=== PATIENT | female | born 1965 | race Caucasian/White ===

== ENCOUNTER → 2019-12-13 07:56 | Outpatient (CLI) | payer OTHER, SELFPAY ==
--- NOTE | ~2019-12-13 | XR_ITS ---
XR chest 2V DATE: 12/13/2019 08:15 INDICATION: Cough TECHNIQUE: PA and lateral views COMPARISON: 01/16/2015 2 view chest FINDINGS: Normal heart size. No hilar or mediastinal enlargement. No pulmonary infiltrate or consolid ation, pleural effusion or pulmonary vascular congestion or pneumothorax is detected. Dextroscoliosis of the thoracic spine. IMPRESSION: No active cardiopulmonary disease or significant change since 01/20/2015 Reviewed, dictated and finalized at location B. IMPRESSION: No active cardiopulmonary disease or significant change since 2014
== END ==
PROVIDERS: PCP Family Medicine; Visit Provider Family Medicine
DX: R05 Cough (principal)
CPT/HCPCS: 71046

== ENCOUNTER 2021-10-01 00:11 | Day surgery (SDC) | payer OTHER, SELFPAY ==
[2021-09-12 14:14] VITALS: BMI 34.7
[2021-10-01 07:39] VITALS: BP 125/83; PULSE 76; RESP 18; TEMP 36.3; O2SAT 99; BMI 34.3
[2021-10-01] MEDS: LACTATED RINGERS 1,000 ML 150 ML IV CONT (07:48)
--- NOTE | 2021-10-01 08:10 | WPDANESEPPF ---
Anes - Initial Pre Proc Eval Procedure: Operation Date: 10/01/21 08:30 Proposed Procedures p Screening Colonoscopy - Ben Mariscal MD Date/Time: 10/01/21 08:10 Surgeon: Ben Mariscal MD Pre Op Diagnosis: neoplasm screening Patient Data Age: 55 Gender: F Height: 1.73 m Weight: 102.4 kg Last Vital Signs Temp 36.3 C L 10/01/21 07:39 Pulse 76 10/01/21 07:39 Resp 18 10/01/21 07:39 BP 125/83 10/01/21 07:39 Pulse Ox 99 10/01/21 07:39 Allergies Allergy/AdvReac Type Severity Reaction Status Date / Time diclofenac [From Arthrotec] Allergy Severe Rash Verified 10/01/21 07:38 misoprostol [From Arthrotec] Allergy Severe Rash Verified 10/01/21 07:38 nitrofurantoin Allergy Severe Rash Verified 10/01/21 07:38 [From Macrobid] codeine Allergy Unknown vaginal Verified 10/01/21 07:38 itching Penicillins Allergy Unknown Itching Verified 10/01/21 07:38 ciprofloxacin AdvReac Unknown joint pain Verified 10/01/21 07:38 Home Medications Medication Instructions Recorded Confirmed Type clonazepam 2 mg tablet 2 mg PO DAILY 01/18/21 09/12/21 History lamotrigine 200 mg tablet 200 mg PO BID tablet 01/18/21 09/12/21 History linaclotide 145 mcg capsule 145 mcg PO DAILY 01/18/21 09/12/21 History cholecalciferol (vitamin D3) 50 50 mcg PO DAILY #90 tablet 08/01/21 09/12/21 Rx mcg (2,000 unit) tablet estradiol 10 mcg vaginal tablet 10 mcg VAGINAL 2XW 08/01/21 09/12/21 History calcium carbonate 400 mg calcium 800 mg PO DAILY tablet 09/12/21 09/12/21 History (1,000 mg) chewable tablet sulfamethoxazole 800 1 tablet PO Q12H #6 tablet 09/12/21 09/12/21 Rx mg-trimethoprim 160 mg tablet Patient hx anesthesia problems: none Family hx anesthesia problems: none Results Review: All pre-operative results and documents have been reviewed as part of the pre-operative evaluation. [facility] Past Medical History Medical History Anxiety H/O irritable bowel syndrome History of vaginal delivery x1 Hx of cyst of breast 1989 Surgical History Surgical History History of bladder suspension procedure History of bunionectomy of left great toe 2016, 2018 History of hysterectomy 2001 History of left knee replacement 2004 History of right knee joint replacement 1979 Hx of cholecystectomy mid 1993 Hx of hysterectomy 2000 Hx of ovarian cystectomy 1987 & 1992 Hx of tonsillectomy early 1090s Hx of tubal ligation 1994 Family History Family History Father Cancer of kidney Mother Cancer of kidney Hypertension Heart problem Daughter Anxiety Grandparent Diabetes mellitus Grandparent Alcoholism Social History Social History Smoking status: Never smoker Second hand tobacco smoke exposure: Yes Alcohol intake: never Substance use: never Substance use type: does not use Living arrangements: with family Spiritual care concerns: No Anes - Eval Final PreProcedure Day of Procedure 10/01/21 08:10 Patient weight: obese Heart: regular rate and rhythm Lungs: clear to auscultation Airway: Mallampati scale class II Neurological: alert and oriented Last oral intake: >/= 8 hours ASA classification: II Emergent: no Anesthetic plan: proceed Anesthesia type and monitoring: general GIVS and standard monitoring Results Review: All pre-operative results and documents have been reviewed as part of the pre-operative evaluation. Informed Consent: The patient's anesthetic plan and its attendant risks and benefits were discussed with the patient/family/POA. Questions were solicited and answers provided to the satisfaction of the patient/family/POA.
--- NOTE | 2021-10-01 08:18 | WPDGICN ---
Assessment and Plan Assessment and plan (1) Screening for colon cancer: Code(s): Z12.11 - Encounter for screening for malignant neoplasm of colon Status: Acute Assessment and Plan: Patient presents for neoplasia screening colonoscopy. She appears to be at average risk for colon polyps. Further recommendations will be given after endoscopy. GI Consult Note Consult date/time: 10/01/21 08:18 HPI: Kayla Castañeda is a 55 year old female Presents for screening colonoscopy. Patient's current weight appetite bowel movements are normal. She denies abdominal pain. She has had no bleeding. Family history is noncontributory. Patient presents for neoplasia screening. Review of Systems Review of Systems: All systems reviewed & are unremarkable except as noted in HPI and below PMFSH Past Medical History Medical History Anxiety H/O irritable bowel syndrome History of vaginal delivery x1 Hx of cyst of breast 1989 Surgical History Surgical History History of bladder suspension procedure History of bunionectomy of left great toe 2016, 2018 History of hysterectomy 2000 History of left knee replacement 2003 History of right knee joint replacement 1979 Hx of cholecystectomy mid 1993 Hx of hysterectomy 2000 Hx of ovarian cystectomy 1987 & 1992 Hx of tonsillectomy early 1090s Hx of tubal ligation 1994 Family History Family History Father Cancer of kidney Mother Cancer of kidney Hypertension Heart problem Daughter Anxiety Grandparent Diabetes mellitus Grandparent Alcoholism Social History Social History Smoking status: Never smoker Second hand tobacco smoke exposure: Yes Alcohol intake: never Substance use: never Substance use type: does not use Living arrangements: with family Spiritual care concerns: No Meds Home Medications and Allergies Home Medications Medication Instructions Recorded Confirmed Type clonazepam 2 mg tablet 2 mg PO DAILY 01/18/21 09/12/21 History lamotrigine 200 mg tablet 200 mg PO BID tablet 01/18/21 09/12/21 History linaclotide 145 mcg capsule 145 mcg PO DAILY 01/18/21 09/12/21 History cholecalciferol (vitamin D3) 50 50 mcg PO DAILY #90 tablet 08/01/21 09/12/21 Rx mcg (2,000 unit) tablet estradiol 10 mcg vaginal tablet 10 mcg VAGINAL 2XW 08/01/21 09/12/21 History calcium carbonate 400 mg calcium 800 mg PO DAILY tablet 09/12/21 09/12/21 History (1,000 mg) chewable tablet sulfamethoxazole 800 1 tablet PO Q12H #6 tablet 09/12/21 09/12/21 Rx mg-trimethoprim 160 mg tablet Allergies Allergy/AdvReac Type Severity Reaction Status Date / Time diclofenac [From Arthrotec] Allergy Severe Rash Verified 10/01/21 07:38 misoprostol [From Arthrotec] Allergy Severe Rash Verified 10/01/21 07:38 nitrofurantoin Allergy Severe Rash Verified 10/01/21 07:38 [From Macrobid] codeine Allergy Unknown vaginal Verified 10/01/21 07:38 itching Penicillins Allergy Unknown Itching Verified 10/01/21 07:38 ciprofloxacin AdvReac Unknown joint pain Verified 10/01/21 07:38 Vital Signs Vital Signs - 24 hr 10/01/21 07:39 Temperature 97.3 F L Pulse Rate 76 Respiratory Rate 18 Blood Pressure 125/83 Pulse Oximetry 99 Exam Narrative: Physical exam reveals patient be alert. Vital signs stable. HEENT exam is unremarkable. Patient is anicteric. Lungs are clear to auscultation and percussion. Heart is without murmur or extra sounds. Abdominal exam bowel sounds are present soft nontender with no hepatosplenomegaly. Digital external rectal exam is normal.
[2021-10-01 08:46] VITALS: BP 128/71; PULSE 75; RESP 26; O2SAT 100
[2021-10-01 08:56] VITALS: BP 96/59; PULSE 70; RESP 16; O2SAT 100
[2021-10-01 09:06] VITALS: BP 109/71; PULSE 70; RESP 20; O2SAT 100
== END 2021-10-01 09:30 | disposition home or self-care (01) ==
PROVIDERS: PCP Internal Medicine; Visit Provider Internal Medicine Gastroenterology
PROC: 0DJD8ZZ Inspection of Lower Intestinal Tract, Via Natural or Artificial Opening Endoscopic (ICD-10-PCS; CPT 45378; principal; 2021-10-01 08:30)
DX: Z12.11 Encounter for screening for malignant neoplasm of colon (principal); K64.8 Other hemorrhoids; F41.9 Anxiety disorder, unspecified; E66.9 Obesity, unspecified; Z68.34 Body mass index [BMI] 34.0-34.9, adult
CPT/HCPCS: 45378; J2704; J7120

== ENCOUNTER 2022-04-12 09:29 | Outpatient (CLI) | payer OTHER, SELFPAY ==
--- NOTE | ~2022-04-12 | DEXA_ITS ---
Bone Density Report Name: ANGELES MASON Age: 56 Sex: Female Ethnicity: White Date of : 1965 Indication: postmenopausal; screening for osteoporosis; height loss; hysterectomy; Referring Provider: SAUL ZAMORA Study: Bone densitometry was performed. Exam Date: April 12, 2022 Accession number: [id number] Bone Density: Region BMD T-score Z-score Classification AP Spine(L3, L4) 0.968 -1.2 0.2 Osteopenia Femoral Neck (Left) 0.809 -0.4 0.9 Normal Total Hip (Left) 0.834 -0.9 0.0 Normal Femoral Neck (Right) 0.819 -0.3 0.9 Normal Total Hip (Right) 0.928 -0.1 0.7 Normal Total Hip Mean 0.881 -0.5 0.4 Normal World Health Organization criteria for BMD impression classify patients as: Normal (T-score at or above -1.0), Osteopenia (T-score between -1.0 and -2.5), or Osteoporosis (T-score at or below -2.5). 10-year Fracture Risk(1): Major Osteoporotic Fracture 5.7% Hip Fracture 0.1% Reported Risk Factors: [place] (), Neck BMD=0.809, BMI=36.1 (1) FRAX(R) Version 3.08. Fracture probability calculated for an untreated patient. Fracture probability may be lower if the patient has received treatment. Clinical Information Provided by Patient: Has used the following medications: Vitamin D, Calcium Has the following medical conditions: Hysterectomy Patient maximum height was 67 Menopause Age: 36 No regular weight bearing exercise Drinks caffeinated beverages Onset of menses at age 12 Number of children 1 Impression: The patient has low bone mass, based on the Total Spine T-score. The patient has an estimated ten-year risk of hip fracture of 0.1% and an estimated ten-year risk of major fracture of 5.7%, based on the WHO FRAX algorithm. Discussion: BONE DENSITY IS LOW AT ONE OR MORE SKELETAL SITES. This patient's lowest T-score is low at one or more skeletal sites. It meets the World Health Organization's (WHO) criteria for ?low bone mass? (T-score between -1.0 and -2.5). The patient's 10-year risk of fracture as calculated by FRAX is less than the threshold where pharmacological therapy is recommended by the National Osteoporosis Foundation (NOF). However, all treatment decisions require clinical judgment and consideration of individual patient factors, including patient preferences, comorbidities, previous drug use, risk factors not captured in the FRAX model (e.g., frailty, falls, vitamin D deficiency, increased bone turnover, interval significant decline in bone density) and possible under or overestimation of fracture risk by FRAX. The patient should follow a healthful lifestyle (good nutrition with adequate calcium and vitamin D, and appropriate weight-bearing exercise). Follow-Up: Consider repeating this study in 2 to 3 years to reassess this patient's status, or sooner if
== END 2022-04-12 09:30 | disposition home or self-care (01) ==
LOC: ANHIMG 09:30
PROVIDERS: PCP Internal Medicine; Visit Provider Internal Medicine
DX: Z78.0 Asymptomatic menopausal state (principal); M85.88 Other specified disorders of bone density and structure, other site
CPT/HCPCS: 77080

== ENCOUNTER 2022-09-17 01:11 | Day surgery (SDC) | payer OTHER, SELFPAY ==
[2022-09-05 13:44] VITALS: BMI 36.2
[2022-09-17 08:10] VITALS: BP 123/83; PULSE 85; RESP 16; TEMP 36.3; O2SAT 96; BMI 37.0
[2022-09-17] MEDS: LACTATED RINGERS 1,000 ML 150 ML IV CONT (08:18)
--- NOTE | 2022-09-17 08:36 | WPDANESEPPF ---
Anes - Initial Pre Proc Eval Procedure: Operation Date: 09/17/22 09:30 Proposed Procedures p Esophagogastroduodenoscopy EGD - Ben Mariscal MD Date/Time: 09/17/22 08:36 Surgeon: Ben Mariscal MD Pre Op Diagnosis: GERD Patient Data Age: 56 Gender: F Height: 1.7 m Weight: 107.2 kg Last Vital Signs Temp 36.3 C L 09/17/22 08:10 Pulse 85 09/17/22 08:10 Resp 16 09/17/22 08:10 BP 123/83 09/17/22 08:10 Pulse Ox 96 09/17/22 08:10 O2 Del Method Room Air 09/17/22 08:10 Allergies Allergy/AdvReac Type Severity Reaction Status Date / Time diclofenac [From Arthrotec] Allergy Severe Rash Verified 09/17/22 08:09 misoprostol [From Arthrotec] Allergy Severe Rash Verified 09/17/22 08:09 nitrofurantoin Allergy Severe Rash Verified 09/17/22 08:09 [From Macrobid] cinnamon Allergy Mild Blister Verified 09/17/22 08:09 codeine Allergy Unknown vaginal Verified 09/17/22 08:09 itching Penicillins Allergy Unknown Itching Verified 09/17/22 08:09 ciprofloxacin AdvReac Unknown joint pain Verified 09/17/22 08:09 Home Medications Medication Instructions Recorded Confirmed Type linaclotide 145 mcg capsule 145 mcg PO DAILY 01/18/21 09/17/22 History (Linzess) estradiol 10 mcg vaginal tablet 10 mcg vaginal 2XW 08/01/21 09/17/22 History (Vagifem) calcium carbonate 400 mg calcium 800 mg PO DAILY 09/12/21 09/17/22 History (1,000 mg) chewable tablet (Antacid Ultra Strength) clonazepam 2 mg tablet 1 mg PO DAILY 05/07/22 09/17/22 History triamcinolone acetonide 0.1 % 1 applic dental TID PRN mouth 05/07/22 09/17/22 Rx dental paste irritation #5 grams vibegron 75 mg tablet (Gemtesa) 75 mg PO DAILY 05/07/22 09/17/22 History omeprazole 20 mg capsule,delayed 20 mg PO BID #180 caps 08/15/22 09/17/22 Rx release Caltrate 600 plus D 1 tab-cap PO DAILY 09/05/22 09/17/22 History Osteo Bi-Flex 1 tab-cap PO DAILY 09/05/22 09/17/22 History multivitamin-ferrous 1 tablet PO DAILY 09/05/22 09/17/22 History fumarate-folic acid 18 mg-400 mcg tablet (Centrum Women) lamotrigine 200 mg tablet 200 mg PO .COMPLEX 09/06/22 09/17/22 History Patient hx anesthesia problems: none Family hx anesthesia problems: none Results Review: All pre-operative results and documents have been reviewed as part of the pre-operative evaluation. [facility] Past Medical History Medical History Anxiety Broken toe H/O irritable bowel syndrome History of vaginal delivery x1 Hx of cyst of breast 1989 Surgical History Surgical History History of bladder suspension procedure History of bunionectomy of left great toe 2016, 2018 History of hysterectomy 2000 History of left knee replacement 2003 History of right knee joint replacement 1979 Hx of cholecystectomy mid 1993 Hx of hysterectomy 2000 Hx of ovarian cystectomy 1987 & 1992 Hx of tonsillectomy early 1090s Hx of tubal ligation 1994 Family History Family History Father Cancer of kidney Mother Cancer of kidney Hypertension Heart problem Daughter Anxiety Grandparent Diabetes mellitus Grandparent Alcoholism Social History Social History Smoking status: Never smoker Second hand tobacco smoke exposure: Yes Alcohol intake: never Substance use: never Substance use type: does not use Lack of Transportation: No Lack of Food: Never True Current Housing: I Have Housing Concerned About Future Housing: Decline to Answer Difficulty Paying Gas/Electric Bills: No Difficulty Paying for Meds: No Currently Unemployed: No Education: Master's Degree or Higher Difficulty w/ Childcare or Family Care: No Living arrangements: with family Gender identity (if verbalized by the patient): Female Spiritual care conc
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
[2022-09-17 10:06] VITALS: BP 101/64; PULSE 72; RESP 23; O2SAT 97
[2022-09-17 10:16] VITALS: BP 101/64; PULSE 72; RESP 23; O2SAT 97
[2022-09-17 10:26] VITALS: BP 110/71; PULSE 70; RESP 20; O2SAT 97
== END 2022-09-17 10:35 | disposition home or self-care (01) ==
PROVIDERS: PCP Family Medicine; Visit Provider Internal Medicine Gastroenterology
PROC: 0DJ08ZZ Inspection of Upper Intestinal Tract, Via Natural or Artificial Opening Endoscopic (ICD-10-PCS; CPT 43235; principal; 2022-09-17 09:30)
DX: K22.2 Esophageal obstruction (principal); K21.9 Gastro-esophageal reflux disease without esophagitis; F41.9 Anxiety disorder, unspecified
CPT/HCPCS: 43450; 43235; 87081; J2704; J7120

== ENCOUNTER 2022-11-07 19:23 | Emergency (ER) | payer OTHER, SELFPAY ==
--- NOTE | 2022-11-07 19:25 | ED.GENADULT ---
HPI - General Adult General Chief complaint: Skin/Abscess/Foreign Body Stated complaint: face injury; busted lip Time Seen by Provider: 11/07/22 19:35 Source: patient Mode of arrival: ambulatory Limitations: no limitations History of Present Illness HPI narrative: 57-year-old female presents with concern for a nonhealing wound on her lip. She reports on Friday she tripped and fell landing on her face. She reports she sustained a laceration to her upper lip. She reports her boyfriend told her it would heal on its own. She reports it is not healing well. She reports the wound was gaping. She reports scabs started to form but when she eats the scab seems to open up. She has been using Vaseline and trying eat soft foods. She reports other facial injuries her healing without issue, she had an abrasion on her forehead that is healing and a bruise to her nose that is resolving. MD complaint: Wound Related Data Home Medications Medication Instructions Recorded Confirmed linaclotide 145 mcg capsule 145 mcg PO DAILY 01/18/21 11/07/22 (Linzess) estradiol 10 mcg vaginal tablet 10 mcg vaginal 2XW 08/01/21 11/07/22 (Vagifem) calcium carbonate 400 mg calcium 800 mg PO DAILY 09/12/21 11/07/22 (1,000 mg) chewable tablet (Antacid Ultra Strength) clonazepam 2 mg tablet 1 mg PO DAILY 05/07/22 11/07/22 vibegron 75 mg tablet (Gemtesa) 75 mg PO DAILY 05/07/22 11/07/22 Caltrate 600 plus D 1 tab-cap PO DAILY 09/05/22 11/07/22 Osteo Bi-Flex 1 tab-cap PO DAILY 09/05/22 11/07/22 multivitamin-ferrous 1 tablet PO DAILY 09/05/22 11/07/22 fumarate-folic acid 18 mg-400 mcg tablet (Centrum Women) lamotrigine 200 mg tablet 200 mg PO .COMPLEX 09/06/22 11/07/22 Allergies Allergy/AdvReac Type Severity Reaction Status Date / Time diclofenac [From Arthrotec] Allergy Severe Rash Verified 11/07/22 19:29 misoprostol [From Arthrotec] Allergy Severe Rash Verified 11/07/22 19:29 nitrofurantoin Allergy Severe Rash Verified 11/07/22 19:29 [From Macrobid] cinnamon Allergy Mild Blister Verified 11/07/22 19:29 codeine Allergy Unknown vaginal Verified 11/07/22 19:29 itching Penicillins Allergy Unknown Itching Verified 11/07/22 19:29 ciprofloxacin AdvReac Unknown joint pain Verified 11/07/22 19:29 Review of Systems Review of Systems: CONSTITUTIONAL: Denies malaise, chills, sweats, or fever. EYES: Denies visual changes ENT: Denies rhinorrhea, congestion CARDIOVASCULAR: Denies chest pain, palpitations RESPIRATORY: Denies cough or dyspnea. SKIN: Reports wound to her upper lip MUSCULOSKELETAL: Denies myalgia. NEUROLOGIC: Denies headache. All systems reviewed & are unremarkable except as noted in HPI and below PMFSH Past Medical History Medical History Anxiety Broken toe H/O irritable bowel syndrome History of vaginal delivery x1 Hx of cyst of breast 1989 Surgical History Surgical History History of bladder suspension procedure History of bunionectomy of left great toe 2016, 2018 History of hysterectomy 2000 History of left knee replacement 2004 History of right knee joint replacement 1979 Hx of cholecystectomy mid 1993 Hx of hysterectomy 2000 Hx of ovarian cystectomy 1987 & 1992 Hx of tonsillectomy early 1090s Hx of tubal ligation 1994 Family History Family History Father Cancer of kidney Mother Cancer of kidney Hypertension Heart problem Daughter Anxiety Grandparent Diabetes mellitus Grandparent Alcoholism Social History Social History Smoking status: Never smoker Second hand tobacco smoke exposure: Yes Alcohol intake: never Substance use: never Substance use type: does not use Lack of Transportation: No Lack of Food: Never True Current Housing: I Have Housing
[2022-11-07 19:32] VITALS: BP 129/89; PULSE 79; RESP 16; TEMP 36.7; O2SAT 100
== END 2022-11-07 19:50 | disposition home or self-care (01) ==
PROVIDERS: Emergency Provider Nurse Practitioner; PCP Family Medicine
DX: S01.511A Laceration without foreign body of lip, initial encounter (principal); W01.0XXA Fall on same level from slipping, tripping and stumbling without subsequent striking against object, initial encounter; Z96.653 Presence of artificial knee joint, bilateral; F41.9 Anxiety disorder, unspecified
CPT/HCPCS: 99213; G0463

== ENCOUNTER 2023-06-16 15:35 | Outpatient (CLI) | payer OTHER, SELFPAY ==
[2023-06-16 19:56] LABS: Appearance Urine Clear (Clear); Bilirubin Urine Negative (Negative); Blood Urine Negative (Negative); Color Urine Yellow (Yellow); Glucose Urine UA Negative (Negative); Ketones Urine Negative (Negative); Leukocyte Esterase Ur Negative LEU/UL (Negative); Nitrate Urine Negative (Negative); Protein Urine Negative (Negative); Specific Grav Ur 1.014 (1.001-1.035); Urobilinogen Urine 0.2 mg/dL (<2.0); pH Urine 5.5 (5.0-9.0)
[2023-06-16 19:59] LABS: Add Urine Microscopic? NO
[2023-06-16 20:02] LABS: Rheumatoid Factor < 12.0 IU/ML (<12)
== END 2023-06-16 15:36 | disposition home or self-care (01) ==
LOC: ANHGOSHLAB 15:37
PROVIDERS: PCP Family Medicine; Visit Provider Nurse Practitioner
DX: R82.90 Unspecified abnormal findings in urine (principal); M25.50 Pain in unspecified joint
CPT/HCPCS: 36415; 81003; 86430

== ENCOUNTER → 2023-08-05 09:55 | Outpatient (CLI) | payer OTHER, SELFPAY ==
--- NOTE | ~2023-08-05 | XR_ITS ---
AP view of the pelvis and AP and lateral views of the bilateral hips Clinical history: Pain Findings: No acute fracture or dislocation is seen. Osseous alignment is anatomic. Bilateral hip and SI joint spaces are preserved. Soft tissues are unremarkable. Impression: No significant abnormality is seen. Reviewed, dictated and finalized at location . ESPONDENCE COORDINATOR Impression: No significant abnormality is seen.
== END ==
PROVIDERS: PCP Family Medicine; Visit Provider Anesthesiology Pain Medicine
DX: M25.552 Pain in left hip (principal); M25.551 Pain in right hip
CPT/HCPCS: 73521

== ENCOUNTER → 2023-08-08 15:09 | Outpatient (CLI) | payer OTHER, SELFPAY ==
--- NOTE | ~2023-08-08 | MM_ITS ---
EXAMINATION: MM screening daphne BI w sonia HISTORY: Screening TECHNIQUE: Craniocaudal and mediolateral oblique 3-D tomosynthesis images were obtained and synthetic 2-D images were generated. CAD analysis was submitted and interpreted. COMPARISON: No prior mammogram is available for comparison at this institution. BREAST PARENCHYMAL COMPOSITION: There are scattered areas of fibroglandular density. FINDINGS: There is no evidence of suspicious mass, calcification, or architectural distortion to sugg est malignancy in either breast. There has been no suspicious interval change. IMPRESSION: 1. No mammographic evidence of malignancy. 2. Recommend routine screening mammography in one year. BI-RADS Category 1: Negative Reviewed, dictated and finalized at location A. NKLER TRUCK DRIVER
== END ==
PROVIDERS: PCP Registered Nurse; Visit Provider Registered Nurse
DX: Z12.31 Encounter for screening mammogram for malignant neoplasm of breast (principal)
CPT/HCPCS: 77063; 77067

== ENCOUNTER → 2023-09-01 15:14 | Outpatient (CLI) | payer OTHER, SELFPAY ==
--- NOTE | ~2023-09-01 | XR_ITS ---
EXAMINATION: XR knee RT 3V DATE: 09/01/2023 15:31 INDICATION: Bilateral primary osteoarthritis of knee. TECHNIQUE: 3 views of right knee including standing views were obtained. COMPARISON: None. FINDINGS: Bone alignment is normal. No fracture. There is mild tricompartmental osteoarthritis. There is chondrocalcinosis of the menisci. No knee joint effusion. IMPRESSION: 1. Mild right knee osteoarthritis. Reviewed, dictated and finalized at location E. ATRIC ASSISTANT
--- NOTE | ~2023-09-01 | XR_ITS ---
EXAMINATION: XR knee LT 3V DATE: 09/01/2023 15:31 INDICATION: Left knee pain. TECHNIQUE: 3 views of left knee including standing views were obtained. COMPARISON: Left knee radiographs 01/26/2014 FINDINGS: Bone alignment is normal. No fracture. There is moderate osteoarthritis of lateral compartm ent and mild osteoarthritis of medial and patellofemoral compartments. No knee joint effusion. IMPRESSION: 1. Moderate left knee osteoarthritis. Reviewed, dictated and finalized at location E. INSERTER
== END ==
PROVIDERS: PCP Anesthesiology Pain Medicine; Visit Provider Anesthesiology Pain Medicine
DX: M17.0 Bilateral primary osteoarthritis of knee (principal)
CPT/HCPCS: 73562

== ENCOUNTER 2023-09-05 13:30 | Outpatient (RCR) | payer OTHER, SELFPAY ==
--- NOTE | 2023-08-07 16:57 | OPREHPOC ---
Outpatient Therapy Plan of Care This is a Multidisciplinary Plan of Care that may contain components documented by all disciplines (PT, OT, and ST.) PT Problem 1 PT Problem #1 Knowledge Deficit PT Goal 1 Goal Pt to be IND with issued HEP. Target Visit 8 PT Problem 2 PT Problem #2 Pain PT Goal 1 Goal Pt to report hip pain no greater than 3/10 in the last week. Target Visit 8 PT Goal 2 Goal Pt to report 75% improvement in overall symptoms. Target Visit 8 PT Problem 3 PT Problem #3 Impaired Strength PT Goal 1 Goal Pt to improve antwon hip strength to grossly 4/5. Target Visit 8 PT Goal 2 Goal Pt to improve 5xSTS time from 25s to 15s without UE support Target Visit 8 PT Problem 4 PT Problem #4 Impaired Gait PT Goal 1 Goal Pt to improve 2 min walk distance from 288ft to 350ft. Target Visit 8 PT Goal 2 Goal Pt to ambulate with equal stride length Target Visit 8
--- NOTE | 2023-08-07 16:57 | PTOPEVAL1 ---
Assessment and note entered by Rodrigue Radford, PT, DPT Evaluation Information Assessment Status Evaluation Diagnosis R hip pain Onset 3 months Subjective Information Pt states she has pain in both hips but mostly the R hip. She states she has had more than 50 falls in her adult life. She states her hip hurts all the time, especially when trying to get up from a chair, getting out of bed, and on stairs. She states she avoids stairs d/t pain. Pt states her feet are messed up and has had 4 surgeries. Pt does not work, she likes to walk her dog. Reported Pain Level Pain Score 6: Self Report Assessment PT Clinical Summary Kayla presents to therapy today for her initial evaluation with a diagnosis of hip pain. Today she demonstrate passive hip ROM that is WNL but demonstrates significant amounts of hip weakness antwon. She ambulates with deviations including a L side trunk lean with no passive hip extension on the R. Skilled therapy services are indicated to manage pain, improve strength, improve gait, and to promote a return to PLOF without limitations. LEFS: Plan of Care Interventions Electrical Stimulation,Gait Training,Hot Pack/Cold Pack,Manual Therapy,Neuro Re-education,Patient/ Caregiver Educati,Therapeutic Activities, Therapeutic Exercise PT Services Indicated Yes Treatment Frequency and 2x/wk for 8 visits Duration These treatments will address the objective and functional deficits as defined above. The patient will be advanced safely and appropriately in order for the patient to progress towards his/her prior level of function. Additional exercises will be introduced and as well as a comprehensive home exercise program upon discharge, if needed, ?to ensure carryover of functional gains achieved in the clinic. This treatment plan has been reviewed and agreement upon by the patient.
--- NOTE | 2023-08-25 09:06 | PCPTNOTE ---
Patient cancelled this morning secondary to illness.
--- NOTE | 2023-09-05 14:47 | PTOPDC ---
Assessment and note entered by Rodrigue Radford, PT, DPT Evaluation Information Assessment Status Discharge Diagnosis R hip pain Onset 3 months Subjective Information Pt states overall she feels like she is making a lot of progress since starting therapy. She states her hips are feeling really good, except for when she sits or stands for a prolonged period of time . She states she is starting to feel more confident with stairs but is still nervous on these. Reported Pain Level Pain Score 4: Self Report Assessment PT Clinical Summary Kayla presents to therapy today for her progress report following 7 visits of skilled therapy to treat her diagnosis of hip pain. Today she demonstrate improved passive hip strength, equal to the uninvolved side, improved hip strength antwon, and improved gait speed. Her functional mobility is not primarily limited by her knee pain. She elected to continue with her HEP IND and get order for her knee if her upcoming knee injections d/t help with her pain. LEFS: Plan of Care PT Services Indicated No
== END 2023-09-05 15:52 | disposition home or self-care (01) ==
LOC: ANHGOSHPT 13:30
PROVIDERS: Visit Provider Anesthesiology Pain Medicine
DX: M54.9 Dorsalgia, unspecified (principal); M15.9 Polyosteoarthritis, unspecified; M25.559 Pain in unspecified hip; G89.29 Other chronic pain
CPT/HCPCS: 97110; 97161; 97530

== ENCOUNTER 2024-03-16 09:28 | Outpatient (CLI) | payer OTHER, SELFPAY ==
--- NOTE | ~2024-03-16 | MR_ITS ---
MRI left knee without contrast Ordering provider: Jone Schaefer MD History: . M17.0 - Bilateral primary osteoarthritis of knee . Comparison: None. FINDINGS: QUADRICEPS, PATELLAR TENDONS AND CRUCIATE LIGAMENTS: The quadriceps and patellar tendons are unremar kable. The posterior cruciate ligament is normal. The anterior cruciate ligament insertion to the fem ur is not clear which is suggestive of partial versus complete tear with high signal in the area. MENISCI: Tear is seen in the posterior horn of the lateral meniscus which is extending to the unders urface. Tear in the anterior horn also seen. The medial meniscus is normal. COLLATERAL LIGAMENTS: Bright signal areas are seen in the lateral retinacula suggestive of a complete tear. PATELLA: Normal position without tilt or subluxation. The medial and lateral patellar retinacula and medial patellofemoral ligament are intact. Narrowing of the joint space with some articular cystic ch anges seen suggestive of osteoarthritic changes of the patellofemoral joint. Overlying cartilage in t he patella is not demonstrated. JOINT SPACE/ARTICULAR CARTILAGE: Irregularity of the articular surface is seen in the lateral compart ment with narrowing of the joint space. This is suggestive of osteoarthritis. Joint effusion is noted with fluid in the suprapatellar bursa. BONES: Bone contusion is seen in the lateral femoral condyle and in the lateral tibial plateau in the subarticular areas. Bone contusion also seen in the area of the femur posterior to the patella of th e lateral femoral condyle. No other definite areas of bone contusion is seen. SUPERFICIAL AND DEEP SOFT TISSUE: No popliteal cyst. No bursitis. No muscle strain. Otherwise, bettie l. Fluid is seen posterior to the medial aspect of the joint suggestive of Woods's cyst. IMPRESSION: Partial versus complete tear of the anterior cruciate ligament. Tear in the anterior and posterior horn of the lateral meniscus. Bone contusion in the lateral femoral condyle and lateral tibial plateau. Joint effusion. Osteoarthritic changes in the knee and patellofemoral joints. Reviewed, dictated and finalized at location A.
== END 2024-03-16 09:29 ==
LOC: GOSHIMG 09:28
PROVIDERS: PCP Family Medicine; Visit Provider Anesthesiology Pain Medicine
DX: M71.20 Synovial cyst of popliteal space [Baker], unspecified knee (principal); M25.562 Pain in left knee; M25.561 Pain in right knee; M17.0 Bilateral primary osteoarthritis of knee; S83.282A Other tear of lateral meniscus, current injury, left knee, initial encounter; S80.12XA Contusion of left lower leg, initial encounter; M25.462 Effusion, left knee
CPT/HCPCS: 73721

== ENCOUNTER 2024-05-21 08:10 | Outpatient (CLI) | payer OTHER, SELFPAY ==
--- NOTE | 2024-05-21 08:21 | ECG_ITS ---
Test Date: 2024-05-21 08:30:39 Measurements Intervals [place] Rate: 69 P: 35 CT: 139 QRS: -38 QRSD: 91 T: -18 QT: 414 QTc: 445 Interpretive Statements SINUS RHYTHM POSSIBLE LEFT ATRIAL ENLARGEMENT [-0.1mV P WAVE IN V1/V2] MARKED LEFT AXIS DEVIATION [QRS AXIS < -30] LOW QRS VOLTAGE IN PRECORDIAL LEADS [QRS DEFLECTION < 1.0 mV IN CHEST LEADS] POSSIBLE INFERIOR MYOCARDIAL INFARCTION , OF INDETERMINATE AGE [30 ms Q WAVE IN II/aVF] MODERATE T-WAVE ABNORMALITY, CONSIDER ANTEROLATERAL ISCHEMIA [-0.1+ mV T WAVE IN V3-V6] ABNORMAL ECG No previous ECG available for comparison Electronically Signed On 05-21-2024 12:53:56 CDT by Damian Delatorre M.D.
[2024-05-21 08:44] LABS: Add Urine Microscopic? NO; Appearance Urine Clear (Clear); Bilirubin Urine Negative (Negative); Blood Urine Negative (Negative); Color Urine Yellow (Yellow); Glucose Urine UA Negative (Negative); Ketones Urine Negative (Negative); Leukocyte Esterase Ur Negative LEU/UL (Negative); Nitrate Urine Negative (Negative); Protein Urine Negative (Negative); Specific Grav Ur 1.008 (1.001-1.035); Urobilinogen Urine 0.2 mg/dL (<2.0)
[2024-05-21 08:49] LABS: Alanine Aminotransferase 22 U/L (6-35); Albumin Level 4.2 g/dL (3.5-5.1); Alkaline Phosphatase 87 U/L (38-126); Anion Gap 11 mmol/L (4-12); Aspartate Amino Transferase 29 U/L (14-36); Bilirubin,Total 0.5 mg/dL (0.2-1.3); Blood Urea Nitrogen 9 mg/dL (7-17); Calcium 9.4 mg/dL (8.4-10.2); Carbon Dioxide 27 mmol/L (22-30); Chloride 103 mmol/L (98-107); Cholesterol 146 mg/dL (0-200); Estimated Glomerular Filt Rate > 60; Glucose 90 mg/dL (65-110); HDL Direct 79 mg/dL; Sodium 141 mmol/L (137-145); Triglycerides 52 mg/dL (<150)
[2024-05-21 08:59] LABS: LDL Cholesterol Direct 41 mg/dL
[2024-05-21 09:20] LABS: Hematocrit 42.6 % (37.0-47.0); Hemoglobin 13.5 g/dL (12.0-15.0); Mean Corpuscular HGB Conc 31.7 g/dl (32-36); Mean Corpuscular Hemoglobin 30.1 pg (26-34); Mean Corpuscular Volume 94.9 fl (80-100); Mean Platelet Volume 10.5 fl (7.4-10.4); Platelet Count Result 340 k/mm3 (150-375); Red Blood Count 4.49 M/mm3 (4.2-5.4); Red Cell Distribution Width 15.2 % (11.5-14.5); White Blood Count 8.2 K/mm3 (4.5-10.0)
[2024-05-21 09:29] LABS: Vitamin D 25 Hydroxy 47.1 ng/mL
== END 2024-05-21 08:11 | disposition home or self-care (01) ==
PROVIDERS: PCP Family Medicine; Visit Provider Orthopaedic Surgery
DX: Z00.00 Encounter for general adult medical examination without abnormal findings (principal); M17.0 Bilateral primary osteoarthritis of knee; I10 Essential (primary) hypertension; N39.0 Urinary tract infection, site not specified; R94.31 Abnormal electrocardiogram [ECG] [EKG]
CPT/HCPCS: 36415; 80053; 80061; 81003; 82306; 84443; 85027; 93005

== ENCOUNTER 2024-07-05 15:46 | Outpatient (NON) | payer OTHER, SELFPAY | END 2024-07-05 15:47 | disposition home or self-care (01) | LOC: ANHGOSHLAB 15:48 | PROVIDERS: PCP Family Medicine; Visit Provider Family Medicine | DX: R30.0 Dysuria (principal) | CPT/HCPCS: 87077; 87086; 87186 ==

== ENCOUNTER 2024-07-12 08:38 | Outpatient (CLI) | payer OTHER, SELFPAY ==
--- NOTE | ~2024-07-12 | NM_ITS ---
EXAMINATION: NM juan stress w perfusion DATE: 07/12/2024 11:53 INDICATION: Other forms of dyspnea TECHNIQUE: Rest images were obtained following intravenous administration of 9.6 mCi Tc99m tetrofosmi n (Myoview). The patient was infused intravenously with Lexiscan (Regadenoson). Then, 30.6 mCi Tc99m tetrofosmin (Myoview) was administered intravenously, and stress images were obtained initially in th e supine position with repeat post stress imaging obtained in the prone position. Data was reconstruc dejah into short axis and horizontal and vertical long axis SPECT images. Gated SPECT images were also obtained. COMPARISON: None. FINDINGS: There is no perfusion abnormality on the post stress imaging obtained in both the supine an d prone position to suggest ischemia or infarction. There is normal left ventricular chamber size, w all motion and ejection fraction. Left ventricular ejection fraction measures >70%. IMPRESSION: 1. Normal myocardial perfusion at rest and during stress. 2. Left ventricular ejection fraction measuring >70%. Reviewed, dictated and finalized at location A.
--- NOTE | 2024-07-12 09:20 | EST_ITS ---
Patient Info Name: Kayla Castañeda Age: 58 years : 1965 Gender: Female Ht: 66 in Wt: 168 lbs BSA: 1.90 m2 HR: 74 bpm BP: 120 / 85 mmHg Heart Rhythm: Sinus Rhythm Exam Date: 07/12/2024 9:35 AM Exam Location: Echo Lab Patient Status: Outpatient Admit Date: 07/12/2024 Staff Ordering Physician: Donn Liriano DO Attending Provider: Donn Liriano DO Exercise Technologist: Shwetha Camacho CT Exercise Physician: Donn Liriano DO Exam Type: CA stress juan w NM Study Info Indications R06.09 - Other forms of dyspnea A regadenoson stress test was performed. Summary 1. 1. Negative lexiscan stress test for ischemic ST changes by ECG criteria. 2. 2. Stable hemodynamics throughout the test. 3. 3. Nuclear scan to follow and will be reported separately. Please correlate with it. 4. 4. Patient informed of the above results. Protocol: Lexiscan Stress ECG Details Stage: REST Duration (min): 1 min : 27 sec HR (bpm): 77 SBP (mmHg): 120 DBP (mmHg): 85 Stage: REST Duration (min): 6 min : 31 sec HR (bpm): 71 SBP (mmHg): 120 DBP (mmHg): 85 Stage: STAGE 1 Duration (min): 1 min : 0 sec HR (bpm): 108 SBP (mmHg): 112 DBP (mmHg): 80 Stage: RECOVERY Duration (min): 1 min : 0 sec HR (bpm): 104 SBP (mmHg): 112 DBP (mmHg): 80 Stage: RECOVERY Duration (min): 2 min : 0 sec HR (bpm): 101 SBP (mmHg): 112 DBP (mmHg): 80 Stage: RECOVERY Duration (min): 3 min : 0 sec HR (bpm): 93 SBP (mmHg): 108 DBP (mmHg): 76 Stage: RECOVERY Duration (min): 3 min : 47 sec HR (bpm): 98 SBP (mmHg): 108 DBP (mmHg): 76 Rest HR: 71 bpm Peak HR: 108 bpm Rest Sys BP: 120 mmHg Peak Sys BP: 112 mmHg Max Pred HR: 160 bpm % Max Pred HR: 68 % Target HR: 136 bpm Max RPP: 12,096 bpm*mmHg Termination Reason: Completed protocol Cardiac Symptoms: Shortness of breath Total Time: 1 min : 0 sec Rest Royal BP: 85 mmHg Peak Royal BP: 80 mmHg Total Dose: 0.4 mg Resting ECG Sinus rhythm, anterior infarct, age indeterminate, inferior infarct, age indeterminate. Stress ECG No ST changes. Arrhythmias None. Report Signatures
== END 2024-07-12 08:39 | disposition home or self-care (01) ==
LOC: ANHCARD 08:41
PROVIDERS: PCP Family Medicine; Visit Provider Internal Medicine Cardiovascular Disease
DX: I50.1 Left ventricular failure, unspecified (principal)
CPT/HCPCS: 78452; 93017; A9502; J2785

== ENCOUNTER 2024-07-20 13:49 | Outpatient (CLI) | payer OTHER, SELFPAY ==
[2024-07-20 15:30] LABS: Basophils Absolute Auto 0.1 K/mm3 (0.0-0.1); Basophils Percent Auto 0.6 % (0.2-1.2); Eosinophils Absolute Auto 0.2 K/mm3 (0-0.3); Eosinophils Percent Auto 1.7 % (0-4.4); Hematocrit 41.1 % (37.0-47.0); Hemoglobin 13.2 g/dL (12.0-15.0); Immature Granulocyte Absolute 0.03 K/mm3 (0.00-0.031); Immature Granulocyte Percent A 0.3 % (0-0.5); Lymphocytes Absolute Auto 2.53 K/mm3 (0.9-3.2); Lymphocytes Percent Auto 28.2 % (18.3-44.2); Mean Corpuscular HGB Conc 32.1 g/dl (32-36); Mean Corpuscular Hemoglobin 30.6 pg (26-34); Mean Corpuscular Volume 95.4 fl (80-100); Mean Platelet Volume 9.7 fl (7.4-10.4); Monocytes Absolute Auto 0.4 K/mm3 (0.1-0.6); Monocytes Percent Auto 4.8 % (2.6-8.5); Neutrophils Absolute Auto 5.8 K/mm3 (1.3-6.7); Neutrophils Percent Auto 64.4 % (45.5-73.1); Platelet Count Result 330 k/mm3 (150-375); Red Blood Count 4.31 M/mm3 (4.2-5.4); Red Cell Distribution Width 13.2 % (11.5-14.5)
[2024-07-20 15:34] LABS: Add Urine Microscopic? NO; Appearance Urine Clear (Clear); Bilirubin Urine Negative (Negative); Blood Urine Negative (Negative); Color Urine Yellow (Yellow); Glucose Urine UA Negative (Negative); Ketones Urine Trace mg/dL (Negative); Leukocyte Esterase Ur Negative LEU/UL (Negative); Nitrate Urine Negative (Negative); Protein Urine Negative (Negative); Specific Grav Ur 1.022 (1.001-1.035); Urobilinogen Urine 0.2 mg/dL (<2.0)
[2024-07-20 15:41] LABS: INR 0.9; Partial Thromboplastin Time 28.2 Seconds (22.3-36.8); Prothrombin Time 12.7 Seconds (11.1-14.7)
[2024-07-20 15:45] LABS: Albumin Level 4.4 g/dL (3.5-5.1); Anion Gap 6 mmol/L (4-12); Blood Urea Nitrogen 13 mg/dL (7-17); Calcium 9.4 mg/dL (8.4-10.2); Carbon Dioxide 31 mmol/L (22-30); Chloride 102 mmol/L (98-107); Estimated Glomerular Filt Rate > 60; Glucose 83 mg/dL (65-110); Potassium 3.8 mmol/L (3.4-5.0); Sodium 139 mmol/L (137-145)
[2024-07-20 15:48] LABS: Urine Cotinine NEGATIVE
[2024-07-20 16:49] LABS: MRSA (PCR) NOT DETECTED (NOT DETECTE)
== END 2024-07-20 13:50 | disposition home or self-care (01) ==
LOC: ANHSURGERY 13:55
PROVIDERS: PCP Family Medicine; Visit Provider Orthopaedic Surgery
DX: Z01.812 Encounter for preprocedural laboratory examination (principal); M17.12 Unilateral primary osteoarthritis, left knee
CPT/HCPCS: 80048; 80307; 81003; 82040; 83036; 85025; 85610; 85730; 87641

== ENCOUNTER 2024-08-04 00:36 | Day surgery (SDC) | payer OTHER, SELFPAY ==
--- NOTE | 2024-07-20 14:10 | PC.NURSE ---
Report to the Outpatient Waiting Room, entrance under the green pavilion located off [facility], at time __06:00am on date ___07/30____. Planned Procedure Time: .? Time changes happen often and if your time is changed the preop area will call you the afternoon before. - You and your visitor will be asked to self-screen and do not enter if you have any COVID symptoms. Please call surgeon if you need to reschedule. - A mask is optional within the hospital at this time. Patients may have clear liquids (water, carbonated beverages, clear teas, apple juice) until 3 hours prior to surgery with a maximum of 20 ounces. - No food from midnight until time of surgery and no smoking - Infants may have breast milk until 4 hours before surgery, formula 6 hours prior to surgery. - Children will be allowed to drink immediately following surgery.? If applicable, please bring a bottle or sippy cup to assist with drinking. Juice, water, soda, and popsicles are readily available.? For infants on formula, please bring formula the day of surgery.? Pacifiers are allowed. Take only the following medications with a SIP of water on the morning of surgery: None DO NOT STOP ANY OF YOUR OTHER PRESCRIPTION MEDICATIONS PRIOR TO SURGERY EXCEPT THE FOLLOWING Medications to discontinue per physician __Semaglutide for 10 days, per Dr Enamorado Date to take last dose____07/25/24 Hold Diclofenac 7 days prior to surgery per Dr Enamorado, date to take last dose is 07/27/24 . Hold all Vitamins and supplements for 3 days prior per Anesthesia, date to take last dose is 07/31/24 Please no make-up, nail algerian, hairspray, perfume, deodorant, or body powder the day of surgery.? No jewelry (including any body piercings) or valuables the day of surgery, leave them at home.? Please take a shower or bath the night before, or the morning of, surgery with an antibacterial soap.? Wear comfortable, loose fitting clothing.? Children are encouraged to wear pajamas. - Jewelry must be removed prior to entering the operating room.? Rings and piercings that are not removed may be cut off. - The hospital will not accept responsibility for valuables.? - Please leave all valuables, including medications, at home the day of surgery. If you are going home after surgery, a licensed otr tanker truck driver must drive you home.? - NO public transportation without another adult if you receive anesthesia. - We recommend that an adult stay with you for 24 hours following discharge. - We also recommend that you do not drive, make important decision, drink alcoholic beverages, or take any drugs that were not prescribed by your health care provider for at least 24 hours after your discharge time. For Pediatric surgeries, we recommend two adults accompany the child home. Follow any additional instructions given to you from your surgeon. Telephone instructions given to and asked if any additional questions and then verbalized understanding. Patient advised to call surgeon office or pre surgery nurse liaison [phone] if any additional questions.
[2024-07-20 14:23] VITALS: BP 103/74; PULSE 79; TEMP 36.4; O2SAT 95; BMI 28.5
--- NOTE | 2024-07-20 14:42 | PC.NURSE ---
Addendum entered by Ivy Philip RN 07/20/24 14:51: Ok for pt to take her am Lamotrigine that am, pt aware per her request. Original Note: Report to the Outpatient Waiting Room, entrance under the green pavilion located off [facility], at time __06:00am__ on date __08/04/24 . Planned Procedure Time: __07:30am .? Time changes happen often and if your time is changed the preop area will call you the afternoon before. - You and your visitor will be asked to self-screen and do not enter if you have any COVID symptoms. Please call surgeon if you need to reschedule. - A mask is optional within the hospital at this time. Patients may have clear liquids (water, carbonated beverages, clear teas, apple juice) until 3 hours prior to surgery with a maximum of 20 ounces. - No food from midnight until time of surgery and no smoking (0530) Take only the following medications with a SIP of water on the morning of surgery: __None DO NOT STOP ANY OF YOUR OTHER PRESCRIPTION MEDICATIONS PRIOR TO SURGERY EXCEPT THE FOLLOWING Medications to discontinue per physician ____Hold Diclofenac for [address] Enamorado, date of last dose 07/27/24 Hold Semiglutide for 10 days prior to surgery per Dr. Enamorado. Date to take last dose___07/25/24 Pt to check on the Estradol instructions per Dr Enamorado. Hold all vitamins and supplements for 3 days prior to surgery per Anesthesia. date to take last dose is 07/31/24. Please no make-up, nail vincentian, hairspray, perfume, deodorant, or body powder the day of surgery.? No jewelry (including any body piercings) or valuables the day of surgery, leave them at home.? Please take a shower or bath the night before, or the morning of, surgery with an antibacterial soap.? Wear comfortable, loose fitting clothing.? Children are encouraged to wear pajamas. - Jewelry must be removed prior to entering the operating room.? Rings and piercings that are not removed may be cut off. - The hospital will not accept responsibility for valuables.? - Please leave all valuables, including medications, at home the day of surgery. If you are going home after surgery, a licensed local intermodal truck driver must drive you home.? - NO public transportation without another adult if you receive anesthesia. - We recommend that an adult stay with you for 24 hours following discharge. - We also recommend that you do not drive, make important decision, drink alcoholic beverages, or take any drugs that were not prescribed by your health care provider for at least 24 hours after your discharge time. Follow any additional instructions given to you from your surgeon. Telephone instructions given to ___patient and asked if any additional questions and then verbalized understanding. Patient advised to call surgeon office or pre surgery nurse liaison [phone] if any additional questions.
[2024-08-04] VITALS (12 sets, daily range): BP systolic 94–120; BP diastolic 59–79; PULSE 72–93; RESP 10–18; TEMP 35.5–36.6; O2SAT 93–100
--- NOTE | ~2024-08-04 | XR_ITS ---
[id number] Ordering provider: Ron Enamorado MD History: . POST-OP, LEFT TKA . Comparison: None. FINDINGS: BONES: No acute fracture or dislocation. JOINT SPACES: Total knee arthroplasty. SOFT TISSUES: Postoperative changes in the subcutaneous tissues. IMPRESSION: No acute osseous abnormality left knee. Total knee arthroplasty. Reviewed, dictated and finalized at location A. RNET SALESPERSON
[2024-08-04] MEDS: ACETAMINOPHEN 500 MG TABLET 1000 MG PO (06:23)
[2024-08-04] MEDS: LACTATED RINGERS 1,000 ML 30 ML IV CONT (06:37)
[2024-08-04] MEDS: TRANEXAMIC ACID 1,000MG/ISO100 1,000 MG/100 ML BAG 200 MG IVPB (07:10)
--- NOTE | 2024-08-04 07:22 | P.PNAN_ITS ---
Anes - Initial Pre Proc Eval Procedure: Operation Date: 08/04/24 07:30 Proposed Procedures p Left Total Knee Arthroplasty - Ron Enamorado MD Date/Time: 08/04/24 07:22 Surgeon: Ron Enamorado MD Pre Op Diagnosis: left knee DJD Patient Data Age: 58 Gender: F Height: 1.68 m Weight: 78.1 kg Last Vital Signs Temp 97.3 F L 08/04/24 07:03 Pulse 77 08/04/24 07:03 Resp 16 08/04/24 07:03 BP 113/79 08/04/24 07:03 Pulse Ox 99 08/04/24 07:03 O2 Del Method Room Air 08/04/24 07:03 Allergies Allergy/AdvReac Type Severity Reaction Status Date / Time nitrofurantoin Allergy Severe Rash Verified 07/19/24 10:04 [From Macrobid] cinnamon Allergy Mild Blister Verified 07/19/24 10:04 codeine Allergy Unknown vaginal Verified 07/19/24 10:04 itching Penicillins Allergy Unknown Itching Verified 07/19/24 10:04 ciprofloxacin AdvReac Unknown joint pain Verified 07/19/24 10:04 Home Medications Medication Instructions Recorded Confirmed Type vibegron 75 mg tablet (Gemtesa) 75 mg PO DAILY 05/07/22 08/04/24 History lamotrigine 200 mg tablet 200 mg PO .COMPLEX 09/06/22 08/04/24 History estradiol 0.01% (0.1 mg/gram) 1 appful vaginal DAILY 02/18/23 08/04/24 History vaginal cream cholecalciferol (vitamin D3) 25 25 mcg PO DAILY 12/02/23 08/04/24 History mcg (1,000 unit) capsule olluhmwz-lgketuq-yoqf-lutein tablet 1 tablet PO DAILY 12/02/23 08/04/24 History omeprazole 20 mg capsule,delayed See Rx Instructions .Route 12/29/23 08/04/24 Rx release .COMPLEX #60 caps diclofenac sodium 1 % topical gel 2 g topical QID #300 grams 12/30/23 07/20/24 Rx clonazepam 1 mg tablet 1 mg PO DAILY 03/04/24 08/04/24 History famotidine 20 mg tablet (Pepcid) 20 mg PO QHS 1 month #30 tabs 03/12/24 08/04/24 Rx chlorhexidine gluconate 4 % 1 applic topical ONCE #237 mL 07/23/24 08/04/24 Rx topical liquid (Hibiclens) linaclotide 290 mcg capsule 290 mcg PO DAILY 3 months #90 caps 07/30/24 08/04/24 Rx (Linzess) Patient hx anesthesia problems: none Family hx anesthesia problems: none Results Review: All pre-operative results and documents have been reviewed as part of the pre- operative evaluation. [facility] Past Medical History Medical History (Updated 08/04/24 @ 07:24 by Kin Chilel Jr., CRNA) Anxiety Broken toe Chronic pain MILIAN (dyspnea on exertion) Dysphagia Gastroesophageal reflux disease H/O irritable bowel syndrome History of vaginal delivery x1 Hx of cyst of breast 1989 Surgical History Surgical History History of bladder suspension procedure History of bunionectomy of left great toe 2016, 2018 History of hysterectomy 2000 History of left knee replacement 2003 History of right knee joint replacement 1979 Hx of cholecystectomy mid 1993 Hx of hysterectomy 2000 Hx of ovarian cystectomy 1987 & 1992 Hx of tonsillectomy early 1090s Hx of tubal ligation 1994 Family History Family History Father Cancer of kidney Mother Cancer of kidney Hypertension Heart problem Daughter Anxiety Grandparent Diabetes mellitus Grandparent Alcoholism Unknown Depression High cholesterol Social History Social History Smoking status: Never smoker Second hand tobacco smoke exposure: Yes Additional smoking assessment comments: Denies any nicotine in system Alcohol intake: never Substance use: never Substance use type: marijuana Last use: 11/2019 Do You Feel Safe in your Home?: Yes Lack of Transportation: No Lack of Food: Never True Current Housing: I Have Housing Concerned About Future Housing: No Difficulty Paying Gas/Electric Bills: No Difficulty Paying for Meds: YES Currently Unemployed: YES Education: Master's Degree or Higher Difficulty w/ Childcare or Family Care: No Living arrangements: with family Additional living arrangements comments: Occupation/Education: retired Gender identity (if verbalized by the patient): Female Spiritual care concerns: No Comments SINUS RHYTHM POSSIBLE LEFT ATRIAL ENLARGEMENT [-0.1mV P WAVE IN V1/V2] MARKED LEFT AXIS DEVIATION [QRS AXIS < -30] LOW QRS VOLTAGE IN PRECORDIAL LEADS [QRS DEFLECTION < 1.0 mV IN CHEST LEADS] POSSIBLE INFERIOR MYOCARDIAL INFARCTION , OF INDETERMINATE AGE [30 ms Q WAVE IN II/aVF] MODERATE T-WAVE ABNORMALITY, CONSIDER ANTEROLATERAL ISCHEMIA [-0.1+ mV T WAVE IN V3-V6] ABNORMAL ECG Anes - Eval Final PreProcedure Day of Procedure 08/04/24 07:22 Patient weight: normal Heart: regular rate and rhythm Lungs: clear to auscultation Airway: Mallampati scale class II Neurological: alert and oriented Last oral intake: >/= 8 hours ASA classification: II Emergent: no Anesthetic plan: proceed Anesthesia type and monitoring: general LMA and standard monitoring Results Review: All pre-operative results and documents have been reviewed as part of the pre- operative evaluation. Informed Consent: The patient's anesthetic plan and its attendant risks and benefits were discussed with the patient/family/POA. Questions were solicited and answers provided to the satisfaction of the patient/family/POA.
--- NOTE | 2024-08-04 07:37 | WPDHPUPDATE1 ---
History and Physical Update Update Date/Time: 08/04/24 07:37 History and Physical has been reviewed, including an updated exam of the patient. There are NO changes in the patient's condition. Risks, benefits, and alternatives have been discussed and questions answered. Patient agrees to proceed with procedure.
[2024-08-04] MEDS: ceFAZolin 2 GM/D5W 50 ML 2 GM/50 ML BAG IVPB ×3 (07:41→23:30)
[2024-08-04] MEDS: SODIUM CHLORIDE 0.9% IV 37.7 ML, MORPHINE SULFATE INJ (*CRX) 2 MG, ROPivacaine HCL 1% 2... INFILTRATE (08:36)
[2024-08-04] MEDS: TRANEXAMIC ACID 1,000 MG/10 ML AMPUL 1000 MG IV PUSH (09:13)
--- NOTE | 2024-08-04 09:52 | PM.DS ---
DS: Summary Time Spent with Patient Time attestation: Total time spent providing and/or coordinating discharge services: DS: Data Data Completed and Pending Labs on day of discharge: Labs from last 24 hours 08/04/24 06:26 Blood Type O Negative Antibody Screen Negative Discharge Plan Discharge Patient Disposition: Home, Self-Care Stand Alone Forms: General Discharge Instructions Discharge Medications: No Action lamotrigine 200 mg tablet 200 mg PO .COMPLEX Rx Instructions: 200 mg orally 1 QAM and 2 QHS; one in the morning and two at night. equals to 600 mg daily estradiol 0.01 % (0.1 mg/gram) cream 1 appful vaginal DAILY clonazepam 1 mg tablet 1 mg PO DAILY Gemtesa 75 mg tablet 75 mg PO DAILY valrstmz-yrwhxcm-tecu-lutein Tablet 1 tablet PO DAILY cholecalciferol (vitamin D3) 25 mcg (1,000 unit) capsule 25 mcg PO DAILY omeprazole 20 mg capsule,delayed release(DR/EC) See Rx Instructions .ROUTE .COMPLEX Qty: 60 11RF Dose Instruction: TAKE 1 CAPSULE BY MOUTH TWICE DAILY Rx Instructions: TAKE 1 CAPSULE BY MOUTH TWICE DAILY diclofenac sodium 1 % gel 2 g topical QID Qty: 300 6RF Rx Instructions: apply to single elbow, wrist or hand; for hand includes palm/fingers/back of hand famotidine [Pepcid] 20 mg tablet 20 mg PO QHS 30 Days Qty: 30 5RF chlorhexidine gluconate [Hibiclens] 4 % liquid 1 applic topical ONCE Qty: 237 0RF Rx Instructions: as a single dose Linzess 290 mcg capsule 290 mcg PO DAILY 90 Days Qty: 90 3RF
--- NOTE | 2024-08-04 09:53 | W.PM.PROC2 ---
Procedure Note - Detailed Date of Procedure 08/04/24 Pre-op Diagnosis left knee DJD Post-op Diagnosis Same Procedure Performed L TKA Surgeon Ron Enamorado MD Anesthesia General Description of Procedure THE LEFT KNEE WAS PREPPED AND DRAPED IN THE STERILE FASHION. A MIDLINE SKIN INCISION WAS MADE. A MEDIAL PARAPATELLAR ARTHROTOMY WAS MADE. THE PATELLA WAS EVERTED. THERE WAS TRICOMPARTMENT DJD. THERE WAS MINIMAL PATELLA DJD. AN INTRAMEDULLARY JUSTIN WAS PLACED IN THE FEMUR. A DISTAL FEMORAL CUT WAS MADE IN 5 DEGREES OF VALGUS REMOVING APPROXIMATELY 9 MM OF BONE FROM THE DISTAL FEMUR. THE FEMUR WAS SIZED TO 65. A 65 FEMORAL CUTTING BLOCK WAS PLACED IN 3 DEGREES OF EXTERNAL ROTATION AND IN ALIGNMENT WITH ASHLEY'S LINE AND THE TRANSEPICONDYLAR AXIS. ANTERIOR POSTERIOR AND CHAMFER CUTS WERE MADE. THE CUTS WERE EXCELLENT. NEXT AN INTRAMEDULLARY CUTTING GUIDE WAS PLACED IN THE TIBIA. A TRANS TIBIAL CUT WAS MADE ALONG THE LONG AXIS OF THE TIBIA. APPROXIMATELY 10 MM OF BONE WAS REMOVED FROM THE HIGH SIDE OF THE TIBIA. THE TIBIA WAS THEN PLANED TO A SMOOTH SURFACE. POSTERIOR FEMORAL OSTEOPHYTES WERE REMOVED FROM THE FEMORAL CONDYLES. A 75 TIBIAL TRIAL WAS PLACED IN ALIGNMENT WITH THE 1/3 MEDIAL ASPECT OF THE TIBIAL TUBERCLE. THEN A 65 FEMORAL TRIAL COMPONENT WAS PLACED. BOTH HAD EXCELLENT FITS. EVENTUALLY A 10 MM POLYETHYLENE TRIAL COMPONENT WAS PLACED. THE KNEE WAS TAKEN THROUGH A RANGE OF MOTION. THE KNEE CAME OUT TO FULL EXTENSION. THERE WAS NO ABNORMAL TILT TO THE PATELLA. THERE WAS GOOD A/P AND VARUS/VALGUS STABILITY. THERE WAS NO EXCESSIVE ROLL BACK WITH FLEXION. THE TRIAL COMPONENTS WERE REMOVED. THEN A 65 FEMORAL COMPONENT AND 75 TIBIAL COMPONENT WITH A 10 POLYETHYLENE COMPONENT WERE CEMENTED INTO PLACE. ONCE THE CEMENT WAS HARD THE KNEE WAS TAKEN THROUGH A ROM AGAIN AND FOUND TO BE STABLE WITH NO PATELLA TILT NO EXCESSIVE ROLL BACK WITH FLEXION AND GOOD STABILITY WITH COMPLETE AND FULL EXTENSION. THE KNEE WAS IRRIGATED WITH STERILE BETADINE AND WATER FOR ABOUT 3 MINUTES. THE BLEEDERS WERE CAUTERIZED. THE ARTHROTOMY WAS REPAIRED WITH NUMBER 1 VICRYL. THE SUB CUTANEOUS LAYER WITH 2-0 VICRYL AND THE SKIN WITH STRATAFIX THEN DERMABOND. THE WOUND WAS WASHED AND A STERILE DRESSING WAS APPLIED. PATIENT WAS EXTUBATED. Estimated Blood Loss 100 Pathology None sent Complications No immediate complications Condition Stable Disposition PACU
--- NOTE | 2024-08-04 11:09 | ADMGEN ---
This patient, Kayla Castañeda, was admitted to 3 [facility] Surg Room 309-01. Patient/family oriented to hospital policies and general routines including ID bracelet, bed and alarms, visiting hours, pain management, procedures, bathroom and other care routines, personal items, smoking policy, room service/diet, and visiting hours. Information on how to activate the Rapid Response Team has been discussed. Patient/Family are encouraged to report perceived risks to care and to ask questions if they do not understand what they are told or what they should do.
[2024-08-04] MEDS: CHOLECALCIFEROL 1,000 UNITS TABLET 1000 UNITS PO (12:07)
[2024-08-04] MEDS: SENNA/DOCUSATE SODIUM TABLET 2 TAB PO ×2 (12:07→17:21)
[2024-08-04] MEDS: SODIUM CHLORIDE 0.9% IV 1,000 ML 125 ML IV CONT (12:07)
[2024-08-04] MEDS: clonazePAM (*CRX) 0.5 MG TABLET 1 MG PO (12:07)
[2024-08-04] MEDS: lamoTRIgine 100 MG TABLET 200 MG PO (12:08)
[2024-08-04] MEDS: KETOROLAC 15 MG/ML VIAL (*BKC) IV PUSH ×3 (12:08→23:30)
[2024-08-04] MEDS: polyethylene glycoL 3350 17 GM POWD.PACK PO (12:09)
--- NOTE | 2024-08-04 13:12 | PHAR ---
HOME MED* GEMTESA 75 MG TAB; TAKE 1 BY MOUTH AT BEDTIME. VERIFIED BY PHARMACY.
[2024-08-04] MEDS: FAMOTIDINE 10 MG TABLET PO ×2 (14:28→20:34)
[2024-08-04] MEDS: VIBEGRON 75 MG 75 EACH PO (20:34)
[2024-08-05 00:42] VITALS: BP 93/60; PULSE 65; RESP 20; TEMP 36.7; O2SAT 98
[2024-08-05 04:35] VITALS: BP 103/60; PULSE 79; RESP 18; TEMP 36.8; O2SAT 97
[2024-08-05] MEDS: KETOROLAC 15 MG/ML VIAL (*BKC) IV PUSH ×2 (05:11→11:07)
[2024-08-05] MEDS: LINACLOTIDE 145 MCG CAPSULE 290 MCG PO (05:30)
[2024-08-05 06:44] LABS: Basophils Percent Auto 0.4 % (0.2-1.2); Eosinophils Percent Auto 0.4 % (0-4.4); Hematocrit 33.7 % (37.0-47.0); Hemoglobin 10.5 g/dL (12.0-15.0); Immature Granulocyte Absolute 0.04 K/mm3 (0.00-0.031); Immature Granulocyte Percent A 0.4 % (0-0.5); Lymphocytes Absolute Auto 2.47 K/mm3 (0.9-3.2); Lymphocytes Percent Auto 23.3 % (18.3-44.2); Mean Corpuscular HGB Conc 31.2 g/dl (32-36); Mean Corpuscular Hemoglobin 30.3 pg (26-34); Mean Corpuscular Volume 97.1 fl (80-100); Mean Platelet Volume 10.4 fl (7.4-10.4); Monocytes Absolute Auto 0.7 K/mm3 (0.1-0.6); Monocytes Percent Auto 6.3 % (2.6-8.5); Neutrophils Absolute Auto 7.4 K/mm3 (1.3-6.7); Neutrophils Percent Auto 69.2 % (45.5-73.1); Platelet Count Result 250 k/mm3 (150-375); Red Blood Count 3.47 M/mm3 (4.2-5.4); Red Cell Distribution Width 13.2 % (11.5-14.5); White Blood Count 10.6 K/mm3 (4.5-10.0)
[2024-08-05 07:08] LABS: Anion Gap 5 mmol/L (4-12); Blood Urea Nitrogen 13 mg/dL (7-17); Calcium 8.7 mg/dL (8.4-10.2); Carbon Dioxide 31 mmol/L (22-30); Chloride 103 mmol/L (98-107); Estimated CRCL calculation 69 ml/min; Estimated Glomerular Filt Rate > 60; Glucose 91 mg/dL (65-110); Potassium 3.4 mmol/L (3.4-5.0); Sodium 139 mmol/L (137-145)
[2024-08-05 08:00] VITALS: PULSE 74; O2SAT 96
[2024-08-05] MEDS: ceFAZolin 2 GM/D5W 50 ML 2 GM/50 ML BAG IVPB (08:12)
[2024-08-05 08:35] VITALS: BP 99/66; PULSE 74; RESP 20; TEMP 36.1; O2SAT 96
[2024-08-05] MEDS: ASPIRIN 325 MG ENTERIC TABLET PO (08:45)
[2024-08-05] MEDS: CHOLECALCIFEROL 1,000 UNITS TABLET 1000 UNITS PO (08:46)
[2024-08-05] MEDS: FAMOTIDINE 10 MG TABLET PO (08:46)
[2024-08-05] MEDS: clonazePAM (*CRX) 0.5 MG TABLET 1 MG PO (08:46)
[2024-08-05] MEDS: lamoTRIgine 100 MG TABLET 200 MG PO (08:46)
[2024-08-05] MEDS: oxyCODONE/ACETAMINOPHEN (*CRX) 5-325 MG TABLET 1 TABLET PO (08:51)
--- NOTE | 2024-08-05 10:21 | WPDANESPN ---
Anes - Prog Note Post-Op Date/Time: 08/05/24 10:21 Cardiovascular status: normal Respiratory status: normal Airway patency: baseline Mental status: baseline Post-Op hydration status: normal Vital Signs: Last Vital Signs Temp 36.1 C L 08/05/24 08:35 Pulse 74 08/05/24 08:35 Resp 20 08/05/24 08:35 BP 99/66 L 08/05/24 08:35 Pulse Ox 96 08/05/24 08:35 O2 Del Method Room Air 08/04/24 21:40 O2 Flow Rate 8 08/04/24 10:10 Pain Score (VAS): 02/05, patient up with physical therapist I/O: Intake & Output 08/04/24 08/05/24 08/05/24 23:59 07:59 15:59 Intake Total 1290 50 Balance 1290 50 Laboratory Tests 08/05/24 06:03 08/05/24 06:03 08/05/24 06:03 WBC 10.6 H RBC 3.47 L Hgb 10.5 L Hct 33.7 L MCV 97.1 MCH 30.3 MCHC 31.2 L RDW 13.2 Plt Count 250 MPV 10.4 Immature Gran % (Auto) 0.4 Neut % (Auto) 69.2 Lymph % (Auto) 23.3 [place] % (Auto) 6.3 Eos % (Auto) 0.4 Baso % (Auto) 0.4 Lymph # (Auto) 2.47 [place] # (Auto) 0.7 H Eos # (Auto) 0.0 Baso # (Auto) 0.0 Abs Immat Gran (auto) 0.04 H Absolute Neuts (auto) 7.4 H Absolute Nucleated RBC 0.000 Nucleated RBC % 0.0 Sodium 139 Potassium 3.4 Chloride 103 Carbon Dioxide 31 H Anion Gap 5 BUN 13 Creatinine 0.80 Estim Creat Clear Calc 69 Estimated GFR > 60 Glucose 91 Calcium 8.7 Post-procedural complaints: none Patient Feedback: Patient satisfied with anesthetic care.
[2024-08-05] MEDS: IBUPROFEN IV 800 MG/200 ML 800 MG/200 ML BAG 400 MG IVPB (10:38)
[2024-08-05 12:35] VITALS: BP 95/62; PULSE 70; RESP 18; TEMP 35.6; O2SAT 98
--- NOTE | 2024-08-05 14:04 | P.PNOP_ITS ---
Progress Note: A&P Assessment and Plan (1) S/P total knee arthroplasty: Qualifiers: Laterality: left Qualified Code(s): Z96.652 - Presence of left artificial knee joint Code(s): Z96.659 - Presence of unspecified artificial knee joint Status: Acute Assessment and Plan: POD #1: Left TKA Continue PT/OT. WBAT. Walker. HIGH FALL RISK. Continue pain control. Ice Knee. Protect skin. DVT prophylaxis with Aspirin. SCDs. Incentive Spirometry Use reviewed. Monitor Dressing. Change prior to discharge. Bowel Regimen. Dispo: Home with Home Health pending progress with PT/OT Plan Reviewed history, exam, radiographs and current labs with attending MD and covering surgeon, Dr. Enamorado, who agrees with current plan as indicated above. No further recommendations from Dr. Enamorado at this time. Subjective Subjective Date/Time Seen: 08/05/24 14:04 Post Op day: 1 Principal diagnosis: Left Knee DJD Interval history: POD #1: Left TKA Patient doing well. Pain well controlled. No new concerns. Ready for d/c today. Review of Systems Review of Systems: All systems reviewed & are unremarkable except as noted in HPI and below Constitutional: Constitutional: Denies fever(s) and Denies headache(s) ENT: Denies headache(s) Cardiovascular: Cardiovascular: Denies chest pain, Denies diaphoresis, Reports lightheadedness, Denies palpitations and Denies dyspnea Respiratory: Respiratory: Denies dyspnea Gastrointestinal: Gastrointestinal: Denies abdominal pain, Denies constipation, Denies nausea and Denies vomiting Genitourinary: Genitourinary: Reports nocturia and Denies dysuria Musculoskeletal: Musculoskeletal: Reports arthralgias (Left Knee ), Reports joint swelling (Left Knee ) and Reports limited range of motion (ROM limited due to recent surgical intervention LEFT Knee ) Neurologic: Denies headache(s) Endocrine: Endocrine: Denies palpitations Exam Const: General: comfortable and no acute distress Resp: Effort & Inspection: normal respiratory effort Cardio: Rate: regular rate Rhythm: regular rhythm GI: GI Palp: Yes Soft to palpation, No Tenderness to palpation present (GI) and No Guarding due to palpation present (GI) Skin: General skin exam: wounds noted (see extremity assessment ) Wounds: wounds noted (see extremity assessment ) Neuro: Cognition (Neuro): normal cognition Other: NV intact aside from block. Moves toes. Sensation intact to light touch. +ankle dorsiflexion/plantarflexion. Extrem: Left lower extremity: normal to inspection, normal capillary refill, knee Details: tenderness (diffuse ) Location: of the patella, swelling (moderate consistent to recent surgery ), abnormal ROM (limited due to recent surgery ) Details: pain with active ROM and pain with passive ROM and ecchymosis (as expected with recent surgery. NO hematoma. ), lower leg (Negative Otilia's Sign ), ankle (+ankle dorsiflexion/plantarflexion ) Details: normal to inspection, no edema and normal ROM; no tenderness and no swelling and foot Details: normal capillary refill, toes with normal ROM, vascular exam Details: dorsalis pedis pulse present and motor-sensory exam light-touch normal; no tenderness Other: Incision left TKA dressing c/d/i. No hematoma. No signs of infection. No wound dehiscence. Psych: Mental Status: mental status grossly normal Objective Data Vital Signs Vital Signs: Vital Signs - 24 hr 08/04/24 14:31 08/04/24 16:34 08/04/24 21:10 Temperature 36.2 C L 36.6 C Pulse Rate 72 76 Respiratory Rate 17 16 Blood Pressure 95/61 L 94/63 L Pulse Oximetry 97 98 Oxygen Delivery Room Air 08/05/24 00:42 08/04/24 21:40 08/05/24 04:35 Temperature 36.7 C 36.8 C Pulse Rate 65 79 Respiratory Rate 20 18 Blood Pressure 93/60 L 103/60 Pulse Oximetry 98 98 97 Oxygen Delivery Room Air 08/05/24 08:35 08/05/24 08:00 08/05/24 12:35 Temperature 36.1 C L 35.6 C L Pulse Rate 74 74 70 Respiratory Rate 20 18 Blood Pressure 99/66 L 95/62 L Pulse Oximetry 96 96 98 Oxygen Delivery Room Air Intake/Output Intake/Output: Intake & Output 08/02/24 08/03/24 08/04/24 08/05/24 23:59 23:59 23:59 23:59 Intake Total 2230 970 Balance 2230 970 Meds/Results Medications: Active Medications Generic Name Dose Route Start Last Admin Trade Name Freq PRN Reason Stop Dose Admin Acetaminophen 500 mg 08/04/24 10:50 Acetaminophen 500 Mg Tablet PO Q6H PRN Pain Rated 1-3 Aspirin 325 mg 08/05/24 09:00 08/05/24 08:45 Aspirin 325 Mg Enteric Tablet PO 325 mg Q12HR MAYNOR Administration Clonazepam 1 mg 08/04/24 10:50 08/05/24 08:46 Clonazepam (*Crx) 0.5 Mg Tablet PO 1 mg DAILY MAYNOR Administration Diazepam 5 mg 08/04/24 10:50 Diazepam (*Crx) 5 Mg Tablet PO Q8H PRN Spasms Diphenhydramine HCl 25 mg 08/04/24 10:50 Diphenhydramine Hcl Inj 50 Mg/Ml Vial IV PUSH Q6H PRN Itching Famotidine 10 mg 08/04/24 09:00 08/05/24 08:46 Famotidine 10 Mg Tablet PO 10 mg Q12HR MAYNOR Administration Hydromorphone HCl 1 mg 08/04/24 10:50 Hydromorphone Hcl Inj (*Crx) 1 Mg/Ml Syr IV PUSH Q2H PRN Breakthrough Pain Rated 7-10 or NPO Hydromorphone HCl 0.5 mg 08/04/24 10:50 Hydromorphone Hcl Inj (*Crx) 1 Mg/Ml Syr IV PUSH Q2H PRN Breakthrough Pain Rated 4-6 or NPO Ibuprofen 800 mg in 200 mls @ 400 mls/hr 08/04/24 10:50 08/05/24 12:17 Caldolor 800 Mg/200 Ml IVPB Infused Q6H PRN Infusion Breakthrough Pain Rated 1-3 or NPO Lamotrigine 200 mg 08/04/24 12:00 08/05/24 08:46 Lamotrigine 100 Mg Tablet PO 200 mg DAILY MAYNOR Administration Linaclotide 290 mcg 08/05/24 06:30 08/05/24 05:30 Linaclotide 145 Mcg Capsule PO 145 mcg DAILY@0630 MAYNOR Administration Naloxone HCl 0.1 mg 08/04/24 10:50 Naloxone Hcl 0.4 Mg/Ml Vial IV PUSH Q2M PRN Opiate Reversal *Home Med* Vibegron 75 mg 08/04/24 21:00 08/04/24 20:34 [Gemtesa] 75 Mg PO 09/03/24 20:59 75 mg Tablet HS MAYNOR Administration Ondansetron HCl 4 mg 08/04/24 10:50 Ondansetron Inj 4 Mg/2 Ml Vial IV PUSH Q4H PRN Nausea And Vomiting Oxycodone/Acetaminophen 1 tablet 08/04/24 10:50 08/05/24 08:51 Oxycodone/Acetaminophen (*Crx) 5-325 Mg Tablet PO 1 tablet Q4H PRN Administration Pain Rated 4-6 Oxycodone/Acetaminophen 1 tab 08/04/24 10:50 Oxycodone/Acetaminophen (*Crx) 10-325 Mg Tablet PO Q6H PRN Pain Rated 7-10 Polyethylene Glycol 17 gm 08/04/24 10:50 08/05/24 08:46 Polyethylene Glycol 3350 17 Gm Powd.Pack PO Not Given QAM [facility] Senna/Docusate Sodium 2 tab 08/04/24 10:50 08/05/24 08:46 Senna/Docusate Sodium Tablet PO Not Given BID [facility] Vitamin D 1,000 units 08/04/24 12:00 08/05/24 08:46 Cholecalciferol 1,000 Units Tablet PO 1,000 units DAILY MAYNOR Administration Radiology Results: ITS Impressions Knee X-Ray 08/04/24 10:27 IMPRESSION: No acute osseous abnormality left knee. Total knee arthroplasty. Labs Labs: Laboratory Results - last 24 hr 08/05/24 06:03 WBC 10.6 H RBC 3.47 L Hgb 10.5 L Hct 33.7 L MCV 97.1 MCH 30.3 MCHC 31.2 L RDW 13.2 Plt Count 250 MPV 10.4 Immature Gran % (Auto) 0.4 Neut % (Auto) 69.2 Lymph % (Auto) 23.3 [place] % (Auto) 6.3 Eos % (Auto) 0.4 Baso % (Auto) 0.4 Lymph # (Auto) 2.47 [place] # (Auto) 0.7 H Eos # (Auto) 0.0 Baso # (Auto) 0.0 Abs Immat Gran (auto) 0.04 H Absolute Neuts (auto) 7.4 H Absolute Nucleated RBC 0.000 Nucleated RBC % 0.0 Sodium 139 Potassium 3.4 Chloride 103 Carbon Dioxide 31 H Anion Gap 5 BUN 13 Creatinine 0.80 Estim Creat Clear Calc 69 Estimated GFR > 60 Glucose 91 Calcium 8.7 Quality VTE Prophylaxis VTE prophylaxis: pharmacologic ordered
--- NOTE | 2024-08-05 14:08 | P.DS_ITS ---
DS: Admitting Diagnosis Discharge Date 08/05/2024 Admitting Diagnosis Left Knee DJD DS: Discharge Diagnosis Discharge Diagnosis (1) S/P total knee arthroplasty: Qualifiers: Laterality: left Qualified Code(s): Z96.652 - Presence of left artificial knee joint Code(s): Z96.659 - Presence of unspecified artificial knee joint Status: Acute Assessment and Plan: POD #1: Left TKA Continue PT/OT. WBAT. Walker. HIGH FALL RISK. Continue pain control. Ice Knee. Protect skin. DVT prophylaxis with Aspirin. SCDs. Incentive Spirometry Use reviewed. Monitor Dressing. Change prior to discharge. Bowel Regimen. Dispo: Home with Home Health pending progress with PT/OT Plan Reviewed history, exam, radiographs and current labs with attending MD and covering surgeon, Dr. Enamorado, who agrees with current plan as indicated above. No further recommendations from Dr. Enamorado at this time. DS: Summary Hospital Course Reason for hospitalization: Left TKA Hospital Course: 58 year old female admitted s/p Left TKA for postoperative medical management, pain control and mobilization with PT/OT. Patient progressed well with PT/OT. Pain and vitals remained stable throughout. The patient has been cleared to be discharged home with home health at this time. All discharge care instructions reviewed at depth. New medications reviewed. Follow up planned for 3 weeks in the outpatient orthopedic clinic with Dr. Enamorado. Dr. Enamorado in agreement with safe discharge at this time. Status at Discharge Functional status at discharge: uses cane/walker Overall status at discharge: patient is progressing back to baseline Time Spent with Patient Time attestation: Total time spent providing and/or coordinating discharge services: Exam Const: General: comfortable and no acute distress Resp: Effort & Inspection: normal respiratory effort Cardio: Rate: regular rate Rhythm: regular rhythm Skin: General skin exam: wounds noted (see extremity assessment ) Wounds: wounds noted (see extremity assessment ) Neuro: Cognition (Neuro): normal cognition Other: NV intact aside from block. Moves toes. Sensation intact to light touch. +ankle dorsiflexion/plantarflexion. Extrem: Left lower extremity: normal to inspection, normal capillary refill, knee Details: tenderness (diffuse ) Location: of the patella, swelling (moderate consistent to recent surgery ), abnormal ROM (limited due to recent surgery ) Details: pain with active ROM and pain with passive ROM and ecchymosis (as expected with recent surgery. NO hematoma. ), lower leg (Negative Otilia's Sign ), ankle (+ankle dorsiflexion/plantarflexion ) Details: normal to inspection, no edema and normal ROM; no tenderness and no swelling and foot Details: normal capillary refill, toes with normal ROM, vascular exam Details: dorsalis pedis pulse present and motor-sensory exam light-touch normal; no tenderness Other: Incision left TKA dressing c/d/i. No hematoma. No signs of infection. No wound dehiscence. Psych: Mental Status: mental status grossly normal DS: Data Data Completed and Pending Labs on day of discharge: Labs from last 24 hours 08/05/24 06:03 WBC 10.6 H RBC 3.47 L Hgb 10.5 L Hct 33.7 L MCV 97.1 MCH 30.3 MCHC 31.2 L RDW 13.2 Plt Count 250 MPV 10.4 Immature Gran % (Auto) 0.4 Neut % (Auto) 69.2 Lymph % (Auto) 23.3 [place] % (Auto) 6.3 Eos % (Auto) 0.4 Baso % (Auto) 0.4 Lymph # (Auto) 2.47 [place] # (Auto) 0.7 H Eos # (Auto) 0.0 Baso # (Auto) 0.0 Abs Immat Gran (auto) 0.04 H Absolute Neuts (auto) 7.4 H Absolute Nucleated RBC 0.000 Nucleated RBC % 0.0 Sodium 139 Potassium 3.4 Chloride 103 Carbon Dioxide 31 H Anion Gap 5 BUN 13 Creatinine 0.80 Estim Creat Clear Calc 69 Estimated GFR > 60 Glucose 91 Calcium 8.7 Discharge Plan Discharge Patient Disposition: Home Health Service Discharge Instructions: Post Op Total Knee Replacement Instructions Dr. Ron Enamorado [phone] * Your dressing will be changed prior to your discharge. You will be sent home with one additional dressing to be changed on post op day 7 by the home health RN. Your galileo will be removed on the 14th day after surgery and steri- strips will be placed. Please practice good hand hygiene and do not touch your incision in order to prevent infection. * You may shower with your dressing but do not submerge in a bath tub. * Do not drive or operate machinery until you are released by Dr. Enamorado. * Do not walk without a walker for any reason until you are released by Dr. Enamorado. * Continue to use your ice machine. Please use a towel or pillow case to protect your skin before applying your ice machine. * Do NOT place a pillow under your knee. You may use a pillow from the calf down if needed. This will prevent a flexion contracture postoperatively. * CPM: You may begin use of your CPM machine at home if you have been given one pre-operatively. DO NOT USE WHILE YOU ARE SLEEPING. * ROMTech: If you were given a ROMTech Portable Connect System preoperatively, you are to begin use on the day you arrive home postoperatively. Our goal is for you to use the machine 5 times per day. The sessions are very short in the beginning and will progress as you progress. We are able to monitor your progress from afar as well as your pain and other reported symptoms. If you have difficulties with the machine, please call . NOTE: Please attempt to use the machine even when in pain as this will pest control worker helper your therapy with very gentle motion. * Your first post op appointment was sent to you via mail preoperatively. If you have any questions or are unable to make your appointment, please contact our office for scheduling questions. * Your medications have been sent to your pharmacy. You have been sent home with pain medication. Please picker operator an over the counter stool softener to prevent constipation due to narcotic use. Please keep this in mind during your postoperative recovery. If you are not experiencing regular bowel movements, please contact our office for further instruction. * Please contact our office with any questions/concerns regarding your knee at [phone]. Per Care Coordination: [facility] will contact you prior to their first visit. [facility] will follow for RN and PT/OT eval and treat. [facility] can be contacted at [phone]. Patient Instructions: Antibiotic Form Stand Alone Forms: General Discharge Information, General Discharge Instructions Follow-up/Referrals: Ron Enamorado MD [Physician] - Keep Reg. Scheduled Appt. Discharge Medications: New oxycodone-acetaminophen 5-325 mg Tablet 1 - 2 tablet PO Q4-6H PRN (Reason: pain) Qty: 56 0RF aspirin 325 mg Tablet,Delayed Release (Dr/Ec) 325 mg PO Q12HR 28 Days Qty: 56 0RF Continued lamotrigine 200 mg tablet 200 mg PO .COMPLEX Rx Instructions: 200 mg orally 1 QAM and 2 QHS; one in the morning and two at night. equals to 600 mg daily estradiol 0.01 % (0.1 mg/gram) cream 1 appful vaginal DAILY clonazepam 1 mg tablet 1 mg PO DAILY Gemtesa 75 mg tablet 75 mg PO DAILY ppcbclbf-vevpzle-hsxv-lutein Tablet 1 tablet PO DAILY cholecalciferol (vitamin D3) 25 mcg (1,000 unit) capsule 25 mcg PO DAILY omeprazole 20 mg capsule,delayed release(DR/EC) See Rx Instructions .ROUTE .COMPLEX Qty: 60 11RF Dose Instruction: TAKE 1 CAPSULE BY MOUTH TWICE DAILY Rx Instructions: TAKE 1 CAPSULE BY MOUTH TWICE DAILY diclofenac sodium 1 % gel 2 g topical QID Qty: 300 6RF Rx Instructions: apply to single elbow, wrist or hand; for hand includes palm/fingers/back of hand famotidine [Pepcid] 20 mg tablet 20 mg PO QHS 30 Days Qty: 30 5RF Linzess 290 mcg capsule 290 mcg PO DAILY 90 Days Qty: 90 3RF Discontinued chlorhexidine gluconate [Hibiclens] 4 % liquid 1 applic topical ONCE Qty: 237 0RF Rx Instructions: as a single dose Quality VTE Prophylaxis VTE prophylaxis: pharmacologic ordered
== END 2024-08-05 15:11 | disposition home health service (06) ==
LOC: ANHSURGERY 09:53 → ANH3MEDSUR 08-05 08:33
PROVIDERS: PCP Family Medicine; Visit Provider Orthopaedic Surgery
PROC: (CPT 27447; principal; 2024-08-04 07:30)
DX: M17.12 Unilateral primary osteoarthritis, left knee (principal); M25.762 Osteophyte, left knee; G89.29 Other chronic pain; F41.9 Anxiety disorder, unspecified; K58.9 Irritable bowel syndrome, unspecified; K21.9 Gastro-esophageal reflux disease without esophagitis; F12.90 Cannabis use, unspecified, uncomplicated; Z79.85 Long-term (current) use of injectable non-insulin antidiabetic drugs; Z98.890 Other specified postprocedural states; Z90.49 Acquired absence of other specified parts of digestive tract; Z98.51 Tubal ligation status; Z80.51 Family history of malignant neoplasm of kidney; Z82.49 Family history of ischemic heart disease and other diseases of the circulatory system
CPT/HCPCS: 27447; 36415; 73560; 80048; 85025; 86850; 86900; 86901; 97110; 97116; 97161; 97165; 97530; 97535; A9270; C1713; C1776; J0171; J0690; J1100; J1171; J1741; J1885; J2003; J2250; J2270; J2405; J2704; J2795; J3010; J3370; J7030; J7120

== ENCOUNTER 2024-09-02 12:11 | Outpatient (CLI) | payer OTHER, SELFPAY ==
--- NOTE | ~2024-09-02 | MM_ITS ---
EXAMINATION: MM screening daphne BI w sonia HISTORY: Screening TECHNIQUE: Craniocaudal and mediolateral oblique 3-D tomosynthesis images were obtained and synthetic 2-D images were generated. CAD analysis was submitted and interpreted. COMPARISON: 08/08/2023 BREAST PARENCHYMAL COMPOSITION: Not dense: There are scattered areas of fibroglandular density. FINDINGS: There is no evidence of suspicious mass, calcification, or architectural distortion to sugg est malignancy in either breast. There has been no suspicious interval change. IMPRESSION: 1. No mammographic evidence of malignancy. 2. Recommend routine screening mammography in one year. BI-RADS Category 1: Negative Reviewed, dictated and finalized at location B. 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
== END 2024-09-02 12:12 | disposition home or self-care (01) ==
PROVIDERS: PCP Obstetrics & Gynecology; Visit Provider Nurse Practitioner
DX: Z12.31 Encounter for screening mammogram for malignant neoplasm of breast (principal)
CPT/HCPCS: 77063; 77067

== ENCOUNTER 2024-09-14 10:45 | Outpatient (CLI) | payer OTHER, SELFPAY ==
[2024-09-14 13:50] LABS: Hematocrit 42.1 % (37.0-47.0); Hemoglobin 13.2 g/dL (12.0-15.0); Mean Corpuscular HGB Conc 31.4 g/dl (32-36); Mean Corpuscular Hemoglobin 30.7 pg (26-34); Mean Corpuscular Volume 97.9 fl (80-100); Mean Platelet Volume 10.5 fl (7.4-10.4); Platelet Count Result 353 k/mm3 (150-375); Red Cell Distribution Width 14.2 % (11.5-14.5)
[2024-09-14 13:51] LABS: Alanine Aminotransferase 23 U/L (6-35); Albumin Level 4.6 g/dL (3.5-5.1); Alkaline Phosphatase 114 U/L (38-126); Anion Gap 4 mmol/L (4-12); Aspartate Amino Transferase 52 U/L (14-36); Bilirubin,Total 0.5 mg/dL (0.2-1.3); Blood Urea Nitrogen 18 mg/dL (7-17); Calcium 9.6 mg/dL (8.4-10.2); Carbon Dioxide 29 mmol/L (22-30); Chloride 107 mmol/L (98-107); Estimated Glomerular Filt Rate 57; Glucose 83 mg/dL (65-110); Potassium 4.7 mmol/L (3.4-5.0); Sodium 140 mmol/L (137-145)
== END 2024-09-14 10:46 | disposition home or self-care (01) ==
PROVIDERS: PCP Family Medicine; Visit Provider Nurse Practitioner
DX: Z00.00 Encounter for general adult medical examination without abnormal findings (principal); R63.4 Abnormal weight loss
CPT/HCPCS: 36415; 80053; 84443; 85027

== ENCOUNTER 2024-09-14 11:00 | Outpatient (CLI) | payer OTHER, SELFPAY ==
--- NOTE | ~2024-09-14 | XR_ITS ---
EXAMINATION: XR chest 2V 09/14/2024 11:14 INDICATION: Abnormal weight loss PROCEDURE: 2 view chest COMPARISON: Comparison to multiple prior studies sequentially, with oldest reviewed study dated 07/31. FINDINGS: The lungs are clear. The cardiomediastinal silhouette is within normal limits. There are no pleural effusions. There is no pneumothorax suspected. There is scoliosis. There are mild endpla te compression deformities of multiple vertebra, likely chronic. IMPRESSION: 1: NO ACUTE CARDIOPULMONARY DISEASE. Reviewed, dictated and finalized at location B. 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
== END 2024-09-14 11:01 | disposition home or self-care (01) ==
PROVIDERS: PCP Internal Medicine Cardiovascular Disease; Visit Provider Nurse Practitioner
DX: R63.4 Abnormal weight loss (principal); R06.09 Other forms of dyspnea
CPT/HCPCS: 71046

== ENCOUNTER 2024-09-14 12:01 | Outpatient (CLI) | payer OTHER, SELFPAY ==
--- NOTE | 2024-09-14 12:17 | ECHO_ITS ---
Patient Info Name: Kayla Castañeda Age: 58 years : 1965 Gender: Female Ht: 66 in Wt: 166 lbs BSA: 1.89 m2 HR: 87 bpm BP: 97 / 69 mmHg Technical Quality: Fair Exam Date: 09/14/2024 12:23 PM Exam Location: Echo Lab Patient Status: Outpatient Admit Date: 09/14/2024 Staff Ordering Physician: Donn Liriano DO Scale Balancer: Dillon Dick RDCS Attending Provider: Donn Liriano DO Referring Physician: Heri RODRIGUEZ; Exam Type: CA echo doppler color flow Study Info Indications - OTHER FORMS OF DYSPNEA Complete two-dimensional, color flow and Doppler transthoracic echocardiogram is performed. Summary 1. Complete two-dimensional, color flow and Doppler transthoracic echocardiogram is performed. 2. Left ventricular chamber dimension is normal. 3. Left ventricular systolic function is normal, estimated at 55-60%. 4. The left ventricular diastolic function is grade I diastolic dysfunction. 5. E/e' 4 is not elevated. 6. Left atrial chamber dimension is mildly enlarged. 7. There is mild mitral valve regurgitation. Left Ventricle E/e' 4 is not elevated. Left ventricular chamber dimension is normal. Left ventricular systolic function is normal, estimated at 55-60%. The left ventricular diastolic function is grade I diastolic dysfunction. Right Ventricle Right ventricular systolic function is normal and with normal TAPSE 1.9 cm. Right ventricular chamber dimension is normal. Left Atria Left atrial chamber dimension is mildly enlarged. Right Atria Right atrial chamber dimension is normal. Aortic Valve The aortic valve is trileaflet. There is no aortic valve stenosis. There is no aortic valve regurgitation. Pulmonic Valve There is no pulmonic regurgitation. Mitral Valve There is no mitral valve stenosis. There is mild mitral valve regurgitation. Tricuspid Valve There is no tricuspid valve regurgitation. Pericardium/Pleural There is no pericardial effusion. Inferior Vena Cava Normal inferior vena cava with >50% collapse upon inspiration consistent with normal right atrial pressure, 5 mmHg. Aorta The aortic root size at the sinus of Valsalva is normal. Left Ventricular Outflow Tract Name Value Normal LVOT 2D LVOT Diameter 2.1 cm LVOT Doppler LVOT Peak Gradient 3 mmHg LVOT Mean Gradient 2 mmHg LVOT VTI 18 cm LVOT VTI/AV VTI Ratio 0.9 LVOT Stroke Volume 67 ml LVOT CO 5.3 l/min LVOT CI 2.8 l/min/m2 Pulmonic Valve Name Value Normal RVOT Doppler RVOT Peak Gradient 3 mmHg PV Doppler PV Peak Gradient 4 mmHg Mitral Valve Name Value Normal MV Doppler MV Decel Holt 256 cm/s2 MV PHT 55 ms MV Area (PHT) 4.0 cm2 4.0-5.0 MV Diastolic Function MV E Peak Velocity 48 cm/s MV A Peak Velocity 68 cm/s MV E/A 0.7 MV Decel Time 189 ms MV Annular TDI MV E/e' (Septal) 5.3 <=8.0 MV E/e' (Lateral) 3.7 <=8.0 MV E/e' (Average) 4.5 Tricuspid Valve Name Value Normal Estimated PAP/RSVP RA Pressure 5 mmHg <=5 Aorta Name Value Normal Ascending Aorta Ao Root Diameter (MM) 2.9 cm Ao Root Diam Index (MM) 1.5 cm/m2 Aortic Valve Name Value Normal AV Doppler AV Peak Velocity 114 cm/s AV Peak Gradient 5 mmHg AV Mean Gradient 3 mmHg AV VTI 21 cm AV Area (Cont Eq VTI) 3.2 cm2 >=3.0 AV Area (Cont Eq Rambo) 2.9 cm2 AV Regurgitation 2D LVOT Area 3.6 cm2 Ventricles Name Value Normal LV Dimensions 2D/MM IVS Diastolic Thickness (2D) 1.0 cm 0.6-1.0 LVID Diastole (2D) 4.4 cm 3.8-5.2 LVIW Diastolic Thickness (2D) 0.9 cm 0.6-0.9 LVID Systole (2D) 2.8 cm 2.2-3.5 LVOT Diameter 2.1 cm LV Mass (2D Cubed) 134.41 g 67.00-162.00 LV Mass Index (2D Cubed) 71 g/m2 43-95 Relative Wall Thickness (2D) 0.39 LV Fractional Shortening/Ejection Fraction 2D/MM LV Fractional Shortening (2D) 38 % 27-45 LV EF (2D Teicholz) 68 % 54-74 LV Diastolic Volume (4C MOD) 79 ml LV EF (4C MOD) 59 % LV Diastolic Volume (2C MOD) 61 ml LV EF (2C MOD) 51 % LV Diastolic Volume (BP MOD) 71 ml 46-106 LV Diastolic Volume Index (BP MOD) 38 ml/m2 29-61 LV Systolic Volume (BP MOD) 32 ml 14-42 LV Systolic Volume Index (BP MOD) 17 ml/m2 8-24 LV EF (BP MOD) 55 % 54-74 LV Diastolic Length (4C) 7.4 cm LV Systolic Length (4C) 6.3 cm LV Stroke Volume (4C MOD) 47 ml Atria Name Value Normal LA Dimensions LA Dimension (MM) 3.4 cm 2.7-3.8 LA Volume (4C A-L) 50 ml LA Volume (BP A-L) 49 ml RA Dimensions RA Area (4C) 13.4 cm2 <=18.0 Report Signatures
== END 2024-09-14 12:02 | disposition home or self-care (01) ==
PROVIDERS: PCP Internal Medicine Cardiovascular Disease; Visit Provider Internal Medicine Cardiovascular Disease
DX: R06.09 Other forms of dyspnea (principal)
CPT/HCPCS: 36415; 80053; 84443; 85027; 93306

== ENCOUNTER 2024-10-21 10:45 | Outpatient (RCR) | payer OTHER, SELFPAY ==
--- NOTE | 2024-08-31 15:01 | OPREHPOC ---
Outpatient Therapy Plan of Care This is a Multidisciplinary Plan of Care that may contain components documented by all disciplines (PT, OT, and ST.) PT Problem 1 PT Problem #1 Knowledge Deficit PT Goal 1 Goal / Goal Update 1. Patient will perform independent HEP Target Visit 4 PT Problem 2 PT Problem #2 Pain PT Goal 1 Goal / Goal Update 1. Pain no higher than 3/10 with all typical activities Target Visit 10 PT Problem 3 PT Problem #3 Impaired Gait PT Goal 1 Goal / Goal Update 1. Patient will ambulate 300+ feet on the 2 minute walk test without device Target Visit 10 PT Problem 4 PT Problem #4 Impaired Range of Motion PT Goal 1 Goal / Goal Update 1. Left flexion to 125 degrees for stair navigation 2. Left extension to 0 for normalized gait pattern . PT Problem 5 PT Problem #5 Impaired Balance PT Goal 1 Goal / Goal Update 1. 5 time sit to stand less than 12 seconds to decrease fall risk Target Visit 10
--- NOTE | 2024-08-31 15:02 | PTOPEVAL1 ---
Assessment and note entered by Jennifer Panda DPT Evaluation Information Assessment Status Evaluation ICD-10 Condition Codes (PT) Pain in left knee M25.562,Difficulty Walking R26.2 ,Weakness R53.1,Z47.1 Subjective Information Pt had L TKA on 08/04/24, had home health and was discharged. Highest pain 7/10 and lowest 1/10 over the last week. Currently using a walker, has a cane which she has not used yet. No device used prior to the surgery. Continued difficulty cooking due to difficulty standing but can do some things . Has a walk in shower and using a chair, using a raised seat on her toilet. Pt started driving today. Pt is retired. Pt reports she would like to get back to walking her dog and navigate stairs, use her toilet without the raised seat. Reports a small step to get in to her house and home made stairs that are uneven and she does not have to do . Pt states she may be getting a left foot surgery in the next few years. Returns to [place] in 3 months. Reported Pain Level Pain Score 3: Self Report Assessment PT Clinical Summary The patient is s/p L TKA on 08/04/24. She presents with decreased range of motion, decreased strength , gait and balance impairments which are contributing to her pain and difficulty performing all tasks independently including showering and cooking. She will highly benefit from therapy to address these impairments in order to eliminate pain and safely return to full function. LEFS= 73. 75% disability. Plan of Care Interventions Electrical Stimulation,Gait Training,Hot Pack/Cold Pack,Manual Therapy,Neuro Re-education,Patient/ Caregiver Education,Therapeutic Activities, Therapeutic Exercise PT Services Indicated Yes Treatment Frequency and 2 times a week for 10 visits Duration These treatments will address the objective and functional deficits as defined above. The patient will be advanced safely and appropriately in order for the patient to progress towards his/her prior level of function. Additional exercises will be introduced and as well as a comprehensive home exercise program upon discharge, if needed, ?to ensure carryover of functional gains achieved in the clinic. This treatment plan has been reviewed and agreement upon by the patient.
--- NOTE | 2024-10-21 11:51 | OPREHPOC ---
Outpatient Therapy Plan of Care This is a Multidisciplinary Plan of Care that may contain components documented by all disciplines (PT, OT, and ST.) PT Problem 1 PT Problem #1 Knowledge Deficit PT Goal 1 Goal / Goal Update 1. Patient will perform independent HEP Target Visit 4 Progress Met PT Problem 2 PT Problem #2 Pain PT Goal 1 Goal / Goal Update 1. Pain no higher than 3/10 with all typical activities Target Visit 10 Progress Met PT Problem 3 PT Problem #3 Impaired Gait PT Goal 1 Goal / Goal Update 1. Patient will ambulate 300+ feet on the 2 minute walk test without device Target Visit 10 Progress Met PT Problem 4 PT Problem #4 Impaired Range of Motion PT Goal 1 Goal / Goal Update 1. Left flexion to 125 degrees for stair navigation 2. Left extension to 0 for normalized gait pattern . Progress Met PT Problem 5 PT Problem #5 Impaired Balance PT Goal 1 Goal / Goal Update 1. 5 time sit to stand less than 12 seconds to decrease fall risk Target Visit 10 Progress Met
--- NOTE | 2024-10-21 11:51 | PTOPDC ---
Assessment and note entered by Jluis Almonte, PT Evaluation Information Assessment Status Discharge ICD-10 Condition Codes (PT) Pain in left knee M25.562,Difficulty Walking R26.2 ,Weakness R53.1,Aftercare following joint replacement surgery Z47.1 Subjective Information Reports that overalls he is a bit better but still dependent on Tylenol for pain control. She would like to do aquatic therapy and feel she is able to do more in the water. Reports that she has not been as active as she should be at this point due to the weather. Reports that she has been trying to take short walks. Reported Pain Level Pain Score 4: Self Report Assessment PT Clinical Summary Patient has met all goals for therapy and is suitable for discharge to [facility] at this time. Patient has achieved full ROM. Some weakness sin hips still noted but will be addressed through HEP . Plan of Care PT Services Indicated Yes
== END 2024-10-21 12:22 | disposition home or self-care (01) ==
LOC: ANHPT 10:45
PROVIDERS: PCP Family Medicine; Visit Provider Orthopaedic Surgery
DX: Z47.1 Aftercare following joint replacement surgery (principal); Z96.652 Presence of left artificial knee joint
CPT/HCPCS: 97110; 97116; 97140; 97161; 97530

== ENCOUNTER 2024-11-05 08:38 | Outpatient (CLI) | payer OTHER, SELFPAY ==
--- OUTSIDE RECORDS SUMMARY | 2024-11-05 08:48 | XMS_ITS | Referral Summary ---
Author Organization [facility] Address [address] [place] [address] Care Team Providers Care Mortgage Loan Processing Clerk Name Role Phone Ivy Feldman RN Unavailable Unavailable Torin Hercules DO Primary Care Provider [phone] Source Comments [facility],non-owned Affiliates and Associated Physician Practices is amultiple site organization consisting of ambulatory clinics and hospital sitesin [place], [place], [place] and [place]. This disclosure is being madepursuant to the Care Everywhere program and may not contain all information available regarding this patient. Last updated 18.[facility] [employer] Allergies Active Allergy Reactions Criticality Noted Date Comments Celecoxib Itching Diclofenac-Misoprostol Rash Medium 05/11/2008 Diclofenac-Misoprostol Other unsure Nitrofurantoin Rash Medium 05/11/2008 Penicillins Itching Low 12/05/2017 Sertraline Swelling Low 12/05/2017 pelvic swelling Medications * Be aware that medications may not be up to date on this document. Alwaysverify current medications with the patient. Medication Sig Dispensed Refills Start Date End Date Status clonazePAM (KLONOPIN) 2 MG tablet Take by mouth at bedtime Active Multiple Vitamins-Minerals (ONE-A-DAY 50 PLUS PO) Active lamoTRIgine (LAMICTAL) 200 MG tablet TK 1 T PO QAM AND 2 TS QHS 5 03/01/2018 Active albuterol HFA (PROVENTIL;VENTOLIN ;PROAIR) 108 (90 Base) MCG/ACT inhaler ProAir HFA 90 mcg/actuation aerosol inhaler INHALE 2 PUFFS PO QID PRF BREATHING Active FLUoxetine (PROZAC) 10 MG tablet fluoxetine 10 mg tablet Active meloxicam (MOBIC) 15 MG tablet meloxicam 15 mg tablet TK 1 T PO QD Active estradiol (VAGIFEM) 10 MCG vaginal tablet Insert 1 (one) tablet into the vagina every Friday & 8 tablet 11 04/26/2021 Active Meth-Hyo-M Bl-Na Phos-Ph Aly (URIBEL) 118 MG Take 1 (one) capsule by mouth 2 times daily as needed 40 capsule 04/30/2021 Active Cholecalciferol (VITAMIN D) 50 MCG (1999 UT) capsule Take 2,000 Units by mouth once daily 04/17/2021 Active Linzess 145 MCG capsule TAKE 1 CAPSULE BY MOUTH DAILY 30 MINUTES BEFORE FIRST MEAL OF THE DAY ON AN EMPTY STOMACH 30 capsule 11 10/15/2022 Active Active Problems Problem Noted Date Diagnosed Date Hip pain 08/17/2020 Knee pain 08/17/2020 Osteoarthritis of knee 08/17/2020 Recurrent UTI 02/24/2018 H/O hysterectomy for benign disease 01/06/2013 Overview (04/02/2018): Overview: 1998 for prolapse History of abnormal Pap smear 01/06/2013 Overview (04/02/2018): Overview: 1989 h/o abn pap & cryo 10/2008 vag pap negative 05/2010 vag pap negative 10/2011 vag pap negative 11/2012 vag pap negative, HPV negative NO further paps needed Bipolar affective disorder 11/26/2011 Fibrocystic breast disease in female 11/26/2011 Overview (04/02/2018): Overview: Mamms @ [facility] 12/2013 negative 09/2014 [facility] Dx Mamm negative 2014 [place] w/ Dr. Lauren Nunez normal 01/2016 [facility] scrng mamm negative Social History Tobacco Use Types Packs/Day Years Used Date Smoking Tobacco: Never Smokeless Tobacco: Never Alcohol Use Standard Drinks/Week Comments No 0 (1 standard drink = 0.6 oz pur e alcohol) Sex and Gender Information Value Date Recorded Sex Assigned at Not on file Gender Identity Not on file Sexual Orientation Not on file Last Filed Vital Signs Vital Sign Reading Time Taken Comments Blood Pressure 120/82 07/05/2021 10:42 AM CDT Pulse 74 03/06/2015 12:16 PM CDT Temperature 36.7 C (98.1 F) 03/06/2015 12:16 PM CDT Respiratory Rate - - Oxygen Saturation - - Inhaled Oxygen Concentration - - Weight 98 kg (216 lb) 07/05/2021 10:42 AM CDT Height 170.2 cm (5' 7 ) 07/05/2021 10:42 AM CDT Body Mass Index 33.83 07/05/2021 10:42 AM CDT Plan of Treatment Not on file Procedures Procedure Name Priority Date/Time Associated Diagnosis Comments MAMMO BILAT SCREENING W HERIBERTO Routine 07/23/2022 12:02 PM CDT Visit for screening mammogram from Last 3 Months or Most Recently Relevant to Health Maintenance Results * MAMMO BILAT SCREENING W HERIBERTO (07/23/2022 12:02 PM CDT) Anatomical Region Laterality Modality Breast Bilateral Mammography 07/29/2022 2:27 PM CDT Impressions 07/29/2022 2:30 PM CDT : Annual screening mammography is recommended. OVERALL FINAL ASSESSMENT: BI-RADS Category 1: Negative. > Interpreting Provider: Grady Keys MD on 07/29/2022 2:30 PM Narrative 07/29/2022 2:30 PM CDT EXAMINATION: BILATERAL DIGITAL SCREENING MAMMOGRAM AND BILATERAL BREAST TOMOSYNTHESIS HISTORY: Screening. COMPARISON: Serial examinations dating back to February 15, 2016. TECHNIQUE: BILATERAL digital breast tomosynthesis (DBT) and synthetic 2D digital mammogram images were obtained (bilateral craniocaudal and mediolateral oblique projections) including computer aided detection (CAD.) BREAST PARENCHYMAL COMPOSITION:Category B: There are scattered areas of fibroglandular density. MAMMOGRAM FINDINGS: There is no suspicious finding in either breast. Monse Bass MD MAMMO ORDERABLES from Last 3 Months or Most Recently Relevant to Health Maintenance Care Teams Mortgage Loan Processing Clerk Relationship Specialty Start Date End Date Ivy Feldman RN PCP - OBGYN Nurse Practitioner 01/06/13 Torin Hercules DO [address] [place], [place] [id number] PCP - General 04/23/21
--- OUTSIDE RECORDS SUMMARY | 2024-11-05 08:48 | XMS_ITS ---
Author Organization [facility] [employer] Address [address] [facility] [address] [place] [address] Care Team Providers Care Sign Hanger Name Role Phone Augusto Cai Unavailable [phone] Allergies Allergen (clinical drug ingredient) Drug/Non Drug Allergy documented on EMR Reaction Allergy Type Onset Date Status penicillin V PENICILLIN V (uncoded) Unknown Allergy 11/11/2023 Active ciprofloxacin Cipro Unknown Drug Allergy 11/11/2023 Ac tive nitrofurantoin, macrocrystals / nitrofurantoin, monohydrate Macrobid Unknown Drug Allergy 11/11/2023 Active codeine Codeine Unknown Drug Allergy 11/11/2023 Active Medications Medication SIG (Take, Route, Frequency, Duration) Notes Start Date End Date Status Estradiol 0.01 % (0.1 mg/gram) Vaginal *Pick strength-form from [employer] for eRX* 11/11/2023 Active clonazePAM 1 MG 1 tablet Oral Once a day for 30 days 03/11/2024 Active Diclofenac Sodium 1% Transdermal 11/11/2023 Active GEMTESA 75 MG TABLET *[facility] and Interaction Alerts* 11/11/2023 Active Celecoxib 200 MG Oral 11/11/2023 Ac tive lamoTRIgine 200 MG 1 tablet every morning 2 tablet every evening Oral as directed for 30 days 11/11/2023 Active Vagifem 10 mcg Vaginal 11/11/2023 Acti ve Linzess 145 MCG Oral 11/11/2023 Act rosario Cefdinir 300 MG Oral 11/11/2023 Act rosario Linzess 72 mcg Oral 11/11/2023 Acti ve clonazePAM 2 MG Oral 11/11/2023 Act rosario FOSFOMYCIN TROMETHAMINE 3 GRAM ORAL PACKET *Reorder from [employer] for eRx and Interaction Alerts* 11/11/2023 Active Famotidine 20 MG Oral 11/11/2023 Ac tive Omeprazole 20 MG Oral 11/11/2023 Ac tive Sulfamethoxazole-Tri methoprim 800-160 MG Oral 11/11/2023 Active Trimethoprim 100 MG Oral 11/11/2023 Active Social History Sex Assigned At : Social History Observation Description Sex Assigned At Female Encounters Encounter Location Date Provider Diagnosis [facility] [employer] [address] [facility] [address] [place] [address] 03/11/2024 Augustotyrone Wagneroza Generalized anxiety disorder F41.1 and Bipolar disorder, currently in remission, most recent episode unspecified F31.70 Assessments Encounter Date Diagnosis (ICD Code) Assessment Notes Treatment Notes Treatment Clinical Notes Section Notes 03/11/2024 Generalized anxiety disorder (ICD-10 - F41.1) 03/11/2024 Bipolar disorder, currently in remission, most recent episode unspecified (ICD-10 - F31.70) lamotrigine + estradiol (hormone replacement) consider incr. lamotrigine maint. dose 2-fold, initial dose escalation unchanged; no change if also on carbamazepine, phenytoin, phenobarbital, primidone or rifampin: combo january decr. lamotrigine levels by 50% (UGT induced) Plan Of Treatment Medication Medication Name Sig Start Date Stop Date Notes clonazePAM 1 MG 1 tablet Oral Once a day for 30 days 03/11 lamoTRIgine 200 MG 1 tablet every morni ng 2 tablet every evening Oral as directed for 30 days 11/11/2023 Treatment Notes Assessment Notes Bipolar disorder, currently in remission, most recent episode unspecified lamotrigine + estradiol (hormone replacement) consider incr. lamotrigine maint. dose 2-fold, initial dose escalation unchanged; no change if also on carbamazepine, phenytoin, phenobarbital, primidone or rifampin: combo may decr. lamotrigine levels by 50% (UGT induced) Next Appt Details Follow Up: 4 Months, Reason: Progress Notes * NITIN MASON: 4 (58 yo F)Acc No.[id number]:03/11/2024 Patient: ANGELES RODRIGUEZ Provider: LIGIA GONZALEZ :1965 A ge:58 Y S ex:Female Date:03/11/2024 Address:[address] [place], [place] [id number] Subjective: * Chief Complaints: * * HPI: D epression screening: PHQ-9 L ittle interest or pleasure in doing things S everal days, F eeling down, depressed, or hopeless N ot at all, T rouble falling or staying asleep, or sleeping too much S everal days, F eeling tired or having little energy S everal days, P oor appetite or overeating S everal days, F eeling bad about yourself or that you are a failure, or have let yourself or your family down S everal days, T rouble concentrating on things, such as reading the newspaper or watching television N ot at all, M oving or speaking so slowly that other people could have noticed; or the opposite, being so fidgety or restless that you have been moving around a lot more than usual N ot at all, T houghts that you would be better off or of hurting yourself in some way N ot at all, T otal Score?6, I nterpretation M ild Depression. D epression Screening: MILADY-7 (2018 Edition) F eeling nervous, anxious, or on edge?Several days, N ot being able to stop or control worrying S everal days, W orrying too much about different things S everal days, T rouble relaxing S everal days, B eing so restless that it is hard to sit still N ot at all, B ecoming easily annoyed or irritable S everal days, F eeling afraid as if something awful might happen N ot at all, T otal MILADY-7 Score 5 , I f you checked any problems, how difficult have they made it for you to do your work, take care of things at home, or get along with other people? S omewhat difficult, I nterpretation of Total ( 5 to 9) Mild. H istory of Presenting Problem: follow up for bipolar d/o, anxiety She states she got . She has been doing [employer] a lot, helping other people. She states she has to renew 2 certifications in mental health and substance use every 2 years, needs 70 CEU's. She reports she is a little concerned because her grandson is joining [employer]. She is not going to therapy, she states the copay was $60 a visit. She started ozempic, feels it makes lamotrigine feel like it hangs around longer, has had 2 mornings she felt tired or had double vision one morning. 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 * ROS: P sychiatric: Patient denies a nxiety, depressed mood, loss of appetite.? * Medical History: P sirenalems: Bipolar disorder in remission, Generalized anxiety disorder, ,. * Surgical History: T onsilectomy/adenoids 09/29/1991, Removal of gallbladder (11402) 09/29/1996, Hysterectomy (65258) 09/29/2000. * Social History: M igrated Social History: M igrated Social History: Alcohol Intake: None 12/12/2022,Tobacco Years: Never smoker 12/12/2022. * Medications: T aking Cefdinir 300 MG Capsule Oral , Taking Linzess 72 mcg Capsule Oral , Taking GEMTESA 75 MG TABLET , Notes to Pharmacist: *Reorder from [employer] for eRx and Interaction Alerts*, Taking Celecoxib 200 MG Capsule Oral , Taking Estradiol 0.01 % (0.1 mg/gram) Cream Vaginal , Notes to Pharmacist: *Pick strength-form from [employer] for eRX*, Taking lamoTRIgine 200 MG Tablet Oral , Taking Diclofenac Sodium 1% Gel Transdermal , Taking Trimethoprim 100 MG Tablet Oral , Taking FOSFOMYCIN TROMETHAMINE 3 GRAM ORAL PACKET , Notes to Pharmacist: *Reorder from [employer] for eRx and Interaction Alerts*, Taking clonazePAM 1 MG Tablet Oral , Taking clonazePAM 2 MG Tablet Oral , Taking Omeprazole 20 MG Capsule Delayed Release Oral , Taking Sulfamethoxazole-Trimethoprim 800-160 MG Tablet Oral , Taking Famotidine 20 MG Tablet Oral , Taking Linzess 145 MCG Capsule Oral , Taking Vagifem 10 mcg Tablet Vaginal * Allergies: P ENICILLIN V: Allergy - Onset Date 11/11/2023, Cipro: Allergy - Onset Date 11/11/2023, Macrobid: Allergy - Onset Date 11/11/2023, Codeine: Allergy - Onset Date 11/11/2023. Objective: * Vitals: * Examination: P sychiatry: Appearance: w ell-groomed, well-nourished, .... Affect / mood: a ppropriate, full range. Attention: g ood. Attitude: c ooperative. Suicidal ideation: n one. Memory status: n o impairment noted. Degree of awareness of surroundings: w ithin normal limits.? Delusions: n o. Hallucinations: n o. Insight: g ood. Intellectual functioning: n o impairment noted. Judgement: g ood. Orientation: a wake, alert and oriented x 3. Perceptual disorders: n o perceptual disorder noted. Psychomotor activity: w ithin normal range. Speech / language: a ppropriate pitch/modulation, clear and coherent, normal rate, volume, and articulation (RVR), proper grammar used. Thought content: a ppropriate. Thought process: i ntact. Assessment: * Assessment: 1. G eneralized anxiety disorder - F41.1 (Primary) 2 . B ipolar disorder, currently in remission, most recent episode unspecified - F31.70 Plan: * Treatment: 2. B ipolar disorder, currently in remission, most recent episode unspecified Refill lamoTRIgine Tablet, 200 MG, 1 tablet every morning 2 tablet every evening, Oral, as directed, 30 days, 90 Tablet, Refills 3. Notes: lamotrigine + estradiol (hormone replacement) consider incr. lamotrigine maint. dose 2-fold, initial dose escalation unchanged; no change if also on carbamazepine, phenytoin, phenobarbital, primidone or rifampin: combo may decr. lamotrigine levels by 50% (UGT induced) * Follow Up: 4 Months * Billing Information: * Visit Code: 33889 OFFICE OUTPATIENT VISIT 25 MINUTES DETAILED HISTORY AND EXAM/MODERATE MEDICAL DECISION MAKING. * Procedure Codes: * Sign off status: Completed true * Provider: Edgardo CAI HNP Date: 0 03/11/2024 Generated for Keith obrien/Alba/Donalditting on: 0 11/05/2024 08:47 AM [employer] History and Physical Notes * HPI (History of Present Illness) Category Sub-Category Detail Notes Category Not es History of Presenting Problem follow up for bipolar d/o, anxiety She states she got . She has been doing [employer] a lot, helping other people. She states she has to renew 2 certifications in mental health and substance use every 2 years, needs 70 CEU's. She reports she is a little concerned because her grandson is joining the [employer]. She is not going to therapy, she states the copay was $60 a visit. She started ozempic, feels it makes lamotrigine feel like it hangs around longer, has had 2 mornings she felt tired or had double vision one morning. 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, reports she needs paperwork completed every 3 years for it Depression screening PHQ-9 Little inte rest or pleasure in doing things: Several days Feeling down, depressed, or hopeless: No t at all Trouble falling or staying asleep, or sl eeping too much: Several days Feeling tired or having little energy: S everal days Poor appetite or overeating: Several day s Feeling bad about yourself o r that you are a failure, or have let yourself or your family down: Several days Trouble concentrating on thi ngs, such as reading the newspaper or watching television: Not at all Moving or speaking so slowly that other people could have noticed; or the opposite, being so fidgety or restless that you have been moving around a lot more than usual: Not at all Thoughts that you would be b adan off or of hurting yourself in some way: Not at all Total Score: 6 Interpretation: Mild Depression Depression Screening MILADY-7 (2018 Edition) Feelin g nervous, anxious, or on edge: Several days Not being able to stop or control worryi ng: Several days Worrying too much about different things : Several days Trouble relaxing: Several days Being so restless that it is hard to sit still: Not at all Becoming easily annoyed or irritable: Se veral days Feeling afraid as if something awful kristopher ht happen: Not at all Total MILADY-7 Score: 5 If you checked any problems, how difficult have they made it for you to do your work, take care of things at home, or get along with other people?: Somewhat difficult Interpretation of Total: (5 to 9) Mild Examination Category Sub-Category Detail Notes Category Not es Psychiatry Appearance: well-groomed, well-nourished , ... Attitude: cooperative Psychomotor activity: within normal rang e Attention: good Degree of awareness of surroundings: wit hin normal limits Orientation: awake, alert and trin[place] ented x 3 Affect / mood: appropriate, full ra nge Speech / language: appropriate pitch/mo dulation, clear and coherent, normal rate, volume, and articulation (RVR), proper grammar used Insight: good Judgement: good Thought process: intact Thought content: appropriate Perceptual disorders: no perceptual diso rder noted Suicidal ideation: none Intellectual functioning: no impairment noted Memory status: no impairment noted Delusions: no Hallucinations: no
--- OUTSIDE RECORDS SUMMARY | 2024-11-05 08:48 | XMS_ITS | Clinical Summary ---
Author Organization [facility] Address [address] [place] [address] Care Team Providers Care Cable Cutter And Swager Name Role Phone Ivy Feldman RN Unavailable Unavailable Torin Hercules DO Primary Care Provider [phone] Source Comments [facility],non-owned Affiliates and Associated Physician Practices is amultiple site organization consisting of ambulatory clinics and hospital sitesin [place], [place], [place] and [place]. This disclosure is being madepursuant to the Care Everywhere program and may not contain all information available regarding this patient. Last updated 18.[facility] [employer] Allergies Active Allergy Reactions Criticality Noted Date [...] female 11/26/2011 Overview (04/02/2018): Overview: Mamms @ [facility] 12/2013 negative 09/2014 [facility] Dx Mamm negative 2014 Charlene w/ Dr. Lauren Nunez normal 01/2016 [facility] scrng mamm negative Family History Medical History Relation Name Comments Cancer - Other Father kidney Hypertension Mother Relation Name Status Comments Father Mother Social History Tobacco Use Types Packs/Day Years [...] 07/05/2021 10:42 AM CDT Plan of Treatment Health Maintenance Due Date Last Done Comments COLOGUARD (AGES 45-75) - COLON CA SCREENING 1965 COLON MONITORING 1965 COLONOSCOPY - COLON CA SCREENING 1965 CT COLONOGRAPHY - COLON CA SCREENING 1965 Colorectal Cancer Screening 1965 FIT - COLON CA SCREENING 1965 FLEX SIG - COLON CA SCREENING 1963 LIPID TESTING 1965 HIV SCREENING 1978 HEPATITIS C SCREENING 10/22/1981 DTAP/TDAP/TD VACCINES (1 - Tdap) 1982 PNEUMOCOCCAL VACCINE 50+ (1 of 1 - PCV) 2013 ZOSTER VACCINE (1 of 2) 2013 SCREENING FOR DIABETES 08/17/2020 COVID-19 VACCINE (1 - 2023- season) 2024 INFLUENZA VACCINE (#1) 2024 MAMMOGRAM 07/23/2024 07/23/2022, 1003/2021, 04/15/2019, Additional history exists Respiratory Syncytial Virus (RSV) Vaccine Pt: or over 60 yrs (1 - 1-dose 75+ series) 2038 HEPATITIS B VACCINE Aged Out No longe r eligible based on patient's age to complete this topic HIB VACCINE Aged Out No longer eligi ble based on patient's age to complete this topic HPV VACCINE Aged Out No longer eligi ble based on patient's age to complete this topic MENINGOCOCCAL (Group B) VACCINE Aged Out No longer eligible based on patient's age to complete this topic MENINGOCOCCAL VACCINE Aged Out No renee elmer eligible based on patient's age to complete this topic PNEUMOCOCCAL VACCINE Aged Out No long er eligible based on patient's age to complete this topic Procedures Procedure Name Priority Date/Time Associated Diagnosis [...] Recently Relevant to Health Maintenance Care Teams [employer] Relationship Specialty Start Date End Date Ivy Feldman RN PCP - OBGYN Nurse Practitioner 01/06/13 Torin Hercules DO [address] [place] [address] PCP - General 04/23/21
--- OUTSIDE RECORDS SUMMARY | 2024-11-05 08:48 | XMS_ITS | Patient Health Record ---
Author Organization [facility] [email or web address] Address [address] [place] [address] Care Team Providers Care Applications Support Engineer Name Role Phone Augusto Cai Unavailable [phone] Monisha Davidna Unavailable [phone] Migration, Provider Unavailable Unavailable Allergies Allergen (clinical drug ingredient) Drug/Non Drug Allergy documented on EMR Reaction Allergy Type Onset Date Status penicillin V PENICILLIN V (uncoded) Unknown Allergy 11/11/2023 Active ciprofloxacin Cipro Unknown Drug Allergy 11/11/2023 Ac tive nitrofurantoin, macrocrystals / nitrofurantoin, monohydrate Macrobid Unknown Drug Allergy 11/11/2023 Active codeine Codeine Unknown Drug Allergy 11/11/2023 Active Reason For Referral No Information Medications Medication SIG (Take, Route, Frequency, Duration) Notes Start Date End Date Status Estradiol 0.01 % (0.1 mg/gram) Vaginal *Pick strength-form from [facility] for eRX* 11/11/2023 Active GEMTESA 75 MG TABLET *Reorder fr om [facility] for eRx and Interaction Alerts* 11/11/2023 Active Diclofenac Sodium 1% Transdermal 11/11/2023 Active lamoTRIgine 200 MG 1 tablet Oral twice a day for 90 days Active Sulfamethoxazole-Tri methoprim 800-160 MG Oral 11/11/2023 Active Omeprazole 20 MG Oral 11/11/2023 Ac tive Linzess 145 MCG Oral 11/11/2023 Act rosario Famotidine 20 MG Oral 11/11/2023 Ac tive clonazePAM 1 MG TAKE 1 TABLET BY MOUTH ONCE DAILY for 30 10/13/2024 Active Immunizations Vaccine Route Administration Date Status Comme nts Pfizer-[employer]iontech Covid-19 Vac cine 1st dose Unknown 08/29/2021 Administered Pfizer-Biontech Covid-19 Vac cine 1st dose Unknown 09/29/2021 Administered Social History Tobacco Use: Social History Observation Description Date Details (start date - stop date) Never Smoker NA - NA Sex Assigned At : Social History Observation Description Sex Assigned At Female Tobacco Control (Standard) Question Answer Notes Tobacco use: Nonsmoker Problems Problem Type SNOMED Code ICD Code Onset Dates Problem Status W/U Status Risk Notes Problem Bipolar I disorder, most recent episode mixed, in remission (07060037) Bipolar disorder, currently in remission, most recent episode unspecified (F31.70) Active confirmed Problem Generalized anxiety disorder (12955227) Generalized anxiety disorder (F41.1) Active confirmed Vital Signs Heart Rate 88 /min 11/11/2023 Height-cm 170.18 cm 07/06/2024 Blood pressure diastolic 70 mm Hg 07/06/2024 Weight-kg 81.83 kg 07/06/2024 Height 67.00 in 07/06/2024 Blood pressure systolic 104 mm Hg 07/06/2024 Weight 180.4 lbs 07/06/2024 BMI 28.25 kg/m2 07/06/2024 Encounters Encounter Location Date Provider Diagnosis [facility] [employer] [facility] [address] [facility] [address] [place] [address] 02/24/2024 Stefanie Buckner [facility] [employer] [facility] [address] [place] [address] 11/11/2023 Augusto Cai Generalized anxiety disorder F41.1 and Bipolar disorder, currently in remission, most recent episode unspecified F31.70 [facility] [employer] [facility] [address] [place] [address] 11/26/2023 Stefanie Buckner Bipolar disorder, currently in remission, most recent episode unspecified F31.70 and Generalized anxiety disorder F41.1 [facility] [employer] [facility] [address] [place] [address] 01/12/2024 Stefanie Buckner Generalized anxiety disorder F41.1 and Bipolar disorder, currently in remission, most recent episode unspecified F31.70 [facility] [employer] [facility] [address] [place] [address] 03/11/2024 Augusto Cai Generalized anxiety disorder F41.1 and Bipolar disorder, currently in remission, most recent episode unspecified F31.70 [facility] [address] [address] 07/06/2024 Augusto Cai Generalized anxiety disorder F41.1 and Bipolar disorder, currently in remission, most recent episode unspecified F31.70 [facility] [address] [address] 11/18/2023 Provider Migration [place] [id number] [facility] [address] [address] 01/12/2024 Provider Migration [address] [address] 01/27/2024 Provider Migration [address] [address] 02/14/2024 Provider Migration [address] [address] 02/15/2024 Provider Migration Assessments Encounter Date Diagnosis (ICD Code) Assessment Notes Treatment Notes Treatment Clinical Notes Section Notes 07/06/2024 Generalized anxiety disorder (ICD-10 - F41.1) 1. Anxiety and situational stress - The patient reports increased stress and frustration due to family issues and home remodeling. Mood appears to be stable overall, but situational stressors are impacting her well-being. Plan: - Continue lamotrigine 200 mg twice daily - Continue clonazepam 1 mg once daily - Encourage the patient to maintain open communication with family members and utilize her support system - Consider referral to therapy or support groups if stress levels do not improve 2. Sleep disturbances - The patient reports occasional sleepless nights due to stress and frequent urination caused by a possible UTI or bladder infection. Plan: - Encourage the patient to maintain good sleep hygiene - Evaluate and treat the possible UTI or bladder infection (see below) - Monitor sleep patterns and consider sleep aids if necessary 3. 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 Plan: - Schedule a follow-up appointment closer to the paperwork deadline to discuss and assist with the process - Review the patient's medical history and current status to ensure accurate documentation for disability determination 03/11/2024 Bipolar disorder, currently in remission, most recent episode unspecified (ICD-10 - F31.70) lamotrigine + estradiol (hormone replacement) consider incr. lamotrigine maint. dose 2-fold, initial dose escalation unchanged; no change if also on carbamazepine, phenytoin, phenobarbital, primidone or rifampin: combo may decr. lamotrigine levels by 50% (UGT induced) 03/11/2024 Generalized anxiety disorder (ICD-10 - F41.1) 11/26/2023 Bipolar disorder, currently in remission, most recent episode unspecified (ICD-10 - F31.70) 11/26/2023 Generalized anxiety disorder (ICD-10 - F41.1) 11/11/2023 Bipolar disorder, currently in remission, most recent episode unspecified (ICD-10 - F31.70) 11/11/2023 Generalized anxiety disorder (ICD-10 - F41.1) 01/12/2024 Bipolar disorder, currently in remission, most recent episode unspecified (ICD-10 - F31.70) 01/12/2024 Generalized anxiety disorder (ICD-10 - F41.1) 07/06/2024 Bipolar disorder, currently in remission, most recent episode unspecified (ICD-10 - F31.70) lamotrigine + estradiol (hormone replacement) consider incr. lamotrigine maint. dose 2-fold, initial dose escalation unchanged; no change if also on carbamazepine, phenytoin, phenobarbital, primidone or rifampin: combo may decr. lamotrigine levels by 50% (UGT induced) 1. Anxiety and situational stress - The patient reports increased stress and frustration due to family issues and home remodeling. Mood appears to be stable overall, but situational stressors are impacting her well-being. Plan: - Continue lamotrigine 200 mg twice daily - Continue clonazepam 1 mg once daily - Encourage the patient to maintain open communication with family members and utilize her support system - Consider referral to therapy or support groups if stress levels do not improve 2. Sleep disturbances - The patient reports occasional sleepless nights due to stress and frequent urination caused by a possible UTI or bladder infection. Plan: - Encourage the patient to maintain good sleep hygiene - Evaluate and treat the possible UTI or bladder infection (see below) - Monitor sleep patterns and consider sleep aids if necessary 3. 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 Plan: - Schedule a follow-up appointment closer to the paperwork deadline to discuss and assist with the process - Review the patient's medical history and current status to ensure accurate documentation for disability determination Plan Of Treatment No Information Insurance Providers Payer Name Payer Address Payer Phone Subscriber Number Group Number Insured Name Patient Relationship to Insured Coverage Start Date Coverage End Date [employer] [address] [place] [address] [id number] I ANGELES MASON Self - patient is the insured Medical (General) History Medical History History ICD Code Problems: Bipolar disorder in remission Generalized anxiety disorder , Surgical History Surgery Date(Month/Year) Tonsilectomy/adenoids 09/29/1991 Removal of gallbladder (40118) 7 Hysterectomy (86211) 09/29/2000
--- OUTSIDE RECORDS SUMMARY | 2024-11-05 08:48 | XMS_ITS | Patient Health Summary ---
Author Organization [facility] Address [address] [place] [address] Care Team Providers Care Material Handling Supervisor Name Role Phone Ivy Feldman RN Unavailable Unavailable Torin Hercules DO Primary Care Provider [phone] Note from [facility],non-owned Affiliates and Associated Physician Practices is amultiple site organization consisting of ambulatory clinics and hospital sitesin [place], [place] and [place]. This disclosure is being madepursuant to the Care Everywhere program and may not contain all information available regarding this patient. Last updated 18.[facility] Allergies * Celecoxib(Itching) * Diclofenac-Misoprostol(Rash) -Medium Criticality * Diclofenac-Misoprostol(Other) * Nitrofurantoin(Rash) -Medium Criticality * Penicillins(Itching) -Low Criticality * Sertraline(Swelling) -Low Criticality Medications * Be aware that medications may not be up to date on this document. Alwaysverify current medications with the patient. * clonazePAM (KLONOPIN) 2 MG tablet Take by mouth at bedtime * Multiple Vitamins-Minerals (ONE-A-DAY 50 PLUS PO) * lamoTRIgine (LAMICTAL) 200 MG tablet(Started 03/01/2018) TK 1 T PO QAM AND 2 TS QHS 5 refills left * albuterol HFA (PROVENTIL;VENTOLIN;PROAIR) 108 (90 Base) MCG/ACT inhaler ProAir HFA 90 mcg/actuation aerosol inhaler INHALE 2 PUFFS PO QID PRF BREATHING * FLUoxetine (PROZAC) 10 MG tablet fluoxetine 10 mg tablet * meloxicam (MOBIC) 15 MG tablet meloxicam 15 mg tablet TK 1 T PO QD * estradiol (VAGIFEM) 10 MCG vaginal tablet(Started 04/26/2021) Insert 1 (one) tablet into the vagina every Friday & 11 refills by 04/24/2022 * Meth-Hyo-M Bl-Na Phos-Ph Aly (URIBEL) 118 MG(Started 04/30/2021) Take 1 (one) capsule by mouth 2 times daily as needed * Cholecalciferol (VITAMIN D) 50 MCG (1999 UT) capsule(Started 04/17/2021) Take 2,000 Units by mouth once daily * Linzess 145 MCG capsule(Started 10/15/2022) TAKE 1 CAPSULE BY MOUTH DAILY 30 MINUTES BEFORE FIRST MEAL OF THE DAY ON AN EMPTY STOMACH 11 refills by 10/15/2023 Active Problems Problem Noted Date Diagnosed Date Hip pain 08/17/2020 Knee pain 08/17/2020 Osteoarthritis of knee 08/17/2020 Recurrent UTI 02/24/2018 H/O hysterectomy for benign disease 01/06/2013 History of abnormal Pap smear 01/06/2013 Bipolar affective disorder 11/26/2011 Fibrocystic breast disease in female 11/26/2011 Social History Tobacco Use Types Packs/Day Years [...] Mass Index 33.83 07/05/2021 10:42 AM CDT Procedures * MAMMO BILAT SCREENING W HERIBERTO(Performed 07/23/2022) Performed for Visit for screening mammogram * CULTURE URINE COMPREHENSIVE(Performed 07/05/2021) Performed for Recurrent UTI * MAMMO BILAT SCREENING W HERIBERTO(Performed 07/05/2021) Performed for Visit for screening mammogram * WV INSERT NON-INDWELLING BLADDER(Performed 07/05/2021) Performed for Recurrent UTI * URINALYSIS AUTO - POINT OF CARE (AMB) [facility](Performed 07/05/2021) Performed for Recurrent UTI * WV INSERT NON-INDWELLING BLADDER(Performed 04/24/2021) Performed for Recurrent UTI * CULTURE URINE COMPREHENSIVE(Performed 04/24/2021) Performed for Recurrent UTI * URINALYSIS AUTO - POINT OF CARE (AMB) [facility](Performed 04/24/2021) Performed for Recurrent UTI * CULTURE URINE(Performed 12/12/2020) Performed for Acute cystitis without hematuria * CULTURE URINE(Performed 08/28/2020) Performed for Acute cystitis without hematuria * CULTURE URINE COMPREHENSIVE(Performed 08/17/2020) Performed for Recurrent UTI * WV INSERT NON-INDWELLING BLADDER(Performed 08/17/2020) Performed for Recurrent UTI * URINALYSIS AUTO - POINT OF CARE (AMB) [facility](Performed 08/17/2020) Performed for Recurrent UTI * MAMMO BILAT SCREENING(Performed 04/15/2019) Performed for Visit for screening mammogram * CULTURE URINE COMPREHENSIVE(Performed 02/27/2018) * CULTURE URINE COMPREHENSIVE(Performed 02/27/2018) Performed for Recurrent UTI * WV CYSTOURETHROSCOPY(Performed 02/24/2018) Performed for Recurrent UTI * MAMMO BILAT SCREENING(Performed 02/24/2018) Performed for Visit for screening mammogram * CULTURE URINE COMPREHENSIVE(Performed 12/05/2017) * URINALYSIS - POINT OF CARE (AMB) [facility](Performed 12/05/2017) * MAMMO BILAT SCREENING(Performed 02/04/2017) Performed for Visit for screening mammogram * URINALYSIS - POINT OF CARE (AMB) [facility](Performed 12/04/2016) * URINALYSIS W/MICROSCOPIC NO CULTURE(Performed 12/04/2016) * CULTURE URINE COMPREHENSIVE(Performed 12/04/2016) * DERMATOPATHOLOGY(Performed 03/18/2016) * MAMMO BILAT SCREENING(Performed 02/15/2016) Performed for Visit for screening mammogram * MAMMO BILAT DIAGNOSTIC(Performed 10/14/2014) Performed for Lump Or Mass In Breast * MAMMO BILAT SCREENING(Performed 01/12/2014) Performed for Other screening mammogram * MAMMO BILAT DIAGNOSTIC(Performed 01/06/2013) Performed for Mastodynia * PATHOLOGY/GENETICS HISTORICAL-ONBASE(Performed 01/06/2013) * PATHOLOGY/GENETICS HISTORICAL-ONBASE(Performed 01/06/2013) * CULTURE URINE COMPREHENSIVE(Performed 12/03/2011) * MAMMO BILAT SCREENING(Performed 12/02/2011) Performed for Other screening mammogram * PAP IG RFLX HPV ASCU(Performed 11/26/2011) * MAMMO BILAT DIAGNOSTIC(Performed 06/15/2010) Performed for Mastodynia * PATHOLOGY/GENETICS HISTORICAL-ONBASE(Performed 06/07/2010) * PAP SMEAR 1 SLIDE(Performed 11/28/2009) * LAB HISTORICAL RESULTS-ONBASE(Performed 11/28/2009) * LAB HISTORICAL RESULTS-ONBASE(Performed 11/28/2009) * URINALYSIS - POINT OF CARE (AMB) [facility](Performed 09/29/1998) * FUNGUS JACINTO - POINT OF CARE (AMB) [facility](Performed 09/29/1998) * WET PREP - POINT OF CARE (AMB) [facility](Performed 09/29/1998) * PH FLUID - POCT (AMB) [facility](Performed 09/29/1998) Results * MAMMO BILAT SCREENING W HERIBERTO (07/23/2022 12:02 PM CDT) Only the most recent of2 resultswithin the time period is included. Anatomical Region Laterality Modality Breast Bilateral Mammography [...] either breast. Monse Bass MD MAMMO ORDERABLES * (ABNORMAL) CULTURE URINE COMPREHENSIVE (07/05/2021 11:20 AM CDT) Only the most recent of8 resultswithin the time period is included. Culture (A) [facility] Comment: CULTURE, URINE, SPECIAL Micro Number: [id number] Test Status: Final Specimen Source: Urine Specimen Quality: Adequate Result: Greater than 100,000 CFU/mL of Escherichia coli E.coli INT ERIS AMOX/CLAVULANATE S 4 AMPICILLIN R >=32 AMP/SULBACTAM I 16 CEFAZOLIN NR <=4 2 CEFEPIME S <=1 CEFTRIAXONE S <=1 CIPROFLOXACIN S <=0.25 ERTAPENEM S <=0.5 GENTAMICIN S <=1 IMIPENEM S <=0.25 LEVOFLOXACIN S <=0.12 NITROFURANTOIN S <=16 PIP/TAZOBACTAM S <=4 TOBRAMYCIN S <=1 TRIMETHOPRIM/SULFA S <=20 S=Susceptible I=Intermediate R=Resistant * = Not Tested NR = Not Reported NN = See Therapy Comments THERAPY COMMENTS Note 1: For infections other than uncomplicated UTI caused by E. coli, K. pneumoniae or P. mirabilis: Cefazolin is resistant if ERIS > or = 8 mcg/mL. (Distinguishing susceptible versus intermediate for isolates with ERIS < or = 4 mcg/mL requires additional testing.) Note 2: For uncomplicated UTI caused by E. coli, K. pneumoniae or P. mirabilis: Cefazolin is susceptible if ERIS <32 mcg/mL and predicts susceptible to the oral agents cefaclor, cefdinir, cefpodoxime, cefprozil, cefuroxime, cephalexin and loracarbef. Test Performed at: [id number] [id number] BERYL BERNAL MD Microbiology URINE SPECIMEN COLLECTION, CATHETERIZED / Unknown 07/05/2021 11:20 AM CDT 07/06/2021 4:25 AM CDT Ivanna Ly MD LAB - MICROBIOLOGY O RDERABLES [facility] [address] [place] [address] * WV INSERT NON-INDWELLING BLADDER (07/05/2021 10:15 AM CDT) Narrative Ivanna Ly Che, MD - 07/05/2021 10:15 AM CDT Ivanna Ly Che, MD 07/05/2021 10:15 AM The patient was prepped with betadine (or with hibiclens or other antiseptic agent if allergic to topical iodine). She understood the rationale for the procedure and agreed to the procedure. A 14F short female catheter was then advanced into the urethra and urine was collected for bedside urinalysis as well as a urine culture and/or formal urinalysis as needed. The post void residual is as noted in the progress note, as are results of the dipstick taken. The patient tolerated the procedure well. Ivanna Ly MD PROCEDURE/MINOR SURG ICAL ORDERABLES * URINALYSIS AUTO - POINT OF CARE (AMB) [facility] (07/05/2021) Only the most recent of3 resultswithin the time period is included. Glucose UA neg Bilirubin UA POCT neg Ketones UA POCT neg Specific [place] UA 1.030 Blood Urine POCT neg pH UA 6.0 Protein UA neg Urobilinogen UA 0.2 Nitrite UA neg WBC UA neg Urine URINE / Unknown 07/05/2021 Ivanna Ly MD LAB - POINT OF CARE ORDERABLES * WV INSERT NON-INDWELLING BLADDER (04/24/2021 12:55 PM CDT) Narrative Ivanna Ly Che, MD - 04/24/2021 12:55 PM CDT Ivanna Ly Che, MD 04/24/2021 12:55 PM The patient was prepped with betadine (or with hibiclens or other antiseptic agent if allergic to topical iodine). She understood the rationale for the procedure and agreed to the procedure. A 14F short female catheter was then advanced into the urethra and urine was collected for bedside urinalysis as well as a urine culture and/or formal urinalysis as needed. The post void residual is as noted in the progress note, as are results of the dipstick taken. The patient tolerated the procedure well. Ivanna Ly MD PROCEDURE/MINOR SURG ICAL ORDERABLES * CULTURE URINE (12/12/2020 8:16 AM CDT) Only the most recent of2 resultswithin the time period is included. Culture [facility] Comment: CULTURE, URINE, ROUTINE Micro Number: [id number] Test Status: Final Specimen Source: URINE, CLEAN CATCH Specimen Quality: Adequate Result: No Growth Test Performed at: [email or web address] [id number] BERYL BERNAL MD Urine URINE SPECIMEN OBTAINED BY CLEAN CATCH PROCEDURE / Unknown 12/12/2020 8:16 AM CDT 12/12/2020 8:17 AM CDT Ivanna Ly MD LAB - MICROBIOLOGY O RDERABLES [address] [address] * WV INSERT NON-INDWELLING BLADDER (08/17/2020 10:03 AM MEDICAL OFFICE MANAGER) Narrative Ivanna Ly Che, MD - 08/17/2020 10:03 AM MEDICAL OFFICE MANAGER Ivanna Ly Che, MD 08/17/2020 10:22 AM The patient was prepped with betadine (or with hibiclens or other antiseptic agent if allergic to topical iodine). She understood the rationale for the procedure and agreed to the procedure. A 14F short female catheter was then advanced into the urethra and urine was collected for bedside urinalysis as well as a urine culture and/or formal urinalysis as needed. The post void residual is as noted in the progress note, as are results of the dipstick taken. The patient tolerated the procedure well. Ivanna Ly MD PROCEDURE/MINOR SURG ICAL ORDERABLES * PADMINI SCREENING DIGITAL IMAGE BILATERAL G0202 (04/15/2019 8:58 AM CDT) Only the most recent of6 resultswithin the time period is included. Anatomical Region Laterality Modality Breast Bilateral Mammography 04/15/2019 12:3 9 PM CDT Impressions 04/15/2019 12:40 PM CDT No mammographic evidence of malignancy in either breast. ASSESSMENT: BIRADS Category 1: Negative mammogram. RECOMMENDATION: Bilateral screening mammogram in one year. Thank you for allowing us to participate in the care of your patient. Reading Radiologist: Olga Tian MD on 04/15/2019 at 12:40 PM Narrative 04/15/2019 12:40 PM CDT EXAMINATION: Digital screening mammogram on 04/15/2019. Low-dose full-field digital breast tomosynthesis examination was performed with synthetic 2D images and 3D acquisitions. Computer assisted detection was utilized. PRIOR: Multiple prior mammograms, most recently 2018 BREAST PARENCHYMAL DENSITY: There are scattered areas of fibroglandular density. RISK ASSESSMENT CALCULATION: Not performed. FINDINGS: No suspicious masses, areas of architectural distortion or microcalcifications are evident on synthetic 2D mammogram or tomosynthesis images. There has been no significant interval change since the prior examination. Ivanna Ly MD MAMMO ORDERABLES * WV CYSTOURETHROSCOPY (02/24/2018 12:42 PM CDT) Narrative Ivanna Ly Che, MD - 02/24/2018 12:42 PM CDT Ivanna Ly Che, MD 02/24/2018 12:42 PM Cystoscopy Procedure Note Indications: hematuria and frequent bladder infections Procedure Details: The patient was counseled about the procedure including risks, benefits, alternatives, and given a detailed description of what to expect. Cystoscopy was performed with a rigid 70 degree cystoscopy with a 17F sheath under aseptic conditions. The urethra was cleaned with Betadine solution (unless she was allergic to topical iodine when hibiclens was used). A careful examination of all quadrants was performed in a systematic fashion. The patient tolerated the procedure well and was allowed to watch the examination on a video monitor. Urethral visualization was also done. Findings: She was found to have trabeculations only. Efflux was noted from the both ureteral orifice. Squamous metaplasia was noted. Urethra - no lesions. Condition: Good Complications: None Ivanna Ly MD PROCEDURE/MINOR SURG ICAL ORDERABLES * URINALYSIS - POINT OF CARE (AMB) [facility] (12/05/2017) Only the most recent of3 resultswithin the time period is included. Specific [place] UA 1.025 [facility] pH UA 5.0 [facility] WBC UA ++ [facility] Nitrite UA neg [facility] Protein UA neg [facility] Glucose UA neg [facility] Ketones UA POCT neg [facility] Urobilinogen UA neg [facility] Bilirubin UA POCT neg [facility] Blood Urine POCT ++ [facility] Urine specimen (specimen) 12/05/2017 Ivanna Ly MD LAB - POINT OF CARE ORDERABLES [address] * (ABNORMAL) URINALYSIS W/MICROSCOPIC NO CULTURE (12/04/2016) Color UA YELLOW YELLOW [facility]) Appearance CLEAR CLEAR [facility]) Specific [place] UA 1.017 1.001 - 1.035 [facility]) pH Urine 5.5 5.0 - 8.0 [facility]) Glucose UA NEGATIVE NEGATIVE [facility]) Bilirubin UA NEGATIVE NEGATIVE [facility]) Ketone UA NEGATIVE NEGATIVE [facility]) Blood UA 1+(A) NEGATIVE [facility]) Protein UA NEGATIVE NEGATIVE [facility] ([facility]) Nitrite UA NEGATIVE NEGATIVE [facility]) Leukocyte Esterase NEGATIVE NEGATIVE [facility] ([facility]) WBC Urine NONE SEEN < OR = 5 /HPF [facility]) RBC Urine 0-2 < OR = 2 /HPF [facility] ([facility]) Squamous Epithelial Cells UA NONE SEEN < OR = 5 /HPF [facility]) Bacteria UA NONE SEEN NONE SEEN /HPF [facility]) Hyaline Casts UA NONE SEEN NONE SEEN /LPF [facility] ([facility]) Comment: Test Performed at: [facility] [id number] [place] [address] KYLE CRUZ DO,MPH Urine specimen (specimen) URINE SPECIMEN COLLECTION, CATHETERIZED / Unknown 12/04/2016 12/05/2016 2:40 AM MEDICAL OFFICE MANAGER Ivanna Ly MD LAB - URINALYSIS ORD ERABLES Performing Organization Address [facility]/ZIP Co de Phone Number [facility]) * PATHOLOGY TISSUE FOR DERMATOLOGY (03/18/2016 12:00 AM CDT) Result CASE: [id number] PATIENT: KAYLA MASON PATHOLOGIC DIAGNOSIS: Left upper eyelid: ACTINIC KERATOSIS, ERODED PRESENT AT MARGIN CLINICAL DATA: R/O AK, non healing Check margins GROSS DESCRIPTION: Received is one formalin filled container labeled with the patients name and designated left upper eyelid. The specimen consists of a shave measuring [id number], inked. Jar 0. MICROSCOPIC DESCRIPTION: Along the undersurface of the epidermis, there are buds of atypical keratinocytes in a disorderly arrangement. There is alternating orthokeratosis and parakeratosis. The epidermis is eroded. Lesion is present at the margin of the specimen. Electronically signed out by Yohana Crawford M.D. 03/20/2016 1:58:07PM [facility] D[facility] Comment: Performed at: Dermatopathology Laboratory [facility] - Department of Dermatology [address] [place] [address] [place] [address] Phone number: [phone] FAX: [phone] 03/18/2016 03/19/2016 Kourtney Payne MD LAB - PATHOLOGY/CYT OLOGY ORDERABLES Performing Organization Address [facility] Co de Phone Number [facility] DER[facility] [address] [place] [address]. [address] [place] [address] * PADMINI DIAG DIRECT DIG IMAGE BILATERAL G0204 (10/14/2014 11:21 AM MEDICAL OFFICE MANAGER) Only the most recent of3 resultswithin the time period is included. Anatomical Region Laterality Modality Bilateral Mammography 10/14/2014 11:3 0 AM MEDICAL OFFICE MANAGER Narrative 10/14/2014 11:34 AM MEDICAL OFFICE MANAGER EXAMINATION: Bilateral digital diagnostic mammogram on 10/14/2014.. INDICATION: Palpable abnormality right breast. Routine mammogram left breast. FINDINGS: Computer assisted detection was utilized. The tissue density is average with scattered fibroglandular densities. 3 views of each breast are obtained including a spot compression image of the left breast at the superior aspect. A marker is also placed over at the right breast medially at the area of clinical concern. There is no discrete abnormality seen in the right breast near the marker. There is no discrete mass, suspicious abnormality or significant new finding in either breast since the prior mammograms. ASSESSMENT: BIRADS Category 1: Negative mammogram. RECOMMENDATION: Bilateral screening mammogram in one year. Ivy Feldman RN MAMMO ORDERABLES * PATHOLOGY/GENETICS HISTORICAL-ONBASE (01/06/2013) Only the most recent of3 resultswithin the time period is included. 01/06/2013 Narrative [facility] - 01/13/2013 1:45 PM CDT Historical Provider LAB - CHEMISTRY O RDERABLES Performing Organization Address [facility] Co de Phone Number [facility] [address] * PAP IG RFLX HPV ASCU (11/26/2011) 11/26/2011 Historical Provider LAB - PATHOLOGY/C YTOLOGY ORDERABLES Performing Organization Address [facility] Co de Phone Number [facility] * LAB HISTORICAL RESULTS-ONBASE (11/28/2009) Only the most recent of2 resultswithin the time period is included. 11/28/2009 Historical Provider LAB - CHEMISTRY O RDERABLES Performing Organization Address [facility] Co de Phone Number [facility] * PAP SMEAR 1 SLIDE (11/28/2009) Other (qualifier value) 11/28/2009 Narrative [facility] - 12/25/2009 10:46 AM CDT This external order was created through the Results Console. Historical Provider LAB - PATHOLOGY/C YTOLOGY ORDERABLES Performing Organization Address [facility] Co de Phone Number [facility] * PH FLUID - POCT (AMB) [facility] (09/29/1998 12:00 AM MEDICAL OFFICE MANAGER) pH Vaginal 5.0 [facility] Vaginal swab (specimen) 09/29/1998 Historical Provider MD LAB - POINT OF CA RE ORDERABLES [facility] * WET PREP - POINT OF CARE (AMB) [facility] (09/29/1998 12:00 AM MEDICAL OFFICE MANAGER) pH Wet Prep 5.0 [facility] Yeast Wet Prep +hyphae [facility] Trichomonas Wet Prep neg [facility] Bacteria Wet Prep neg;+LB [facility] Whiff Test neg [facility] 09/29/1998 Historical Provider MD LAB - POINT OF CA RE ORDERABLES Performing Organization Address [facility]/ZIP Co de Phone Number [facility] * FUNGUS JACINTO - POINT OF CARE (AMB) U (09/29/1998 12:00 AM MEDICAL OFFICE MANAGER) JACINTO Prep + hyphae [facility] Fluid specimen (specimen) 09/29/1998 Historical Provider MD LAB - POINT OF CA RE ORDERABLES Performing Organization Address City/[facility]/ZIP Co de Phone Number [facility] Care Teams Material Handling Supervisor Relationship Specialty Start Date End Date Ivy Feldman RN PCP - OBGYN Nurse Practitioner 01/06/13 Torin Hercules DO [address] [place] [id number] PCP - General 04/23/21
--- OUTSIDE RECORDS SUMMARY | 2024-11-05 08:48 | XMS_ITS ---
Author Organization [facility] Address [address] [place] [address] Care Team Providers Care Pharmacy Service Associate Name Role Phone Augusto Cai Unavailable [phone] Stefanie David Unavailable [phone] Social History Sex Assigned At : Social History Observation Description Sex Assigned At Female Encounters Encounter Location Date Provider Diagnosis [facility] [address] [place] [address] 02/24/2024 Stefanie Hugo Plan Of Treatment No Information Progress Notes * ANH MASONOB: 4 (59 yo F)Acc No.[id number]:02/24/2024 Patient: ANGELES RODRIGUEZ Provider: Edgardo HUGO LCSW :1965 A ge:58 Y S ex:Female Date:02/24/2024 Address:[address] [place], [place] [id number] Subjective: * Chief Complaints: * * Medical History: Objective: * Vitals: Assessment: Plan: * Treatment: * Billing Information: * Visit Code: * Procedure Codes: * Electronic signature of Alyse Hugo LCSW on 11/05/2024 at 08:48 AM RETAIL MANAGEMENT KEYHOLDER Sign off status: Pending * Provider: Edgardo HUGO LCSW Date: 0 02/24/2024 Generated for Keith obrien/Alba/eTransmitting on: 0 11/05/2024 08:48 AM RETAIL MANAGEMENT KEYHOLDER
--- OUTSIDE RECORDS SUMMARY | 2024-11-05 08:48 | XMS_ITS ---
Author Organization [facility] Address [address] 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 Name Role Phone Augusto Cai Unavailable [phone] Allergies Allergen (clinical drug ingredient) Drug/Non Drug Allergy documented on EMR Reaction Allergy Type Onset Date Status penicillin V PENICILLIN V (uncoded) Unknown Allergy 11/11/2023 Active ciprofloxacin Cipro Unknown Drug Allergy 11/11/2023 Ac tive nitrofurantoin, macrocrystals / nitrofurantoin, monohydrate Macrobid Unknown Drug Allergy 11/11/2023 Active codeine Codeine Unknown Drug Allergy 11/11/2023 Active REASON FOR VISIT follow up visit, medication evaluation Medications Medication SIG (Take, Route, Frequency, Duration) Notes Start Date End Date Status clonazePAM 1 MG 1 tablet Oral Once a day for 30 days 07/06/2024 Active lamoTRIgine 200 MG 1 tablet Oral twice a day for 30 days Active Linzess 145 MCG Oral 11/11/2023 Act rosario Estradiol 0.01 % (0.1 mg/gram) Vaginal *Pick strength-form from [employer] for eRX* 11/11/2023 Active Diclofenac Sodium 1% Transdermal 11/11/2023 Active Sulfamethoxazole-Tri methoprim 800-160 MG Oral 11/11/2023 Active Omeprazole 20 MG Oral 11/11/2023 Ac tive Famotidine 20 MG Oral 11/11/2023 Ac tive GEMTESA 75 MG TABLET *Reorder fr [facility] [employer] for eRx and Interaction Alerts* 11/11/2023 Active Social History Tobacco Use: Social History Observation Description Date Details (start date - stop date) Never Smoker NA - NA Sex Assigned At : Social History Observation Description Sex Assigned At Female Tobacco Control (Standard) Question Answer Notes Tobacco use: Nonsmoker Problems Problem Type SNOMED Code ICD Code Onset Dates Problem Status W/U Status Risk Notes Problem Generalized anxiety disorder (72817951) Generalized anxiety disorder (F41.1) 4 Active confirmed Problem Bipolar I disorder, most recent episode mixed, in remission (32672335) Bipolar disorder, currently in remission, most recent episode unspecified (F31.70) 4 Active confirmed Vital Signs Blood pressure systolic 104 mm Hg 07/06/20 24 Blood pressure diastolic 70 mm Hg 024 Height 67.00 in 07/06/2024 Weight 180.4 lbs 07/06/2024 BMI 28.25 kg/m2 07/06/2024 Height-cm 170.18 cm 07/06/2024 Weight-kg 81.83 kg 07/06/2024 Encounters Encounter Location Date Provider Diagnosis [facility] [address] 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 Plan: - Schedule a follow-up appointment closer to the paperwork deadline to discuss and assist with the process - Review the patient's medical history and current status to ensure accurate documentation for disability determination Plan Of Treatment Medication Medication Name Sig Start Date Stop Date Notes clonazePAM 1 MG 1 tablet Oral Once a day for 30 days 07/06 lamoTRIgine 200 MG 1 tablet Oral twice a day for 30 days Treatment Notes Assessment Notes Bipolar disorder, currently in remission, most recent episode unspecified lamotrigine + estradiol (hormone replacement) consider incr. lamotrigine maint. dose 2-fold, initial dose escalation unchanged; no change if also on carbamazepine, phenytoin, phenobarbital, primidone or rifampin: combo may decr. lamotrigine levels by 50% (UGT induced) Next Appt Details Follow Up: 4 Months, Reason: f/u bipolar d/o Progress Notes * ANH MASONOB: 4 (58 yo F)Acc No.[id number]:07/06/2024 Patient: ANGELES RODRIGUEZ Provider: LIGIA GONZALEZ :1965 A ge:58 Y S ex:Female Date:07/06/2024 Address:[address] [place], [place] [id number] Subjective: * Chief Complaints: * F ollow up visit, medication evaluation * HPI: D epression Screening: Chief complaint- Frustration due to multiple stressors. the note is transcribed using speech recognition software. It is a reflection of a visit with the patient. It might have some inaccuracy, including medication names and transcribing errors, though efforts have been made to correct them. The patient reports feeling frustrated lately due to multiple stressors in her life. She is awaiting knee surgery but has not yet received a date for the procedure as she did not pass her EKG. The patient is scheduled for a stress test on Friday and is concerned about the possibility of a blockage. She is also dealing with a remodeling project in her bathroom, which has led to tension between her and her . The patient expresses concern for her grandson, who recently experienced a breakup and a car accident. She is frustrated with the handling of the accident by her grandson's stepfather and the financial burden it has placed on her family. The patient feels a lack of control in these situations and is trying to support her grandson while maintaining her own mental health. The patient reports that her mood is stable overall but is affected by situational stressors. She has been experiencing some sleep disturbances due to stress and a recent urinary tract infection (UTI). The patient is undergoing pelvic floor therapy. The patient is currently taking lamotrigine 200 mg twice a day and clonazepam 1 mg once a day. She recently switched from Ozempic to Wegovy, which caused double vision. The patient has lost 43 pounds since starting Ozempic and would like to continue losing weight. 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 MILADY-7 (2018 Edition) N ot being able to stop or control worrying M ore than half the days, W orrying too much about different things M ore than hafl the days, T rouble relaxing S ever, B eing so restless that it is hard to sit still S ever, B ecoming easily annoyed or irritable S ever, F eeling afraid as if something awful might happen S , I f you checked any problems, how difficult have they made it for you to do your work, take care of things at home, or get along with other people? N ot difficult at all. [place]-Suicide Severity Rating Scale: Suicide Risk (CSRS-screener) i n the past one month Have you wished you were or wished you could go to sleep and not wake up? N o, i n the past one month Have you actually had any thoughts of killing yourself? N o. D epression screening: PHQ-9 L ittle interest or pleasure in doing things S , F eeling down, depressed, or hopeless S , T rouble falling or staying asleep, or sleeping too much N ot at all, F eeling tired or having little energy S , P oor appetite or overeating N ot at all, F eeling bad about yourself or that you are a failure, or have let yourself or your family down S , T rouble concentrating on things, such as reading the newspaper or watching television S , M oving or speaking so slowly that other people could have noticed; or the opposite, being so fidgety or restless that you have been moving around a lot more than usual N ot at all, T houghts that you would be better off or of hurting yourself in some way N ot at all, T otal Score 5, I nterpretation M ild Depression. I ntervention D epression Screening Findings?Negative, F ollow-Up for Depression M ental health care management, S uicide Risk Assessment Performed , A dditional Evaluation for Depression P sychiatric interview and evaluation, N zaina of the standardized tool used for adult depression screening: P atient Health Questionnaire (PHQ-9). C ontributing Factors: she is on disability for [employer], reports she needs paperwork completed every 3 years for it. * Medical History: * Surgical History: * Hospitalization/Major Diagno stic Procedure: * Social History: T obacco Use: T obacco Control (Standard) T obacco use: N onsmoker. M igrated Social History: M igrated Social History: Alcohol Intake: None 12/12/2022,Tobacco Years: Never smoker 12/12/2022. * Medications: T akinglamoTRIgine 200 MG Tablet 1 tablet every morning 2 tablet every evening Oral as directed clonazePAM 1 MG Tablet 1 tablet Oral Once a day GEMTESA 75 MG TABLET , Notes to Pharmacist: *Reorder from [facility] for eRx and Interaction Alerts*Estradiol 0.01 % (0.1 mg/gram) Cream Vaginal , Notes to Pharmacist: *Pick strength-form from [facility] for eRX*Diclofenac Sodium 1% Gel Transdermal Omeprazole 20 MG Capsule Delayed Release Oral Sulfamethoxazole-Trimethoprim 800-160 MG Tablet Oral Famotidine 20 MG Tablet Oral Linzess 145 MCG Capsule Oral Taking lamoTRIgine 200 MG Tablet 1 tablet every morning 2 tablet every evening Oral as directed Taking clonazePAM 1 MG Tablet 1 tablet Oral Once a day Taking GEMTESA 75 MG TABLET , Notes to Pharmacist: *Reorder from [facility] for eRx and Interaction Alerts*Taking Estradiol 0.01 % (0.1 mg/gram) Cream Vaginal , Notes to Pharmacist: *Pick strength-form from [facility] for eRX*Taking Diclofenac Sodium 1% Gel Transdermal Taking Omeprazole 20 MG Capsule Delayed Release Oral Taking Sulfamethoxazole-Trimethoprim 800-160 MG Tablet Oral Taking Famotidine 20 MG Tablet Oral Taking Linzess 145 MCG Capsule Oral DiscontinuedVagifem 10 mcg Tablet Vaginal Cefdinir 300 MG Capsule Oral Linzess 72 mcg Capsule Oral Celecoxib 200 MG Capsule Oral Trimethoprim 100 MG Tablet Oral FOSFOMYCIN TROMETHAMINE 3 GRAM ORAL PACKET , Notes to Pharmacist: *Reorder from [facility] for eRx and Interaction Alerts*clonazePAM 2 MG Tablet Oral Medication List reviewed and reconciled with the patientDiscontinued Vagifem 10 mcg Tablet Vaginal Discontinued Cefdinir 300 MG Capsule Oral Discontinued Linzess 72 mcg Capsule Oral Discontinued Celecoxib 200 MG Capsule Oral Discontinued Trimethoprim 100 MG Tablet Oral Discontinued FOSFOMYCIN TROMETHAMINE 3 GRAM ORAL PACKET , Notes to Pharmacist: *Reorder from [facility] for eRx and Interaction Alerts*Discontinued clonazePAM 2 MG Tablet Oral Medication List reviewed and reconciled with the patient * Allergies: P ENICILLIN V: Allergy - Onset Date 11/11/2023ipro: Allergy - Onset Date 11/11/2023Macrobid: Allergy - Onset Date 11/11/2023odeine: Allergy - Onset Date 11/11/2023no[Allergies Verified] Objective: * Vitals: B P:104/70mm Hg, Wt:180.4lbs, Wt-k.83 kg, Ht: 67.00 in, Ht-cm: 170.18 cm, BMI:28.25Index, Body Surface Area: 1.96. * Examination: P sychiatry: Appearance: w ell-groomed, [...] content: a ppropriate. Thought process: i ntact. G eneral Examination: - Mental Status Examination: - Patient expressed feelings of frustration related to personal and family issues. - Described situational mood disturbances linked to external stressors. - No overt signs of anxiety or depression observed during the visit. - Cognitive functions appear intact with coherent speech and appropriate thought content. - Physical Examination: - General: Patient is alert and oriented, ambulatory with reported need for knee surgery. - Musculoskeletal: Reports pending knee surgery. - Neurological: No focal deficits observed; patient is coherent with normal speech. Assessment: * Assessment: 1. G eneralized anxiety disorder - F41.1 (Primary) 2 . B ipolar disorder, currently in remission, most recent episode unspecified - F31.70 1. Anxiety and situational s tress- The patient reports increased stress and frustration due to family issues and home remodeling. Mood appears to be stable overall, but situational stressors are impacting her well-being.Plan:- Continue lamotrigine 200 mg twice daily- Continue clonazepam 1 mg once daily- Encourage the patient to maintain open communication with family members and utilize her support system- Consider referral to therapy or support groups if stress levels do not improve2. Sleep disturbances- The patient reports occasional sleepless nights due to stress and frequent urination caused by a possible UTI or bladder infection.Plan:- Encourage the patient to maintain good sleep hygiene- Evaluate and treat the possible UTI or bladder infection (see below)- Monitor sleep patterns and consider sleep aids if necessary3. 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 B ipolar disorder, currently in remission, most recent episode unspecified Refill lamoTRIgine Tablet, 200 MG, 1 tablet, Oral, twice a day, 30 days, 90 Tablet, Refills 1. Notes: lamotrigine + estradiol (hormone replacement) consider incr. lamotrigine maint. dose 2-fold, initial dose escalation unchanged; no change if also on carbamazepine, phenytoin, phenobarbital, primidone or rifampin: combo may decr. lamotrigine levels by 50% (UGT induced) * Procedure Codes: 9 6127 BEHAV ASSMT W/SCORE & DOCD/STAND [id number] VISIT COMPLEXITY INHERENT TO ONGOING CARE RELATED TO A PATIENT'S SINGLE, SERIOUS CONDITION OR A COMPLEX CONDITION * Follow Up: 4 Months (Reason: f/u bipolar d/o) * Billing Information: * Visit Code: 25064 OFFICE OUTPATIENT VISIT 25 MINUTES DETAILED HISTORY AND EXAM/MODERATE MEDICAL DECISION MAKING. * Procedure Codes: 52302 BEHAV ASSMT W/SCORE & DOCD/STAND INSTRUMENT. G2211 VISIT COMPLEXITY INHERENT TO ONGOING CARE RELATED TO A PATIENT'S SINGLE, SERIOUS CONDITION OR A COMPLEX CONDITION. 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 for it Depression screening PHQ-9 Little inte rest or pleasure in doing things: Several days Feeling down, depressed, or hopeless: Se veral days Trouble falling or staying asleep, or sl eeping too much: Not at all Feeling tired or having little energy: S everal days Poor appetite or overeating: Not at all Feeling bad about yourself o r that you are a failure, or have let yourself or your family down: Several days Trouble concentrating on thi ngs, such as reading the newspaper or watching television: Several days Moving or speaking so slowly that other people could have noticed; or the opposite, being so fidgety or restless that you have been moving around a lot more than usual: Not at all Thoughts that you would be b adan off or of hurting yourself in some way: Not at all Total Score: 5 Interpretation: Mild Depression Intervention Depression Screening Findings: N egative Follow-Up for Depression: Mental health care management Suicide Risk Assessment Performed: ____ Additional Evaluation for Depression: Ps ychiatric interview and evaluation Name of the standardized too l used for adult depression screening:: Patient Health Questionnaire (PHQ-9) Depression Screening MILADY-7 (2018 Edition) Not be ing able to stop or control worrying: More than half the days Worrying too much about different things : More than hafl the days Trouble relaxing: Several days Being so restless that it is hard to sit still: Several days Becoming easily annoyed or irritable: Se veral days Feeling afraid as if something awful kristopher ht happen: Several days If you checked any problems, how difficult have they made it for you to do your work, take care of things at home, or get along with other people?: Not difficult at all [place]-Suicide Severity Rating Scale Suicide Risk (CSRS-screener) in the past one month Have you wished you were or wished you could go to sleep and not wake up?: No in the past one month Have y ou actually had any thoughts of killing yourself?: No Examination Category Sub-Category Detail Notes Category Not [...] no impairment noted Delusions: no Hallucinations: no General Examination - Mental Status Examination: - Patient expressed feelings of frustration related to personal and family issues. - Described situational mood disturbances linked to external stressors. - No overt signs of anxiety or depression observed during the visit. - Cognitive functions appear intact with coherent speech and appropriate thought content. - Physical Examination: - General: Patient is alert and oriented, ambulatory with reported need for knee surgery. - Musculoskeletal: Reports pending knee surgery. - Neurological: No focal deficits observed; patient is coherent with normal speech.
[2024-11-05 14:49] LABS: Amylase 70 U/L (30-110); CRP < 0.5 mg/dL (<1.0); Lipase 48 U/L (23-300)
[2024-11-05 16:56] LABS: Erythrocyte Sedimentation Rate 7 mm/hr (0-20)
[2024-11-10 03:23] LABS: Tissue Transglutaminase IgA Ab 19.9 U/mL; Tissue Transglutaminase IgG Ab <1.0 U/mL
== END 2024-11-05 08:39 | disposition home or self-care (01) ==
LOC: ANHGOSHLAB 08:40
PROVIDERS: PCP Family Medicine; Visit Provider Nurse Practitioner Family
DX: R63.4 Abnormal weight loss (principal); R79.89 Other specified abnormal findings of blood chemistry
CPT/HCPCS: 36415; 82150; 83690; 85652; 86140; 86364

== ENCOUNTER 2024-11-05 10:32 | Outpatient (CLI) | payer OTHER, SELFPAY ==
--- OUTSIDE RECORDS SUMMARY | 2024-11-05 11:16 | XMS_ITS | Patient Health Summary ---
Author Organization [facility] Address [address] [place] [address] Care Team Providers Care Key Maker Name Role Phone Ivy Feldman RN Unavailable Unavailable Torin Hercules DO Primary Care Provider [phone] Note from [facility],non-owned Affiliates and Associated Physician Practices is amultiple site organization consisting of ambulatory clinics and hospital sitesin [place], [place], [place] and [place]. This disclosure is being madepursuant to the Care Everywhere program and may not contain all information available regarding this patient. Last updated 18.[facility] Allergies * Celecoxib(Itching) * Diclofenac-Misoprostol(Rash) -Medium Criticality [...] Performed for Visit for screening mammogram * MS INSERT NON-INDWELLING BLADDER(Performed 07/05/2021) Performed for Recurrent UTI * URINALYSIS AUTO - POINT OF CARE (AMB) [facility](Performed 07/05/2021) Performed for Recurrent UTI * MS INSERT NON-INDWELLING BLADDER(Performed 04/24/2021) Performed for Recurrent UTI * CULTURE URINE COMPREHENSIVE(Performed 04/24/2021) Performed for Recurrent UTI * URINALYSIS AUTO - POINT OF CARE (AMB) [facility](Performed 04/24/2021) Performed for Recurrent UTI * CULTURE URINE(Performed 12/12/2020) Performed for Acute cystitis without hematuria * CULTURE URINE(Performed 08/28/2020) Performed for Acute cystitis without hematuria * CULTURE URINE COMPREHENSIVE(Performed 08/17/2020) Performed for Recurrent UTI * MS INSERT NON-INDWELLING BLADDER(Performed 08/17/2020) Performed for Recurrent UTI * URINALYSIS AUTO - POINT OF CARE (AMB) [facility](Performed 08/17/2020) Performed for Recurrent UTI * MAMMO BILAT SCREENING(Performed 04/15/2019) Performed for Visit for screening mammogram * CULTURE URINE COMPREHENSIVE(Performed 02/27/2018) * CULTURE URINE COMPREHENSIVE(Performed 02/27/2018) Performed for Recurrent UTI * MS CYSTOURETHROSCOPY(Performed 02/24/2018) Performed for Recurrent UTI * [...] [facility] Comment: CULTURE, URINE, SPECIAL Micro Number: [id number] Test Status: Final Specimen Source: Urine Specimen [...] cefuroxime, cephalexin and loracarbef. Test Performed at: [email or web address] [address] BERYL BERNAL MD Microbiology URINE SPECIMEN COLLECTION, CATHETERIZED / Unknown 07/05/2021 11:20 AM CDT 07/06/2021 4:25 AM CDT Ivanna Ly MD LAB - MICROBIOLOGY O RDERABLES [facility] [address] [place] [address] * MS INSERT NON-INDWELLING BLADDER (07/05/2021 10:15 AM CDT) [...] POCT neg Ketones UA POCT neg Specific [place] UA 1.030 Blood Urine POCT neg pH UA 6.0 Protein UA neg Urobilinogen UA 0.2 Nitrite UA neg WBC UA neg Urine URINE / Unknown 07/05/2021 Ivanna Ly MD LAB - POINT OF CARE ORDERABLES * MS INSERT NON-INDWELLING BLADDER (04/24/2021 12:55 PM CDT) [...] [facility] Comment: CULTURE, URINE, ROUTINE Micro Number: [id number] Test Status: Final Specimen Source: URINE, CLEAN CATCH Specimen Quality: Adequate Result: No Growth Test Performed at: [email or web address] [address] BERYL BERNAL MD Urine URINE SPECIMEN OBTAINED BY CLEAN CATCH PROCEDURE / Unknown 12/12/2020 8:16 AM CDT 12/12/2020 8:17 AM CDT Ivanna Ly MD LAB - MICROBIOLOGY O RDERABLES [address] [address] * MS INSERT NON-INDWELLING BLADDER (08/17/2020 10:03 AM FEEDER CATCHER) Narrative Ivanna Ly Che, MD - 08/17/2020 10:03 AM FEEDER CATCHER Ivanna Ly Che, MD 08/17/2020 10:22 AM [...] examination. Ivanna Ly MD MAMMO ORDERABLES * MS CYSTOURETHROSCOPY (02/24/2018 12:42 PM CDT) Narrative Ivanna [...] resultswithin the time period is included. Specific [place] UA 1.025 [facility] pH UA 5.0 [facility] WBC UA ++ [facility] Nitrite UA neg [facility] Protein UA neg [facility] Glucose UA neg [facility] Ketones UA POCT neg [facility] Urobilinogen UA neg [facility] Bilirubin UA POCT neg [facility] Blood Urine POCT ++ [facility] Urine specimen (specimen) 12/05/2017 Ivanna Ly MD LAB - POINT OF CARE ORDERABLES [address] * (ABNORMAL) URINALYSIS W/MICROSCOPIC NO CULTURE (12/04/2016) Color UA YELLOW YELLOW [facility]) Appearance CLEAR CLEAR [facility]) Specific [place] UA 1.017 1.001 - 1.035 [facility] ([facility]) pH Urine 5.5 5.0 - 8.0 [facility] ([facility]) Glucose UA NEGATIVE NEGATIVE [facility] ([facility]) Bilirubin UA NEGATIVE NEGATIVE [facility] ([facility]) Ketone UA NEGATIVE NEGATIVE [facility] ([facility]) Blood UA 1+(A) NEGATIVE [facility] ([facility]) Protein UA NEGATIVE NEGATIVE [facility] ([facility]) Nitrite [...] UA NONE SEEN NONE SEEN /LPF [facility] ([facility]) Comment: Test Performed at: [employer] [id number] [place] [address] KYLE CRUZ DO,MPH Urine specimen (specimen) URINE SPECIMEN COLLECTION, CATHETERIZED / Unknown 12/04/2016 12/05/2016 2:40 AM FEEDER CATCHER Ivanna Ly MD LAB - URINALYSIS ORD ERABLES Performing Organization Address [facility]/ZIP Co de Phone Number [facility] ([facility]) * PATHOLOGY TISSUE FOR DERMATOLOGY (03/18/2016 12:00 AM CDT) Result CASE: [id number] PATIENT: KAYLA MASON PATHOLOGIC DIAGNOSIS: Left upper eyelid: ACTINIC KERATOSIS, ERODED PRESENT AT MARGIN CLINICAL DATA: R/O AK, non healing Check margins GROSS DESCRIPTION: Received is one formalin filled container labeled with the patients name and designated left upper eyelid. The specimen consists of a shave measuring [id number], inked. Jar 0. MICROSCOPIC DESCRIPTION: Along the undersurface of the epidermis, there are buds of atypical keratinocytes in a disorderly arrangement. There is alternating orthokeratosis and parakeratosis. The epidermis is eroded. Lesion is present at the margin of the specimen. Electronically signed out by Yohana Crawford M.D. 03/20/2016 1:58:07PM [facility] Comment: Performed at: Dermatopathology Laboratory [facility] - Department of Dermatology [address] [place] [address] [place] [address] Phone number: [phone] FAX: [phone] 03/18/2016 03/19/2016 Kourtney Payne MD LAB - PATHOLOGY/CYT OLOGY ORDERABLES Performing Organization Address [facility] Co de Phone Number [facility] [address] [place] [address]. [address] [place] [address] * PADMINI DIAG DIRECT DIG IMAGE BILATERAL [id number] (10/14/2014 11:21 AM FEEDER CATCHER) Only the most recent of3 resultswithin the time period is included. Anatomical Region Laterality Modality Bilateral Mammography 10/14/2014 11:3 0 AM FEEDER CATCHER Narrative 10/14/2014 11:34 AM FEEDER CATCHER EXAMINATION: Bilateral digital diagnostic mammogram on 10/14/2014.. [...] the time period is included. 01/06/2013 Narrative [facility] - 01/13/2013 1:45 PM CDT Historical Provider LAB - CHEMISTRY O RDERABLES Performing Organization Address [facility] Co de Phone Number [facility] [address] * PAP IG RFLX HPV ASCU (11/26/2011) 11/26/2011 Historical Provider LAB - PATHOLOGY/C YTOLOGY ORDERABLES Performing Organization Address [facility] Co de Phone Number [facility] * LAB HISTORICAL RESULTS-ONBASE (11/28/2009) Only the most recent of2 resultswithin the time period is included. 11/28/2009 Historical Provider LAB - CHEMISTRY O RDERABLES Performing Organization Address [facility] Co de Phone Number [facility] * PAP SMEAR 1 SLIDE (11/28/2009) Other (qualifier value) 11/28/2009 Narrative [facility] - 12/25/2009 10:46 AM CDT This external order was created through the Results Console. Historical Provider LAB - PATHOLOGY/C YTOLOGY ORDERABLES Performing Organization Address [facility] Co de Phone Number [facility] * PH FLUID - POCT (AMB) [facility] (09/29/1998 12:00 AM FEEDER CATCHER) pH Vaginal 5.0 [facility] Vaginal swab (specimen) 09/29/1998 Historical Provider MD LAB - POINT OF CA RE ORDERABLES [facility] * WET PREP - POINT OF CARE (AMB) [facility] (09/29/1998 12:00 AM FEEDER CATCHER) pH Wet Prep 5.[address] [facility] Yeast Wet Prep +hyphae [facility] Trichomonas Wet Prep neg [facility] Bacteria Wet Prep neg;+LB [facility] Whiff Test neg [facility] 09/29/1998 Historical Provider MD LAB - POINT OF CA RE ORDERABLES Performing Organization Address [facility]/ZIP Co de Phone Number [facility] * FUNGUS JACINTO - POINT OF CARE (AMB) U (09/29/1998 12:00 AM FEEDER CATCHER) JACINTO Prep + hyphae [facility] Fluid specimen (specimen) 09/29/1998 Historical Provider MD LAB - POINT OF CA RE ORDERABLES Performing Organization Address City/[facility]/ZIP Co de Phone Number [facility] Care Teams Key Maker Relationship Specialty Start Date End Date Ivy Feldman RN PCP - OBGYN Nurse Practitioner 01/06/13 Torin Hercules DO [address] [place] [address] PCP - General 04/23/21
--- OUTSIDE RECORDS SUMMARY | 2024-11-05 11:16 | XMS_ITS | Referral Summary ---
Author Organization [facility] Address [address] [facility] [place] [address] Care Team Providers Care Literature Teacher Name Role Phone Ivy Feldman RN Unavailable Unavailable Torin Hercules DO Primary Care Provider [phone] Source Comments [facility],non-owned Affiliates and Associated Physician Practices is amultiple site organization consisting of ambulatory clinics and hospital sitesin [place], [place], [place] and [place]. This disclosure is being madepursuant to the Care Everywhere program and may not contain all information available regarding this patient. Last updated 18.[facility] [employer] Allergies Active Allergy Reactions Criticality Noted Date [...] female 11/26/2011 Overview (04/02/2018): Overview: Mamms @ [facility] 12/2013 negative 09/2014 [facility] Dx Mamm negative [...] Recently Relevant to Health Maintenance Care Teams Literature Teacher Relationship Specialty Start Date End Date Ivy Feldman RN PCP - OBGYN Nurse Practitioner 01/06/13 Torin Hercules DO [address] [place], [place] [id number] PCP - General 04/23/21
--- OUTSIDE RECORDS SUMMARY | 2024-11-05 11:16 | XMS_ITS | Clinical Summary ---
Author Organization [facility] Address [address] [place] [address] Care Team Providers Care Director Market Research Name Role Phone Ivy Feldman RN Unavailable Unavailable Torin Hercules DO Primary Care Provider [phone] Source Comments [facility],non-owned Affiliates and Associated Physician Practices is amultiple site organization consisting of ambulatory clinics and hospital sitesin [place], [place], [place] and [place]. This disclosure is being madepursuant to the Care Everywhere program and may not contain all information available regarding this patient. Last updated 18.[facility] [employer] Allergies Active Allergy Reactions Criticality Noted Date [...] female 11/26/2011 Overview (04/02/2018): Overview: Mamms @ [facility] 12/2013 negative 09/2014 TREE Dx Mamm negative [...] Maintenance Results * MAMMO BILAT SCREENING W HEIRBERTO (07/23/2022 12:02 PM CDT) Anatomical Region Laterality [...] Recently Relevant to Health Maintenance Care Teams Director Market Research Relationship Specialty Start Date End Date Ivy Feldman RN PCP - OBGYN Nurse Practitioner 01/06/13 Torin Hercules DO [address] [place] [address] PCP - General 04/23/21
[2024-11-05 13:02] LABS: IFOB Positive Control Positive; Immunochemical Fecal Occult Bl Positive (N)
[2024-11-09 03:44] LABS: Fecal Fat, Ql NORMAL (NORMAL)
[2024-11-11 01:38] LABS: Pancreatic Elastase, Stool 548 mcg/g (>200)
== END 2024-11-05 10:33 | disposition home or self-care (01) ==
LOC: ANHLAB 10:33
PROVIDERS: PCP Family Medicine; Visit Provider Nurse Practitioner Family
DX: R63.4 Abnormal weight loss (principal); R79.89 Other specified abnormal findings of blood chemistry
CPT/HCPCS: 82274; 82653; 82705; 83993

== ENCOUNTER 2024-11-24 11:42 | Outpatient (CLI) | payer OTHER, SELFPAY ==
--- NOTE | ~2024-11-24 | DEXA_ITS ---
Bone Density Report Name: ANGELES MASON Age: 59 Sex: Female Ethnicity: White Date of : 1965 Indication: postmenopausal; screening for osteoporosis; height loss; Referring Provider: Tyree Teran Study: Bone densitometry was performed. Exam Date: November 24, 2024 Accession number: [id number] Bone Density: Region BMD T-score Z-score Classification AP Spine(L1-L4) 1.050 0.0 1.5 Normal Femoral Neck (Left) 0.699 -1.4 0.0 Osteopenia Total Hip (Left) 0.769 -1.4 -0.4 Osteopenia Femoral Neck (Right) 0.726 -1.1 0.2 Osteopenia Total Hip (Right) 0.863 -0.6 0.4 Normal Femoral Neck Mean 0.713 -1.2 0.1 Osteopenia Total Hip Mean 0.816 -1.0 0.0 Normal World Health Organization criteria for BMD impression classify patients as: Normal (T-score at or above -1.0), Osteopenia (T-score between -1.0 and -2.5), or Osteoporosis (T-score at or below -2.5). 10-year Fracture Risk(1): Major Osteoporotic Fracture 7.7% Hip Fracture 0.6% Reported Risk Factors: [place] (), Neck BMD=0.699, BMI=27.5 (1) FRAX(R) Version 3.08. Fracture probability calculated for an untreated patient. Fracture probability may be lower if the patient has received treatment. Clinical Information Provided by Patient: Patient maximum height was 67 Menopause Age: 38 Onset of menses at age 12 Number of children 1 Impression: The patient has low bone mass, based on the Left Total Hip T-score. Discussion: BONE DENSITY IS LOW AT ONE OR MORE SKELETAL SITES. This patient's lowest T-score is low at one or more skeletal sites. It meets the World Health Organization's (WHO) criteria for ?low bone mass? (T-score between -1.0 and -2.5). The patient's 10-year risk of fracture as calculated by FRAX is less than the threshold where pharmacological therapy is recommended by the National Osteoporosis Foundation (NOF). However, all treatment decisions require clinical judgment and consideration of individual patient factors, including patient preferences, comorbidities, previous drug use, risk factors not captured in the FRAX model (e.g., frailty, falls, vitamin D deficiency, increased bone turnover, interval significant decline in bone density) and possible under or overestimation of fracture risk by FRAX. The patient should follow a healthful lifestyle (good nutrition with adequate calcium and vitamin D, and appropriate weight-bearing exercise). Follow-Up: Consider repeating this study in 2 to 3 years to reassess this patient's status, or sooner if there is some new clinical indication. Reported by: VAISHALI on 11/24/2024 12:04:00 PM. Reviewed, dictated and finalized at location A.
--- OUTSIDE RECORDS SUMMARY | 2024-11-24 13:36 | XMS_ITS ---
Author Organization [facility] [employer] Address [address] [facility] [address] [place] [address] Care Team Providers Care Development Associate Name Role Phone Augusto Cai Unavailable [phone] Allergies Allergen (clinical drug ingredient) Drug/Non Drug [...] % (0.1 mg/gram) Vaginal *Pick strength-form from [employer] for eRX* 11/11/2023 Active clonazePAM 1 MG 1 tablet Oral Once a day for 30 days 03/11/2024 Active Diclofenac Sodium 1% Transdermal 11/11/2023 Active GEMTESA 75 MG TABLET *[facility] for [facility] and Interaction Alerts* 11/11/2023 [...] TROMETHAMINE 3 GRAM ORAL PACKET *Reorder from [employer] for eRx and Interaction Alerts* 11/11/2023 Active Famotidine 20 MG Oral 11/11/2023 Ac tive Omeprazole 20 MG Oral 11/11/2023 Ac tive Sulfamethoxazole-Tri methoprim 800-160 MG Oral 11/11/2023 Active Trimethoprim 100 MG Oral 11/11/2023 Active Social History Sex Assigned At : Social History Observation Description Sex Assigned At Female Encounters Encounter Location Date Provider Diagnosis [facility] [employer] [address] [facility] [address] [place] [address] 03/11/2024 Augustotyrone Wagneroza Generalized anxiety disorder F41.1 [...] * NITIN MASON: 4 (58 yo F)Acc No.[id number]:03/11/2024 Patient: ANGELES RODRIGUEZ Provider: LIGIA GONZALEZ :1965 A ge:58 Y S ex:Female Date:03/11/2024 Address:[address] [place], [place] [address] Subjective: * Chief Complaints: * * HPI: [...] concerned because her grandson is joining the [employer]. She is not going to therapy, she states the copay was $60 a visit. She started ozempic, feels it makes lamotrigine feel like it hangs around longer, has had 2 mornings she felt tired or had double vision one morning. 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 * ROS: P sychiatric: Patient denies a nxiety, depressed mood, loss of appetite.? * Medical History: P sirenalems: Bipolar disorder in remission, Generalized anxiety disorder, ,. * Surgical History: T onsilectomy/adenoids 09/29/1991, Removal of gallbladder (79062) 09/29/1996, Hysterectomy (87271) 09/29/2000. * Social History: M igrated Social History: M igrated Social History: Alcohol Intake: None 12/12/2022,Tobacco Years: Never smoker 12/12/2022. * Medications: T aking Cefdinir 300 MG Capsule Oral , Taking Linzess 72 mcg Capsule Oral , Taking GEMTESA 75 MG TABLET , Notes to Pharmacist: *Reorder from [employer] for eRx and Interaction Alerts*, Taking Celecoxib 200 MG Capsule Oral , Taking Estradiol 0.01 % (0.1 mg/gram) Cream Vaginal , Notes to Pharmacist: *Pick strength-form from [employer] for eRX*, Taking lamoTRIgine 200 MG Tablet Oral , Taking Diclofenac Sodium 1% Gel Transdermal , Taking Trimethoprim 100 MG Tablet Oral , Taking FOSFOMYCIN TROMETHAMINE 3 GRAM ORAL PACKET , Notes to Pharmacist: *Reorder from [employer] for eRx and Interaction Alerts*, Taking clonazePAM [...] Months * Billing Information: * Visit Code: 78101 OFFICE OUTPATIENT VISIT 25 MINUTES DETAILED HISTORY AND EXAM/MODERATE MEDICAL DECISION MAKING. * Procedure Codes: * Sign off status: Completed true * Provider: Edgardo CAI, PMHNP Date: 0 03/11/2024 Generated for Keith obrien/Alba/Donalditting on: 0 11/24/2024 01:35 PM FLIGHT ENGINEER HELICOPTER History and Physical Notes * HPI (History [...] concerned because her grandson is joining the [employer]. She is not going to therapy, she states the copay was $60 a visit. She started ozempic, feels it makes lamotrigine feel like it hangs around longer, has had 2 mornings she felt tired or had double vision one morning. 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
--- OUTSIDE RECORDS SUMMARY | 2024-11-24 13:36 | XMS_ITS | Clinical Summary ---
Author Organization [facility] Address [address] [facility] [place] [address] Care Team Providers Care Donation Worker Name Role Phone Ivy Feldman RN Unavailable Unavailable Torin Hercules DO Primary Care Provider [phone] Source Comments [facility],non-owned Affiliates and Associated Physician Practices is amultiple site organization consisting of ambulatory clinics and hospital sitesin [place], [place], [place] and [place]. This disclosure is being madepursuant to the Care Everywhere program and may not contain all information available regarding this patient. Last updated 18.[facility] [place] Allergies Active Allergy Reactions Criticality Noted Date [...] female 11/26/2011 Overview (04/02/2018): Overview: Mamms @ [facility] 12/2013 negative 09/2014 TREE Dx Mamm [...] Recently Relevant to Health Maintenance Care Teams Donation Worker Relationship Specialty Start Date End Date Ivy Feldman RN PCP - OBGYN Nurse Practitioner 01/06/13 Torin Hercules DO [address] [place] [address] PCP - General 04/23/21
--- OUTSIDE RECORDS SUMMARY | 2024-11-24 13:36 | XMS_ITS | Patient Health Record ---
Author Organization [facility] [employer] Address [address] [place] [address] Care Team Providers Care Forging Roll Operator Name Role Phone Augusto Cai Unavailable [phone] Stefanie David Unavailable [phone] Migration, Provider Unavailable Unavailable Allergies Allergen (clinical [...] % (0.1 mg/gram) Vaginal *Pick strength-form from [facility] for eRX* 11/11/2023 Active GEMTESA 75 MG TABLET *[facility] for [facility] and Interaction Alerts* 11/11/2023 Active Diclofenac Sodium 1% Transdermal 11/11/2023 Active lamoTRIgine 200 MG 1 tablet Oral twice a day for 90 days Active Sulfamethoxazole-Tri methoprim 800-160 MG Oral 11/11/2023 Active Omeprazole 20 MG Oral 11/11/2023 Ac tive Linzess 145 MCG Oral 11/11/2023 Act rosario Famotidine 20 MG Oral 11/11/2023 Ac tive clonazePAM 1 MG 1 tablet Oral Once a day for 30 days As needed 11/10/2024 Active Immunizations Vaccine Route Administration Date Status [...] disorder, most recent episode mixed, in remission (85619638) Bipolar disorder, currently in remission, most recent episode unspecified (F31.70) Active confirmed Problem Generalized anxiety disorder (90333565) Generalized anxiety disorder (F41.1) Active confirmed Vital Signs Blood pressure diastolic 70 mm Hg 07/06/2024 Height-cm 170.18 cm 07/06/2024 Weight-kg 81.83 kg 07/06/2024 Height 67.00 in 07/06/2024 Blood pressure systolic 104 mm Hg 07/06/2024 Weight 180.4 lbs 07/06/2024 BMI 28.25 kg/m2 07/06/2024 Encounters Encounter Location Date Provider Diagnosis [facility] [employer] [facility] [address] [address] 02/24/2024 Stefanie Buckner [facility] [employer] [facility] [address] [address] 11/26/2023 Stefanie Buckner Bipolar disorder, currently in remission, most recent episode unspecified F31.70 and Generalized anxiety disorder F41.1 [facility] [employer] [facility] [address] [facility] [address] [place] [address] 01/12/2024 Stefanie Buckner Generalized anxiety disorder F41.1 and Bipolar disorder, currently in remission, most recent episode unspecified F31.70 [facility] [employer] [facility] [address] [place] [address] 03/11/2024 Augusto Cai Generalized anxiety disorder F41.1 and Bipolar disorder, currently in remission, most recent episode unspecified F31.70 [facility] [employer] [facility] [address] [place] [address] 07/06/2024 Augusto Cai Generalized anxiety disorder F41.1 and Bipolar disorder, currently in remission, most recent episode unspecified F31.70 [place] [address] [place] [address] 01/12/[address] [facility] [address] [place] [address] 01/27/[address] [facility] [address] [place] [address] 02/14/2024 Provider Migration [place] [address] [place] [address] 02/15/2024 Provider Migration Assessments Encounter Date Diagnosis (ICD Code) Assessment Notes Treatment Notes Treatment Clinical Notes Section Notes 11/26/2023 Bipolar disorder, currently in remission, most recent episode unspecified (ICD-10 - F31.70) 11/26/2023 Generalized anxiety disorder (ICD-10 - F41.1) 01/12/2024 Bipolar disorder, currently in remission, most recent episode unspecified (ICD-10 - F31.70) 01/12/2024 Generalized anxiety disorder (ICD-10 - F41.1) 03/11/2024 Bipolar disorder, currently in remission, most recent episode unspecified (ICD-10 - F31.70) lamotrigine + estradiol (hormone replacement) consider incr. lamotrigine maint. dose 2-fold, initial dose escalation unchanged; no change if also on carbamazepine, phenytoin, phenobarbital, primidone or rifampin: combo may decr. 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 Plan: - Schedule [...] Insured Coverage Start Date Coverage End Date [employer] [address] [place] [address] [id number] VARGAS Self - patient is the insured Medical (General) History Medical History History ICD Code Problems: Bipolar disorder in remission Generalized anxiety disorder , Surgical History Surgery Date(Month/Year) Tonsilectomy/adenoids 09/29/1991 Removal of gallbladder (40798) 7 Hysterectomy (07831) 09/29/2000
--- OUTSIDE RECORDS SUMMARY | 2024-11-24 13:36 | XMS_ITS ---
Author Organization [facility] [employer] [facility] Address [address] [place] [address] Care Team Providers Care Cell Biology Scientist Name Role Phone Augusto Cai Unavailable [phone] Stefanie David Unavailable [phone] Social History Sex Assigned At : Social History Observation Description Sex Assigned At Female Encounters Encounter Location Date Provider Diagnosis [facility] [employer] [facility] [address] [place] [address] 02/24/2024 Stefanie Hugo Plan Of Treatment No Information Progress Notes * ANH MASONOB: 4 (59 yo F)Acc No.[id number]:02/24/2024 Patient: ANGELES RODRIGUEZ Provider: Edgardo HUGO LCSW :1965 A ge:58 Y S ex:Female Date:02/24/2024 Address:[address] [place], [place] [address] Subjective: * Chief Complaints: * * Medical History: Objective: * Vitals: Assessment: Plan: * Treatment: * Billing Information: * Visit Code: * Procedure Codes: * Electronic signature of Alyse Hugo LCSW on 11/24/2024 at 01:36 PM IMPRESS ASSOCIATE Sign off status: Pending * Provider: Edgardo HUGO LCSW Date: 0 02/24/2024 Generated for Keith obrien/Alba/eTransmitting on: 0 11/24/2024 01:36 PM IMPRESS ASSOCIATE
--- OUTSIDE RECORDS SUMMARY | 2024-11-24 13:36 | XMS_ITS ---
Author Organization [facility] Address [address] [facility] [address] [place] [address] Care Team Providers Care Pit Hand Name Role Phone Augusto Cai Unavailable [phone] Allergies Allergen (clinical drug ingredient) Drug/Non Drug [...] % (0.1 mg/gram) Vaginal *Pick strength-form from [employer] for eRX* 11/11/2023 Active Diclofenac Sodium 1% [...] Status Risk Notes Problem Generalized anxiety disorder (91383381) Generalized anxiety disorder (F41.1) 4 Active confirmed Problem Bipolar I disorder, most recent episode mixed, in remission (49993314) Bipolar disorder, currently in remission, most recent episode unspecified (F31.70) 4 Active confirmed Vital Signs Blood pressure systolic 104 mm Hg 07/06/20 24 Blood pressure diastolic 70 mm Hg 024 Height 67.00 in 07/06/2024 Weight 180.4 lbs 07/06/2024 BMI 28.25 kg/m2 07/06/2024 Height-cm 170.18 cm 07/06/2024 Weight-kg 81.83 kg 07/06/2024 Encounters Encounter Location Date Provider Diagnosis [facility] [address] [facility] [address] [place] [address] 07/06/2024 Augusto Cai Generalized anxiety disorder F41.1 [...] 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 paperwork completed every 3 [...] TABLET , Notes to Pharmacist: *Reorder from [facility] for eRx and Interaction Alerts*Estradiol 0.01 % (0.1 mg/gram) Cream Vaginal , Notes to Pharmacist: *Pick strength-form from [facility] for eRX*Diclofenac Sodium 1% Gel Transdermal Omeprazole [...] TABLET , Notes to Pharmacist: *Reorder from [facility] for eRx and Interaction Alerts*Taking Estradiol 0.01 % (0.1 mg/gram) Cream Vaginal , Notes to Pharmacist: *Pick strength-form from [facility] for eRX*Taking Diclofenac Sodium 1% Gel Transdermal [...] PACKET , Notes to Pharmacist: *Reorder from [facility] for eRx and Interaction Alerts*clonazePAM 2 MG Tablet Oral Medication List reviewed and reconciled with the patientDiscontinued Vagifem 10 mcg Tablet Vaginal Discontinued Cefdinir 300 MG Capsule Oral Discontinued Linzess 72 mcg Capsule Oral Discontinued Celecoxib 200 MG Capsule Oral Discontinued Trimethoprim 100 MG Tablet Oral Discontinued FOSFOMYCIN TROMETHAMINE 3 GRAM ORAL PACKET , Notes to Pharmacist: *Reorder from [facility] for eRx and Interaction Alerts*Discontinued clonazePAM 2 [...] 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 * Procedure Codes: 93593 BEHAV ASSMT W/SCORE & DOCD/STAND INSTRUMENT. G2211 VISIT COMPLEXITY INHERENT TO ONGOING CARE RELATED TO A PATIENT'S SINGLE, SERIOUS CONDITION OR A COMPLEX CONDITION. 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
--- OUTSIDE RECORDS SUMMARY | 2024-11-24 13:36 | XMS_ITS | Referral Summary ---
Author Organization [facility] Address [address] [facility] [place] [address] Care Team Providers Care Wire Puller Name Role Phone Ivy Feldman RN Unavailable Unavailable Torin Hercules DO Primary Care Provider [phone] Source Comments [facility],non-owned Affiliates and Associated Physician Practices is amultiple site organization consisting of ambulatory clinics and hospital sitesin [place], [place], [place] and [place]. This disclosure is being madepursuant to the Care Everywhere program and may not contain all information available regarding this patient. Last updated 18.[facility] [employer] Allergies Active Allergy Reactions Criticality Noted Date [...] female 11/26/2011 Overview (04/02/2018): Overview: Mamms @ [facility] 12/2013 negative 09/2014 [facility] D[facility] Mamm [...] or Most Recently Relevant to Health Maintenance Insurance Payer Benefit Plan / Group Subscriber ID Effective Dates Phone Address Type [facility] [id number] 2021-Presen t [address] [place] [address] O [facility] [id number] Effective for all dates [address] [place] [address] HMO Care Teams Wire Puller Relationship Specialty Start Date End Date Ivy Feldman RN PCP - OBGYN Nurse Practitioner 01/06/13 Torin Hercules DO [address] [place], [place] [id number] PCP - General 04/23/21
--- OUTSIDE RECORDS SUMMARY | 2024-11-24 13:36 | XMS_ITS | Patient Health Summary ---
Author Organization [facility] Address [address] [place] [address] Care Team Providers Care Featheredge Machine Operator Name Role Phone Ivy Feldman RN Unavailable Unavailable Torin Hercules DO Primary Care Provider [phone] Note from [facility],non-owned Affiliates and Associated Physician Practices is amultiple site organization consisting of ambulatory clinics and hospital sitesin [place], [place], [place] and [place]. This disclosure is being madepursuant to the Care Everywhere program and may not contain all information available regarding this patient. Last updated 18.[facility] Allergies * Celecoxib(Itching) * Diclofenac-Misoprostol(Rash) -Medium Criticality [...] Performed for Visit for screening mammogram * KS INSERT NON-INDWELLING BLADDER(Performed 07/05/2021) Performed for Recurrent UTI * URINALYSIS AUTO - POINT OF CARE (AMB) [facility](Performed 07/05/2021) Performed for Recurrent UTI * KS INSERT NON-INDWELLING BLADDER(Performed 04/24/2021) Performed for Recurrent UTI * CULTURE URINE COMPREHENSIVE(Performed 04/24/2021) Performed for Recurrent UTI * URINALYSIS AUTO - POINT OF CARE (AMB) [facility](Performed 04/24/2021) Performed for Recurrent UTI * CULTURE URINE(Performed 12/12/2020) Performed for Acute cystitis without hematuria * CULTURE URINE(Performed 08/28/2020) Performed for Acute cystitis without hematuria * CULTURE URINE COMPREHENSIVE(Performed 08/17/2020) Performed for Recurrent UTI * KS INSERT NON-INDWELLING BLADDER(Performed 08/17/2020) Performed for Recurrent UTI * URINALYSIS AUTO - POINT OF CARE (AMB) [facility](Performed 08/17/2020) Performed for Recurrent UTI * MAMMO BILAT SCREENING(Performed 04/15/2019) Performed for Visit for screening mammogram * CULTURE URINE COMPREHENSIVE(Performed 02/27/2018) * CULTURE URINE COMPREHENSIVE(Performed 02/27/2018) Performed for Recurrent UTI * KS CYSTOURETHROSCOPY(Performed 02/24/2018) Performed for Recurrent UTI * [...] [facility] Comment: CULTURE, URINE, SPECIAL Micro Number: [id number] Test Status: Final Specimen Source: Urine Specimen [...] cefuroxime, cephalexin and loracarbef. Test Performed at: [facility] [address] BERYL BERNAL MD Microbiology URINE SPECIMEN COLLECTION, CATHETERIZED / Unknown 07/05/2021 11:20 AM CDT 07/06/2021 4:25 AM CDT Ivanna Ly MD LAB - MICROBIOLOGY O RDERABLES [facility] [address] [place] [address] * KS INSERT NON-INDWELLING BLADDER (07/05/2021 10:15 AM CDT) [...] POCT neg Ketones UA POCT neg Specific [place] UA 1.030 Blood Urine POCT neg pH UA 6.0 Protein UA neg Urobilinogen UA 0.2 Nitrite UA neg WBC UA neg Urine URINE / Unknown 07/05/2021 Ivanna Ly MD LAB - POINT OF CARE ORDERABLES * KS INSERT NON-INDWELLING BLADDER (04/24/2021 12:55 PM CDT) [...] [facility] Comment: CULTURE, URINE, ROUTINE Micro Number: [id number] Test Status: Final Specimen Source: URINE, CLEAN CATCH Specimen Quality: Adequate Result: No Growth Test Performed at: [facility] [address] BERYL BERNAL MD Urine URINE SPECIMEN OBTAINED BY CLEAN CATCH PROCEDURE / Unknown 12/12/2020 8:16 AM CDT 12/12/2020 8:17 AM CDT Ivanna Ly MD LAB - MICROBIOLOGY O RDERABLES [address] [address] * KS INSERT NON-INDWELLING BLADDER (08/17/2020 10:03 AM LICENSED ELECTRICIAN) Narrative Ivanna Ly Che, MD - 08/17/2020 10:03 AM LICENSED ELECTRICIAN Ivanna Ly Che, MD 08/17/2020 10:22 AM [...] examination. Ivanna Ly MD MAMMO ORDERABLES * KS CYSTOURETHROSCOPY (02/24/2018 12:42 PM CDT) Narrative Ivanna [...] resultswithin the time period is included. Specific [place] UA 1.025 [facility] pH UA 5.0 [facility] WBC UA ++ [facility] Nitrite UA neg [facility] Protein UA neg [facility] Glucose UA neg [facility] Ketones UA POCT neg [facility] Urobilinogen UA neg [facility] Bilirubin UA POCT neg [facility] Blood Urine POCT ++ [facility] Urine specimen (specimen) 12/05/2017 Ivanna Ly MD LAB - POINT OF CARE ORDERABLES [address] * (ABNORMAL) URINALYSIS W/MICROSCOPIC NO CULTURE (12/04/2016) Color UA YELLOW YELLOW [facility] ([facility]) Appearance CLEAR CLEAR [facility] ([facility]) Specific [place] UA 1.017 1.001 - 1.035 [facility] ([facility]) pH Urine 5.5 5.0 - 8.0 [facility] ([facility]) Glucose UA NEGATIVE NEGATIVE [facility] ([facility]) Bilirubin UA NEGATIVE NEGATIVE [facility] ([facility]) Ketone UA NEGATIVE NEGATIVE [facility] ([facility]) Blood UA 1+(A) NEGATIVE [facility] ([facility]) Protein UA NEGATIVE NEGATIVE [facility] ([facility]) Nitrite [...] UA NONE SEEN NONE SEEN /LPF [facility] ([facility]) Comment: Test Performed at: [facility] [address] [facility] [place] [address] KYLE CRUZ DO,MPH Urine specimen (specimen) URINE SPECIMEN COLLECTION, CATHETERIZED / Unknown 12/04/2016 12/05/2016 2:40 AM LICENSED ELECTRICIAN Ivanna Ly MD LAB - URINALYSIS ORD ERABLES Performing Organization Address [facility]/ZIP Co de Phone Number [facility] ([facility]) * PATHOLOGY TISSUE FOR DERMATOLOGY (03/18/2016 12:00 AM CDT) Result CASE: [id number] PATIENT: KAYLA MASON PATHOLOGIC DIAGNOSIS: Left upper eyelid: ACTINIC KERATOSIS, ERODED PRESENT AT MARGIN CLINICAL DATA: R/O AK, non healing Check margins GROSS DESCRIPTION: Received is one formalin filled container labeled with the patients name and designated left upper eyelid. The specimen consists of a shave measuring [id number], inked. Jar 0. MICROSCOPIC DESCRIPTION: Along the undersurface of the epidermis, there are buds of atypical keratinocytes in a disorderly arrangement. There is alternating orthokeratosis and parakeratosis. The epidermis is eroded. Lesion is present at the margin of the specimen. Electronically signed out by Yohnaa Crawford M.D. 03/20/2016 1:58:07PM [facility] Comment: Performed at: Dermatopathology Laboratory [facility] - Department of Dermatology [address] [place] [address] [place] [address] Phone number: [phone] FAX: [phone] 03/18/2016 03/19/2016 Kourtney Payne MD LAB - PATHOLOGY/CYT OLOGY ORDERABLES Performing Organization Address [facility] Co de Phone Number [facility] [address] [place] [address]. [address] [place] [address] * PADMINI DIAG DIRECT DIG IMAGE BILATERAL G0204 (10/14/2014 11:21 AM LICENSED ELECTRICIAN) Only the most recent of3 resultswithin the time period is included. Anatomical Region Laterality Modality Bilateral Mammography 10/14/2014 11:3 0 AM LICENSED ELECTRICIAN Narrative 10/14/2014 11:34 AM LICENSED ELECTRICIAN EXAMINATION: Bilateral digital diagnostic mammogram on 10/14/2014.. [...] the time period is included. 01/06/[address] [facility] - 01/13/2013 1:45 PM CDT Historical Provider LAB - CHEMISTRY O RDERABLES Performing Organization Address [facility] Co de Phone Number [facility] [address] * PAP IG RFLX HPV ASCU (11/26/2011) 11/26/2011 Historical Provider LAB - PATHOLOGY/C YTOLOGY ORDERABLES Performing Organization Address [facility] Co de Phone Number [facility] * LAB HISTORICAL RESULTS-ONBASE (11/28/2009) Only the most recent of2 resultswithin the time period is included. 11/28/2009 Historical Provider LAB - CHEMISTRY O RDERABLES Performing Organization Address [facility] Co de Phone Number [facility] * PAP SMEAR 1 SLIDE (11/28/2009) Other (qualifier value) 11/28/[address] [facility] - 12/25/2009 10:46 AM CDT This external order was created through the Results Console. Historical Provider LAB - PATHOLOGY/C YTOLOGY ORDERABLES Performing Organization Address [facility] Co de Phone Number [facility] * PH FLUID - POCT (AMB) [facility] (09/29/1998 12:00 AM LICENSED ELECTRICIAN) pH Vaginal 5.0 [facility] Vaginal swab (specimen) 09/29/1998 Historical Provider MD LAB - POINT OF CA RE ORDERABLES [facility] * WET PREP - POINT OF CARE (AMB) [facility] (09/29/1998 12:00 AM LICENSED ELECTRICIAN) pH Wet Prep 5.0 [facility] Yeast Wet Prep +hyphae [facility] Trichomonas Wet Prep neg [facility] Bacteria Wet Prep neg;+LB [facility] Whiff Test neg [facility] 09/29/1998 Historical Provider MD LAB - POINT OF CA RE ORDERABLES Performing Organization Address [facility]/ZIP Co de Phone Number [facility] * FUNGUS JACINTO - POINT OF CARE (AMB) U (09/29/1998 12:00 AM LICENSED ELECTRICIAN) JACINTO Prep + hyphae [facility] Fluid specimen (specimen) 09/29/1998 Historical Provider MD LAB - POINT OF CA RE ORDERABLES Performing Organization Address City/[facility]/ZIP Co de Phone Number [facility] Care Teams Featheredge Machine Operator Relationship Specialty Start Date End Date Ivy Feldman RN PCP - OBGYN Nurse Practitioner 01/06/13 Torin Hercules DO [address] [place] [id number] PCP - General 04/23/21
== END 2024-11-24 11:43 | disposition home or self-care (01) ==
PROVIDERS: PCP Family Medicine; Visit Provider Obstetrics & Gynecology
DX: Z78.0 Asymptomatic menopausal state (principal); M85.89 Other specified disorders of bone density and structure, multiple sites
CPT/HCPCS: 77080

== ENCOUNTER 2024-12-10 09:03 | Outpatient (CLI) | payer OTHER, SELFPAY ==
--- OUTSIDE RECORDS SUMMARY | 2024-12-10 09:28 | XMS_ITS ---
Author Organization [facility] Address [address] [place] [address] Care Team Providers Care Transonic Engineer Name Role Phone Augusto Cai Unavailable [phone] Stefanie David Unavailable [phone] Social History Sex Assigned At : Social History Observation Description Sex Assigned At Female Encounters Encounter Location Date Provider Diagnosis [facility] [address] [facility] [address] [place] [address] 02/24/2024 Stefanie Hugo Plan Of Treatment No Information Progress Notes * ANH MASONOB: 4 (59 yo F)Acc No.[id number]:02/24/2024 Patient: ANGELES RODRIGUEZ Provider: Edgardo HUGO LCSW :1965 A ge:58 Y S ex:Female Date:02/24/2024 Address:[address] [place], [place] [id number] Subjective: * Chief Complaints: * * Medical History: Objective: * Vitals: Assessment: Plan: * Treatment: * Billing Information: * Visit Code: * Procedure Codes: * Electronic signature of Alyse Hugo LCSW on 12/10/2024 at 09:28 AM CDT Sign off status: Pending * Provider: Edgardo HUGO LCSW Date: 02/24/2024 Generated for Keith obrien/Alba/eTransmitting on: 12/10/2024 09:28 AM CDT
--- OUTSIDE RECORDS SUMMARY | 2024-12-10 09:28 | XMS_ITS | Referral Summary ---
Author Organization [facility] Address [address] [place] [address] Care Team Providers Care Color Making Supervisor Name Role Phone Ivy Feldman RN Unavailable Unavailable Torin Hercules DO Primary Care Provider [phone] Source Comments [facility],non-owned Affiliates and Associated Physician Practices is amultiple site organization consisting of ambulatory clinics and hospital sitesin [place], [place], [place] and [place]. This disclosure is being madepursuant to the Care Everywhere program and may not contain all information available regarding this patient. Last updated 18.[facility] Allergies Active Allergy Reactions Criticality Noted Date [...] female 11/26/2011 Overview (04/02/2018): Overview: Mamms @ [facility] 12/2013 negative 09/2014 [facility] Dx Mamm [...] Recently Relevant to Health Maintenance Care Teams Color Making Supervisor Relationship Specialty Start Date End Date Ivy Feldman RN PCP - OBGYN Nurse Practitioner 01/06/13 Torin Hercules DO [address] [place], [place] [id number] PCP - General 04/23/21
--- OUTSIDE RECORDS SUMMARY | 2024-12-10 09:28 | XMS_ITS ---
Author Organization [facility] [employer] Address [address] [facility] [address] [place] [address] Care Team Providers Care Patented Hogshead Assembler Name Role Phone Augusto Cai Unavailable [phone] Allergies Allergen (clinical drug ingredient) Drug/Non Drug [...] % (0.1 mg/gram) Vaginal *[facility] for eRX* 11/11/2023 Active clonazePAM 1 MG 1 tablet Oral Once a day for 30 days 03/11/2024 Active Diclofenac Sodium 1% Transdermal 11/11/2023 Active GEMTESA 75 MG TABLET *[facility] and Interaction Alert[facility]* 11/11/2023 Active [...] TROMETHAMINE 3 GRAM ORAL PACKET *Reorder from [employer] for eRx and Interaction Alerts* 11/11/2023 Active Famotidine 20 MG Oral 11/11/2023 Ac tive Omeprazole 20 MG Oral 11/11/2023 Ac tive Sulfamethoxazole-Tri methoprim 800-160 MG Oral 11/11/2023 Active Trimethoprim 100 MG Oral 11/11/2023 Active Social History Sex Assigned At : Social History Observation Description Sex Assigned At Female Encounters Encounter Location Date Provider Diagnosis [facility] [employer] [address] [facility] [address] [place] [address] 03/11/2024 Augustotyrone Wagneroza Generalized anxiety disorder F41.1 [...] * NITIN MASON: 4 (58 yo F)Acc No.[id number]:03/11/2024 Patient: ANGELES RODRIGUEZ Provider: LIGIA GONZALEZ :1965 A ge:58 Y S ex:Female Date:03/11/2024 Address:[address] [place], [place] [id number] Subjective: * Chief Complaints: * * HPI: [...] concerned because her grandson is joining the [employer]. She is not going to therapy, she [...] History: T onsilectomy/adenoids 09/29/1991, Removal of gallbladder (91135) 09/29/1996, Hysterectomy (32874) 09/29/2000. * Social History: M igrated Social History: M igrated Social History: Alcohol Intake: None 12/12/2022,Tobacco Years: Never smoker 12/12/2022. * Medications: T aking Cefdinir 300 MG Capsule Oral , Taking Linzess 72 mcg Capsule Oral , Taking GEMTESA 75 MG TABLET , Notes to Pharmacist: *Reorder from [employer] for eRx and Interaction Alerts*, Taking Celecoxib 200 MG Capsule Oral , Taking Estradiol 0.01 % (0.1 mg/gram) Cream Vaginal , Notes to Pharmacist: *Pick strength-form from [employer] for eRX*, Taking lamoTRIgine 200 MG Tablet Oral , Taking Diclofenac Sodium 1% Gel Transdermal , Taking Trimethoprim 100 MG Tablet Oral , Taking FOSFOMYCIN TROMETHAMINE 3 GRAM ORAL PACKET , Notes to Pharmacist: *Reorder from [employer] for eRx and Interaction Alerts*, Taking clonazePAM [...] Months * Billing Information: * Visit Code: 84065 OFFICE OUTPATIENT VISIT 25 MINUTES DETAILED HISTORY AND EXAM/MODERATE MEDICAL DECISION MAKING. * Procedure Codes: * Sign off status: Completed true * Provider: Edgardo CAI, PMHNP Date: 0 03/11/2024 Generated for Keith obrien/Alba/Donalditting on: 0 12/10/2024 09:28 AM CDT History and Physical Notes * HPI (History [...] concerned because her grandson is joining the [employer]. She is not going to therapy, she [...]
--- OUTSIDE RECORDS SUMMARY | 2024-12-10 09:28 | XMS_ITS | Clinical Summary ---
Author Organization [facility] Address [address] [facility] [place] [address] Care Team Providers Care Supervisor Pipeline Maintenance Name Role Phone Ivy Feldman RN Unavailable Unavailable Torin Hercules DO Primary Care Provider [phone] Source Comments [facility],non-owned Affiliates and Associated Physician Practices is amultiple site organization consisting of ambulatory clinics and hospital sitesin [place], [place], [place] and [place]. This disclosure is being madepursuant to the Care Everywhere program and may not contain all information available regarding this patient. Last updated 18.[facility] [employer] Allergies Active Allergy Reactions Criticality Noted Date [...] female 11/26/2011 Overview (04/02/2018): Overview: Mamms @ [facility] 12/2013 negative 09/2014 TREE Dx Mamm [...] complete this topic MENINGOCOCCAL (Group B) VACCINE SHARED DECISION-MAKING Aged Out No longer eligible based on patient's age to complete this topic MENINGOCOCCAL GROUPS A/C/Y/W VACCINE Aged Out No longer eligible based [...] Recently Relevant to Health Maintenance Care Teams Supervisor Pipeline Maintenance Relationship Specialty Start Date End Date Ivy Feldman, RN PCP - OBGYN Nurse Practitioner 01/06/13 Torin Hercules DO [address] [address] PCP - General 04/23/21
--- OUTSIDE RECORDS SUMMARY | 2024-12-10 09:28 | XMS_ITS | Patient Health Summary ---
Author Organization [facility] Address [address] [facility] [place] [address] Care Team Providers Care Technical Project Coordinator Name Role Phone Ivy Feldman RN Unavailable Unavailable Torin Hercules DO Primary Care Provider Note from [facility],non-owned Affiliates and Associated Physician Practices is amultiple site organization consisting of ambulatory clinics and hospital sitesin [place], [place], [place] and [place]. This disclosure is being madepursuant to the Care Everywhere program and may not contain all information available regarding this patient. Last updated 18.[facility] Allergies * Celecoxib(Itching) * Diclofenac-Misoprostol(Rash) -Medium [...] Performed for Visit for screening mammogram * WY INSERT NON-INDWELLING BLADDER(Performed 07/05/2021) Performed for Recurrent UTI * URINALYSIS AUTO - POINT OF CARE (AMB) [facility](Performed 07/05/2021) Performed for Recurrent UTI * WY INSERT NON-INDWELLING BLADDER(Performed 04/24/2021) Performed for Recurrent UTI * CULTURE URINE COMPREHENSIVE(Performed 04/24/2021) Performed for Recurrent UTI * URINALYSIS AUTO - POINT OF CARE (AMB) [facility](Performed 04/24/2021) Performed for Recurrent UTI * CULTURE URINE(Performed 12/12/2020) Performed for Acute cystitis without hematuria * CULTURE URINE(Performed 08/28/2020) Performed for Acute cystitis without hematuria * CULTURE URINE COMPREHENSIVE(Performed 08/17/2020) Performed for Recurrent UTI * WY INSERT NON-INDWELLING BLADDER(Performed 08/17/2020) Performed for Recurrent UTI * URINALYSIS AUTO - POINT OF CARE (AMB) [facility](Performed 08/17/2020) Performed for Recurrent UTI * MAMMO BILAT SCREENING(Performed 04/15/2019) Performed for Visit for screening mammogram * CULTURE URINE COMPREHENSIVE(Performed 02/27/2018) * CULTURE URINE COMPREHENSIVE(Performed 02/27/2018) Performed for Recurrent UTI * WY CYSTOURETHROSCOPY(Performed 02/24/2018) Performed for Recurrent UTI * [...] [facility] Comment: CULTURE, URINE, SPECIAL Micro Number: [id number] Test Status: Final Specimen Source: Urine Specimen [...] cefuroxime, cephalexin and loracarbef. Test Performed at: [facility] [address] BERYL BERNAL MD Microbiology URINE SPECIMEN COLLECTION, CATHETERIZED / Unknown 07/05/2021 11:20 AM CDT 07/06/2021 4:25 AM CDT Ivanna Ly MD LAB - MICROBIOLOGY O RDERABLES [facility] [address] [place] [address] * WY INSERT NON-INDWELLING BLADDER (07/05/2021 10:15 AM CDT) [...] POCT neg Ketones UA POCT neg Specific [place] UA 1.030 Blood Urine POCT neg pH UA 6.0 Protein UA neg Urobilinogen UA 0.2 Nitrite UA neg WBC UA neg Urine URINE / Unknown 07/05/2021 Ivanna Ly MD LAB - POINT OF CARE ORDERABLES * WY INSERT NON-INDWELLING BLADDER (04/24/2021 12:55 PM CDT) [...] [facility] Comment: CULTURE, URINE, ROUTINE Micro Number: [id number] Test Status: Final Specimen Source: URINE, CLEAN CATCH Specimen Quality: Adequate Result: No Growth Test Performed at: [facility] [address] BERYL BERNAL MD Urine URINE SPECIMEN OBTAINED BY CLEAN CATCH PROCEDURE / Unknown 12/12/2020 8:16 AM CDT 12/12/2020 8:17 AM CDT Ivanna Ly MD LAB - MICROBIOLOGY O RDERABLES [address] [address] * WY INSERT NON-INDWELLING BLADDER (08/17/2020 10:03 AM MANAGING DIRECTOR) Narrative Ivanna Ly Che, MD - 08/17/2020 10:03 AM MANAGING DIRECTOR Ivanna Ly Che, MD 08/17/2020 10:22 AM [...] examination. Ivanna Ly MD MAMMO ORDERABLES * WY CYSTOURETHROSCOPY (02/24/2018 12:42 PM CDT) Narrative Ivanna [...] resultswithin the time period is included. Specific [place] UA 1.025 [facility] pH UA 5.0 [facility] WBC UA ++ [facility] Nitrite UA neg [facility] Protein UA neg [facility] Glucose UA neg [facility] Ketones UA POCT neg [facility] Urobilinogen UA neg [facility] Bilirubin UA POCT neg [facility] Blood Urine POCT ++ [facility] Urine specimen (specimen) 12/05/2017 Ivanna Ly MD LAB - POINT OF CARE ORDERABLES [address] * (ABNORMAL) URINALYSIS W/MICROSCOPIC NO CULTURE (12/04/2016) Color UA YELLOW YELLOW [facility]) Appearance CLEAR CLEAR [facility]) Specific [place] UA 1.017 1.001 - 1.035 [facility] pH Urine 5.5 5.0 - 8.0 [facility] Glucose UA NEGATIVE NEGATIVE [facility]) Bilirubin UA NEGATIVE NEGATIVE [facility]) Ketone UA NEGATIVE NEGATIVE [facility] Blood UA 1+(A) NEGATIVE [facility] Protein UA NEGATIVE NEGATIVE [facility] ([facility]) [...] UA NONE SEEN NONE SEEN /LPF [facility] Comment: Test Performed at: [facility] [address] [place] [address] KYLE CRUZ DO,MPH Urine specimen (specimen) URINE SPECIMEN COLLECTION, CATHETERIZED / Unknown 12/04/2016 12/05/2016 2:40 AM MANAGING DIRECTOR Ivanna Ly MD LAB - URINALYSIS ORD ERABLES Performing Organization Address [facility]/ZIP Co de Phone Number [facility]) * PATHOLOGY TISSUE FOR DERMATOLOGY (03/18/2016 12:00 AM CDT) Result CASE: [id number] PATIENT: KAYLA MASON PATHOLOGIC DIAGNOSIS: Left upper eyelid: ACTINIC KERATOSIS, ERODED PRESENT AT MARGIN CLINICAL DATA: R/O AK, non healing Check margins GROSS DESCRIPTION: Received is one formalin filled container labeled with the patients name and designated left upper eyelid. The specimen consists of a shave measuring [id number], inked. Jar 0. MICROSCOPIC DESCRIPTION: Along the undersurface of the epidermis, there are buds of atypical keratinocytes in a disorderly arrangement. There is alternating orthokeratosis and parakeratosis. The epidermis is eroded. Lesion is present at the margin of the specimen. Electronically signed out by Yohana Crawford M.D. 03/20/2016 1:58:07PM [facility] Comment: Performed at: Dermatopathology Laboratory [facility] - Department of Dermatology [address] [place] [address] [place] [address] Phone number: [phone] FAX: [phone] 03/18/2016 03/19/2016 Kourtney Payne MD LAB - PATHOLOGY/CYT OLOGY ORDERABLES Performing Organization Address [facility] Co de Phone Number [facility] [address] [place] [address]. [address] [place] [address] * PADMINI DIAG DIRECT DIG IMAGE BILATERAL [id number] (10/14/2014 11:21 AM MANAGING DIRECTOR) Only the most recent of3 resultswithin the time period is included. Anatomical Region Laterality Modality Bilateral Mammography 10/14/2014 11:3 0 AM MANAGING DIRECTOR Narrative 10/14/2014 11:34 AM MANAGING DIRECTOR EXAMINATION: Bilateral digital diagnostic mammogram on 10/14/2014.. [...] the time period is included. 01/06/2013 Narrative [facility] - 01/13/2013 1:45 PM CDT Historical Provider LAB - CHEMISTRY O RDERABLES Performing Organization Address [facility] Co de Phone Number [facility] [address] * PAP IG RFLX HPV ASCU (11/26/2011) 11/26/2011 Historical Provider LAB - PATHOLOGY/C YTOLOGY ORDERABLES Performing Organization Address [facility] Co de Phone Number [facility] * LAB HISTORICAL RESULTS-ONBASE (11/28/2009) Only the most recent of2 resultswithin the time period is included. 11/28/2009 Historical Provider LAB - CHEMISTRY O RDERABLES Performing Organization Address [facility] Co de Phone Number [facility] * PAP SMEAR 1 SLIDE (11/28/2009) Other (qualifier value) 11/28/2009 Narrative [facility] - 12/25/2009 10:46 AM CDT This external order was created through the Results Console. Historical Provider LAB - PATHOLOGY/C YTOLOGY ORDERABLES Performing Organization Address [facility] Co de Phone Number [facility] * PH FLUID - POCT (AMB) [facility] (09/29/1998 12:00 AM MANAGING DIRECTOR) pH Vaginal 5.0 [facility] Vaginal swab (specimen) 09/29/1998 Historical Provider MD LAB - POINT OF CA RE ORDERABLES [facility] * WET PREP - POINT OF CARE (AMB) [facility] (09/29/1998 12:00 AM MANAGING DIRECTOR) pH Wet Prep 5.0 [facility] Yeast Wet Prep +hyphae [facility] Trichomonas Wet Prep neg [facility] Bacteria Wet Prep neg;+LB [facility] Whiff Test neg [facility] 09/29/1998 Historical Provider MD LAB - POINT OF CA RE ORDERABLES Performing Organization Address [facility]/ZIP Co de Phone Number [facility] * FUNGUS JACINTO - POINT OF CARE (AMB) U (09/29/1998 12:00 AM MANAGING DIRECTOR) JACINTO Prep + hyphae [facility] Fluid specimen (specimen) 09/29/1998 Historical Provider MD LAB - POINT OF CA RE ORDERABLES Performing Organization Address City/[facility]/ZIP Co de Phone Number [facility] Care Teams Technical Project Coordinator Relationship Specialty Start Date End Date Ivy Feldman RN PCP - OBGYN Nurse Practitioner 01/06/13 Torin Hercules DO [address] [place] [address] PCP - General 04/23/21
--- OUTSIDE RECORDS SUMMARY | 2024-12-10 09:28 | XMS_ITS | Patient Health Record ---
Author Organization [facility] [employer] Address [address] [place] [address] Care Team Providers Care Sales And Service Representative Name Role Phone Augusto Cai Unavailable [phone] Stefanie David Unavailable [phone] Migration, Provider Unavailable Unavailable Allergies Allergen (clinical [...] % (0.1 mg/gram) Vaginal *Pick strength-form from [facility] for eRX* 11/11/2023 Active GEMTESA 75 MG TABLET *[facility] for e[facility] and Interaction Alerts* 11/11/2023 Active [...] disorder, most recent episode mixed, in remission ([id number]) Bipolar disorder, currently in remission, most recent episode unspecified (F31.70) Active confirmed Problem Generalized anxiety disorder (29056008) Generalized anxiety disorder (F41.1) Active confirmed Vital Signs Height-cm 170.18 cm 07/06/2024 Blood pressure diastolic 70 mm Hg 07/06/2024 Weight-kg 81.83 kg 07/06/2024 Height 67.00 in 07/06/2024 Blood pressure systolic 104 mm Hg 07/06/2024 Weight 180.4 lbs 07/06/2024 BMI 28.25 kg/m2 07/06/2024 Encounters Encounter Location Date Provider Diagnosis [facility] [address] [address] 02/24/2024 Stefanie Buckner [facility] [address] [address] 01/12/2024 Stefanie Buckner Generalized anxiety disorder F41.1 and Bipolar disorder, currently in remission, most recent episode unspecified F31.70 [employer] [facility] [address] [address] 03/11/2024 Augusto Cai Generalized anxiety disorder F41.1 and Bipolar disorder, currently in remission, most recent episode unspecified F31.70 [employer] [facility] [address] [address] 07/06/2024 Augusto Cai Generalized anxiety disorder F41.1 and Bipolar disorder, currently in remission, most recent episode unspecified F31.70 [employer] [facility] [address] [address] 01/12/2024 Provider Migration [facility] [employer] [facility] [address] [place] [address] 01/27/2024 Provider Migration [facility] [employer] [facility] [address] [place] [address] 02/14/2024 [facility] [address] [place] [address] 02/15/2024 Provider Migration Assessments Encounter Date Diagnosis (ICD Code) Assessment Notes Treatment Notes Treatment Clinical Notes Section Notes 01/12/2024 Bipolar disorder, currently in remission, most [...] 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 Plan: - Schedule [...] Insured Coverage Start Date Coverage End Date [facility] [address] [place] [address] [id number] ANGELES LANGFORD Self - patient is the insured Medical (General) History Medical History History ICD Code Problems: Bipolar disorder in remission Generalized anxiety disorder , Surgical History Surgery Date(Month/Year) Tonsilectomy/adenoids 09/29/1991 Removal of gallbladder (68697) 7 Hysterectomy (22191) 09/29/2000
[2024-12-10 18:44] LABS: Hematocrit 39.2 % (37.0-47.0); Hemoglobin 12.1 g/dL (12.0-15.0); Mean Corpuscular HGB Conc 30.9 g/dl (32-36); Mean Corpuscular Hemoglobin 29.3 pg (26-34); Mean Corpuscular Volume 94.9 fl (80-100); Platelet Count Result 351 k/mm3 (150-375); Red Blood Count 4.13 M/mm3 (4.2-5.4); Red Cell Distribution Width 13.3 % (11.5-14.5); White Blood Count 6.7 K/mm3 (4.5-10.0)
[2024-12-10 18:48] LABS: Alanine Aminotransferase 14 U/L (6-35); Alkaline Phosphatase 97 U/L (38-126); Anion Gap 6 mmol/L (4-12); Aspartate Amino Transferase 67 U/L (14-36); Bilirubin,Total 0.3 mg/dL (0.2-1.3); Blood Urea Nitrogen 21 mg/dL (7-17); Calcium 9.4 mg/dL (8.4-10.2); Carbon Dioxide 30 mmol/L (22-30); Chloride 106 mmol/L (98-107); Cholesterol 139 mg/dL (0-200); Estimated Glomerular Filt Rate > 60; Glucose 81 mg/dL (65-110); HDL Direct 77 mg/dL; Potassium 4.2 mmol/L (3.4-5.0); Sodium 142 mmol/L (137-145); Triglycerides 38 mg/dL (<150)
[2024-12-10 19:00] LABS: LDL Cholesterol Direct 38 mg/dL
[2024-12-10 19:09] LABS: Vitamin D 25 Hydroxy 59.1 ng/mL
[2024-12-10 19:56] LABS: Hepatitis C Virus Antibody Negative (Negative)
== END 2024-12-10 09:04 | disposition home or self-care (01) ==
LOC: ANHGOSHLAB 09:04
PROVIDERS: PCP Family Medicine; Visit Provider Nurse Practitioner
DX: Z00.00 Encounter for general adult medical examination without abnormal findings (principal); Z11.59 Encounter for screening for other viral diseases; E55.9 Vitamin D deficiency, unspecified
CPT/HCPCS: 36415; 80053; 80061; 82306; 84443; 85027; 86803

== ENCOUNTER 2024-12-13 00:15 | Day surgery (SDC) | payer OTHER, SELFPAY ==
[2024-12-03 14:04] VITALS: BMI 27.4
--- OUTSIDE RECORDS SUMMARY | 2024-12-13 00:18 | XMS_ITS | Clinical Summary ---
Author Organization [facility] Address [address] [facility] [place] [address] Care Team Providers Care Application Manager Name Role Phone Ivy Feldman RN Unavailable Unavailable Torin Hercules DO Primary Care Provider [phone] Source Comments [facility],non-owned Affiliates and Associated Physician Practices is amultiple site organization consisting of ambulatory clinics and hospital sitesin [place], [place], [place] and [place]. This disclosure is being madepursuant to the Care Everywhere program and may not contain all information available regarding this patient. Last updated 18.[facility] [employer] Allergies Active Allergy Reactions Criticality Noted Date [...] female 11/26/2011 Overview (04/02/2018): Overview: Mamms @ [facility] 12/2013 negative 09/2014 [facility] Dx Mamm negative [...] no suspicious finding in either breast. Monse Bsas MD MAMMO ORDERABLES from Last 3 Months or Most Recently Relevant to Health Maintenance Care Teams Application Manager Relationship Specialty Start Date End Date Ivy Feldman, RN PCP - OBGYN Nurse Practitioner 01/06/13 Torin Hercules DO [address] [address] PCP - General 04/23/21
--- OUTSIDE RECORDS SUMMARY | 2024-12-13 00:18 | XMS_ITS | Patient Health Summary ---
Author Organization [facility] Address [address] [place] [address] Care Team Providers Care Sports Management Professor Name Role Phone Ivy Feldman RN Unavailable Unavailable Torin Hercules DO Primary Care Provider [phone] Note from [facility],non-owned Affiliates and Associated Physician Practices is amultiple site organization consisting of ambulatory clinics and hospital sitesin [place], [place], [place] and [place]. This disclosure is being madepursuant to the Care Everywhere program and may not contain all information available regarding this patient. Last updated 18.[facility] Allergies * Celecoxib(Itching) * Diclofenac-Misoprostol(Rash) [...] Performed for Visit for screening mammogram * MA INSERT NON-INDWELLING BLADDER(Performed 07/05/2021) Performed for Recurrent UTI * URINALYSIS AUTO - POINT OF CARE (AMB) [facility](Performed 07/05/2021) Performed for Recurrent UTI * MA INSERT NON-INDWELLING BLADDER(Performed 04/24/2021) Performed for Recurrent UTI * CULTURE URINE COMPREHENSIVE(Performed 04/24/2021) Performed for Recurrent UTI * URINALYSIS AUTO - POINT OF CARE (AMB) [facility](Performed 04/24/2021) Performed for Recurrent UTI * CULTURE URINE(Performed 12/12/2020) Performed for Acute cystitis without hematuria * CULTURE URINE(Performed 08/28/2020) Performed for Acute cystitis without hematuria * CULTURE URINE COMPREHENSIVE(Performed 08/17/2020) Performed for Recurrent UTI * MA INSERT NON-INDWELLING BLADDER(Performed 08/17/2020) Performed for Recurrent UTI * URINALYSIS AUTO - POINT OF CARE (AMB) [facility](Performed 08/17/2020) Performed for Recurrent UTI * MAMMO BILAT SCREENING(Performed 04/15/2019) Performed for Visit for screening mammogram * CULTURE URINE COMPREHENSIVE(Performed 02/27/2018) * CULTURE URINE COMPREHENSIVE(Performed 02/27/2018) Performed for Recurrent UTI * MA CYSTOURETHROSCOPY(Performed 02/24/2018) Performed for Recurrent UTI * [...] [facility] Comment: CULTURE, URINE, SPECIAL Micro Number: [id number] Test Status: Final Specimen Source: Urine Specimen [...] cefuroxime, cephalexin and loracarbef. Test Performed at: [facility] [address] BERYL BERNAL MD Microbiology URINE SPECIMEN COLLECTION, CATHETERIZED / Unknown 07/05/2021 11:20 AM CDT 07/06/2021 4:25 AM CDT Ivanna Ly MD LAB - MICROBIOLOGY O RDERABLES [facility] [address] [place] [address] * MA INSERT NON-INDWELLING BLADDER (07/05/2021 10:15 AM CDT) [...] POCT neg Ketones UA POCT neg Specific [place] UA 1.030 Blood Urine POCT neg pH UA 6.0 Protein UA neg Urobilinogen UA 0.2 Nitrite UA neg WBC UA neg Urine URINE / Unknown 07/05/2021 Ivanna Ly MD LAB - POINT OF CARE ORDERABLES * MA INSERT NON-INDWELLING BLADDER (04/24/2021 12:55 PM CDT) [...] [facility] Comment: CULTURE, URINE, ROUTINE Micro Number: [id number] Test Status: Final Specimen Source: URINE, CLEAN CATCH Specimen Quality: Adequate Result: No Growth Test Performed at: [facility] [address] BERYL BERNAL MD Urine URINE SPECIMEN OBTAINED BY CLEAN CATCH PROCEDURE / Unknown 12/12/2020 8:16 AM CDT 12/12/2020 8:17 AM CDT Ivanna Ly MD LAB - MICROBIOLOGY O RDERABLES [address] [address] * MA INSERT NON-INDWELLING BLADDER (08/17/2020 10:03 AM CANDY SUPERVISOR) Narrative Ivanna Ly Che, MD - 08/17/2020 10:03 AM CANDY SUPERVISOR Ivanna Ly Che, MD 08/17/2020 10:22 AM [...] examination. Ivanna Ly MD MAMMO ORDERABLES * MA CYSTOURETHROSCOPY (02/24/2018 12:42 PM CDT) Narrative Ivanna [...] resultswithin the time period is included. Specific [place] UA 1.025 [facility] pH UA 5.0 [facility] WBC UA ++ [facility] Nitrite UA neg [facility] Protein UA neg [facility] Glucose UA neg [facility] Ketones UA POCT neg [facility] Urobilinogen UA neg [facility] Bilirubin UA POCT neg [facility] Blood Urine POCT ++ [facility] Urine specimen (specimen) 12/05/2017 Ivanna Ly MD LAB - POINT OF CARE ORDERABLES [address] * (ABNORMAL) URINALYSIS W/MICROSCOPIC NO CULTURE (12/04/2016) Color UA YELLOW YELLOW [facility] Appearance CLEAR CLEAR [facility]) Specific [place] UA 1.017 1.001 - 1.035 [facility] pH Urine 5.5 5.0 - 8.0 [facility] Glucose UA NEGATIVE NEGATIVE [facility] Bilirubin UA NEGATIVE NEGATIVE [facility]) Ketone UA NEGATIVE NEGATIVE [facility] Blood UA 1+(A) NEGATIVE [facility] Protein UA NEGATIVE NEGATIVE [facility] ([facility]) [...] UA NONE SEEN NONE SEEN /LPF [facility] Comment: Test Performed at: [facility] [id number] [facility] [place] [address] KYLE CRUZ DO,MPH Urine specimen (specimen) URINE SPECIMEN COLLECTION, CATHETERIZED / Unknown 12/04/2016 12/05/2016 2:40 AM CANDY SUPERVISOR Ivanna Ly MD LAB - URINALYSIS ORD ERABLES Performing Organization Address [facility]/ZIP Co de Phone Number [facility]) * PATHOLOGY TISSUE FOR DERMATOLOGY (03/18/2016 12:00 AM CDT) Result CASE: [id number] PATIENT: KAYLA MASON PATHOLOGIC DIAGNOSIS: Left upper eyelid: ACTINIC KERATOSIS, ERODED PRESENT AT MARGIN CLINICAL DATA: R/O AK, non healing Check margins GROSS DESCRIPTION: Received is one formalin filled container labeled with the patients name and designated left upper eyelid. The specimen consists of a shave measuring 6x9y2ks, inked. Jar 0. MICROSCOPIC DESCRIPTION: Along the undersurface of the epidermis, there are buds of atypical keratinocytes in a disorderly arrangement. There is alternating orthokeratosis and parakeratosis. The epidermis is eroded. Lesion is present at the margin of the specimen. Electronically signed out by Yohana Crawford M.D. 03/20/2016 1:58:07PM [facility] Comment: Performed at: Dermatopathology Laboratory [facility] - Department of Dermatology [address] [place] [address] [place] [address] Phone number: [phone] FAX: [phone] 03/18/2016 03/19/2016 Kourtney Payne MD LAB - PATHOLOGY/CYT OLOGY ORDERABLES Performing Organization Address [facility] Co de Phone Number [facility] [address] [place] [address]. [address] [place] [address] * PADMINI DIAG DIRECT DIG IMAGE BILATERAL [id number] (10/14/2014 11:21 AM CANDY SUPERVISOR) Only the most recent of3 resultswithin the time period is included. Anatomical Region Laterality Modality Bilateral Mammography 10/14/2014 11:3 0 AM CANDY SUPERVISOR Narrative 10/14/2014 11:34 AM CANDY SUPERVISOR EXAMINATION: Bilateral digital diagnostic mammogram on 10/14/2014.. [...] the time period is included. 01/06/2013 Narrative [facility] - 01/13/2013 1:45 PM CDT Historical Provider LAB - CHEMISTRY O RDERABLES Performing Organization Address [facility] Co de Phone Number [facility] [address] * PAP IG RFLX HPV ASCU (11/26/2011) 11/26/2011 Historical Provider LAB - PATHOLOGY/C YTOLOGY ORDERABLES Performing Organization Address [facility] Co de Phone Number [facility] * LAB HISTORICAL RESULTS-ONBASE (11/28/2009) Only the most recent of2 resultswithin the time period is included. 11/28/2009 Historical Provider LAB - CHEMISTRY O RDERABLES Performing Organization Address [facility] Co de Phone Number [facility] * PAP SMEAR 1 SLIDE (11/28/2009) Other (qualifier value) 11/28/2009 Narrative [facility] - 12/25/2009 10:46 AM CDT This external order was created through the Results Console. Historical Provider LAB - PATHOLOGY/C YTOLOGY ORDERABLES Performing Organization Address [facility] Co de Phone Number [facility] * PH FLUID - POCT (AMB) [facility] (09/29/1998 12:00 AM CANDY SUPERVISOR) pH Vaginal 5.0 [facility] Vaginal swab (specimen) 09/29/1998 Historical Provider MD LAB - POINT OF CA RE ORDERABLES [facility] * WET PREP - POINT OF CARE (AMB) [facility] (09/29/1998 12:00 AM CANDY SUPERVISOR) pH Wet Prep 5.0 [facility] Yeast Wet Prep +hyphae [facility] Trichomonas Wet Prep neg [facility] Bacteria Wet Prep neg;+LB [facility] Whiff Test neg [facility] 09/29/1998 Historical Provider MD LAB - POINT OF CA RE ORDERABLES Performing Organization Address [facility]/ZIP Co de Phone Number [facility] * FUNGUS JACINTO - POINT OF CARE (AMB) [facility] (09/29/1998 12:00 AM CANDY SUPERVISOR) JACINTO Prep + hyphae [facility] Fluid specimen (specimen) 09/29/1998 Historical Provider MD LAB - POINT OF CA RE ORDERABLES Performing Organization Address City/[facility]/ZIP Co de Phone Number [facility] Care Teams Sports Management Professor Relationship Specialty Start Date End Date Ivy Feldman RN PCP - OBGYN Nurse Practitioner 01/06/13 Torin Hercules DO [address] [place] [id number] PCP - General 04/23/21
--- OUTSIDE RECORDS SUMMARY | 2024-12-13 00:18 | XMS_ITS | Referral Summary ---
Author Organization [facility] Address [address] [place] [address] Care Team Providers Care Criminal Investigator Customs Name Role Phone Ivy Feldman RN Unavailable Unavailable Torin Hercules DO Primary Care Provider [phone] Source Comments [facility],non-owned Affiliates and Associated Physician Practices is amultiple site organization consisting of ambulatory clinics and hospital sitesin [place], [place], [place] and [place]. This disclosure is being madepursuant to the Care Everywhere program and may not contain all information available regarding this patient. Last updated 18.[facility] [employer] Allergies Active Allergy Reactions Criticality Noted Date [...] female 11/26/2011 Overview (04/02/2018): Overview: Mamms @ [facility] 12/2013 negative 09/2014 [facility] Dx Mamm [...] Recently Relevant to Health Maintenance Care Teams Criminal Investigator Customs Relationship Specialty Start Date End Date Ivy Feldman RN PCP - OBGYN Nurse Practitioner 01/06/13 Torin Hercules DO [address] [place], [place] [id number] PCP - General 04/23/21
[2024-12-13 10:22] VITALS: BP 98/71; PULSE 80; RESP 16; TEMP 36.8; O2SAT 97
[2024-12-13] MEDS: LACTATED RINGERS 1,000 ML 150 ML IV CONT (10:36)
--- NOTE | 2024-12-13 10:52 | P.PNAN_ITS ---
Anes - Initial Pre Proc Eval Procedure: Operation Date: 12/13/24 13:15 Proposed Procedures p Esophagogastroduodenoscopy - Long Spann MD Date/Time: 12/13/24 10:52 Surgeon: Long Spann MD Pre Op Diagnosis: Abnormal weight loss, abnormal immunological fin Patient Data Age: 59 Gender: F Height: 1.65 m Weight: 75.2 kg Last Vital Signs Temp 36.8 C 12/13/24 10:22 Pulse 80 12/13/24 10:22 Resp 16 12/13/24 10:22 BP 98/71 L 12/13/24 10:22 Pulse Ox 97 12/13/24 10:22 O2 Del Method Room Air 12/13/24 10:22 Allergies Allergy/AdvReac Type Severity Reaction Status Date / Time nitrofurantoin (From Allergy Severe Rash Verified 12/13/24 10:20 Macrobid) cinnamon Allergy Mild Blister Verified 12/13/24 10:20 codeine Allergy Unknown vaginal Verified 12/13/24 10:20 itching Penicillins Allergy Unknown Itching Verified 12/13/24 10:20 ciprofloxacin AdvReac Unknown joint pain Verified 12/13/24 10:20 Home Medications ?Medication ?Instructions ?Recorded ?Confirmed ?Type vibegron 75 mg tablet (Gemtesa) 75 mg PO DAILY 05/07/22 12/13/24 History lamotrigine 200 mg tablet 200 mg PO .COMPLEX 09/06/22 12/13/24 History estradiol 0.01% (0.1 mg/gram) 1 appful vaginal DAILY 02/18/23 12/13/24 History vaginal cream cholecalciferol (vitamin D3) 25 25 mcg PO DAILY 12/02/23 12/13/24 History mcg (1,000 unit) capsule yvriwtrq-ypvinme-ikrt-lutein tablet 1 tablet PO DAILY 12/02/23 12/13/24 History clonazepam 1 mg tablet 1 mg PO DAILY 03/04/24 12/13/24 History linaclotide 290 mcg capsule 290 mcg PO DAILY 3 months #90 caps 07/30/24 12/13/24 Rx (Linzess) calcium 600 mg (as 1 cap PO DAILY 12/03/24 12/13/24 History carbonate)-vitamin D3 5 mcg (200 unit) capsule (Calcium 600 + D(3)) ibuprofen 200 mg capsule 200 mg PO Q6H pain 12/03/24 12/13/24 History Patient hx anesthesia problems: none Family hx anesthesia problems: none Results Review: All pre-operative results and documents have been reviewed as part of the pre- operative evaluation. [facility] Past Medical History Medical History Hammertoes of both feet Acquired claw toe of left foot Positive autoantibody screening for celiac disease Elevated LFTs Weight loss MILIAN (dyspnea on exertion) Chronic pain Dysphagia Gastroesophageal reflux disease Broken toe H/O irritable bowel syndrome Anxiety History of vaginal delivery x1 Hx of cyst of breast 1989 Surgical History Surgical History S/P total knee arthroplasty Left TKA 08/04/24- Dr. Enamorado History of bladder suspension procedure History of hysterectomy 2000 History of bunionectomy of left great toe 2016, 2018 History of left knee replacement 2003 History of right knee joint replacement 1979 Hx of tubal ligation 1994 Hx of ovarian cystectomy 1987 & 1992 Hx of cholecystectomy mid 1994 Hx of tonsillectomy early 1090s Hx of hysterectomy 2000 Family History Family History Father Cancer of kidney Mother Cancer of kidney Hypertension Heart problem Daughter Anxiety Grandparent Diabetes mellitus Grandparent Alcoholism Unknown Depression High cholesterol Social History Social History Smoking status: Never smoker Second hand tobacco smoke exposure: Yes Additional smoking assessment comments: Denies any nicotine in system Alcohol intake: never Substance use: never Substance use type: marijuana Other substance usage details: 3 x day for 20 years Last use: 11/2019 Do You Feel Safe in your Home?: Yes Lack of Transportation: No Lack of Food: Never True Current Housing: I Have Housing Concerned About Future Housing: No Difficulty Paying Gas/Electric Bills: No Difficulty Paying for Meds: No Currently Unemployed: No Education: Master's Degree or Higher Difficulty w/ Childcare or Family Care: No Living arrangements: with family Additional living arrangements comments: Occupation/Education: retired Gender identity (if verbalized by the patient): Female Spiritual care concerns: No Anes - Eval Final PreProcedure Day of Procedure 12/13/24 10:52 Patient weight: overweight Heart: regular rate and rhythm Lungs: clear to auscultation Airway: Mallampati scale class II Neurological: alert and oriented Last oral intake: >/= 8 hours ASA classification: II Emergent: no Anesthetic plan: proceed Anesthesia type and monitoring: general and standard monitoring Results Review: All pre-operative results and documents have been reviewed as part of the pre- operative evaluation. Informed Consent: The patient's anesthetic plan and its attendant risks and benefits were discussed with the patient/family/POA. Questions were solicited and answers provided to the satisfaction of the patient/family/POA.
--- NOTE | 2024-12-13 11:32 | PM.IMHP ---
H&P: HPI History of Present Illness Date/Time: 12/13/24 11:32 Chief Complaint: Celiac disease Narrative: this patient was complaining of progressive weight loss and was recently found to have anti tTG IgA positive. She is referred for EGD and duodenal biopsies. Review of Systems Review of Systems: All systems reviewed & are unremarkable except as noted in HPI and below PMFSH Past Medical History Medical History Hammertoes of both feet Acquired claw toe of left foot Positive autoantibody screening for celiac disease Elevated LFTs Weight loss MILIAN (dyspnea on exertion) Chronic pain Dysphagia Gastroesophageal reflux disease Broken toe H/O irritable bowel syndrome Anxiety History of vaginal delivery x1 Hx of cyst of breast 1989 Surgical History Surgical History S/P total knee arthroplasty Left TKA 08/04/24- Dr. Enamorado History of bladder suspension procedure History of hysterectomy 2000 History of bunionectomy of left great toe 2016, 2018 History of left knee replacement 2004 History of right knee joint replacement 1979 Hx of tubal ligation 1994 Hx of ovarian cystectomy 1987 & 1992 Hx of cholecystectomy mid 1994 Hx of tonsillectomy early 1090s Hx of hysterectomy 2000 Family History Family History Father Cancer of kidney Mother Cancer of kidney Hypertension Heart problem Daughter Anxiety Grandparent Diabetes mellitus Grandparent Alcoholism Unknown Depression High cholesterol Social History Social History Smoking status: Never smoker Second hand tobacco smoke exposure: Yes Additional smoking assessment comments: Denies any nicotine in system Alcohol intake: never Substance use: never Substance use type: marijuana Other substance usage details: 3 x day for 20 years Last use: 11/2019 Do You Feel Safe in your Home?: Yes Lack of Transportation: No Lack of Food: Never True Current Housing: I Have Housing Concerned About Future Housing: No Difficulty Paying Gas/Electric Bills: No Difficulty Paying for Meds: No Currently Unemployed: No Education: Master's Degree or Higher Difficulty w/ Childcare or Family Care: No Living arrangements: with family Additional living arrangements comments: Occupation/Education: retired Gender identity (if verbalized by the patient): Female Spiritual care concerns: No Meds Home Medications and Allergies Home Medications ?Medication ?Instructions ?Recorded ?Confirmed ?Type vibegron 75 mg tablet (Gemtesa) 75 mg PO DAILY 05/07/22 12/13/24 History lamotrigine 200 mg tablet 200 mg PO .COMPLEX 09/06/22 12/13/24 History estradiol 0.01% (0.1 mg/gram) 1 appful vaginal DAILY 02/18/23 12/13/24 History vaginal cream cholecalciferol (vitamin D3) 25 25 mcg PO DAILY 12/02/23 12/13/24 History mcg (1,000 unit) capsule twpagadj-iwqahgt-unkt-lutein tablet 1 tablet PO DAILY 12/02/23 12/13/24 History clonazepam 1 mg tablet 1 mg PO DAILY 03/04/24 12/13/24 History linaclotide 290 mcg capsule 290 mcg PO DAILY 3 months #90 caps 07/30/24 12/13/24 Rx (Linzess) calcium 600 mg (as 1 cap PO DAILY 12/03/24 12/13/24 History carbonate)-vitamin D3 5 mcg (200 unit) capsule (Calcium 600 + D(3)) ibuprofen 200 mg capsule 200 mg PO Q6H pain 12/03/24 12/13/24 History Allergies Allergy/AdvReac Type Severity Reaction Status Date / Time nitrofurantoin (From Allergy Severe Rash Verified 12/13/24 10:20 Macrobid) cinnamon Allergy Mild Blister Verified 12/13/24 10:20 codeine Allergy Unknown vaginal Verified 12/13/24 10:20 itching Penicillins Allergy Unknown Itching Verified 12/13/24 10:20 ciprofloxacin AdvReac Unknown joint pain Verified 12/13/24 10:20 Vital Signs Vital Signs - 24 hr 12/13/24 10:22 Temperature 98.2 F Pulse Rate 80 Respiratory Rate 16 Blood Pressure 98/71 L Pulse Oximetry 97 Oxygen Delivery Room Air Exam Const: General: cooperative and healthy appearing Resp: Effort & Inspection: normal respiratory effort and able to speak in complete sentences Auscultation: clear to auscultation bilaterally Cardio: Rate: regular rate Rhythm: regular rhythm GI: Inspection: normal to inspection GI Palp: No No hepatosplenomegaly present Auscultation: normal bowel sounds Rectal Exam: deferred Skin: General skin exam: normal color Psych: Appearance: grossly normal Mental Status: mental status grossly normal Assessment and Plan Assessment and plan (1) Positive autoantibody screening for celiac disease: Code(s): R76.8 - Other specified abnormal immunological findings in serum Status: Acute Assessment and Plan: The patient is deemed a good candidate for the procedure. Consent signed. Will proceed.
[2024-12-13 11:49] VITALS: BP 103/62; PULSE 70; RESP 20; O2SAT 98
[2024-12-13 11:59] VITALS: BP 115/62; PULSE 73; RESP 20; O2SAT 99
[2024-12-13 12:09] VITALS: BP 104/63; PULSE 68; RESP 18; O2SAT 99
== END 2024-12-13 12:22 | disposition home or self-care (01) ==
PROVIDERS: PCP Family Medicine; Referring Provider Nurse Practitioner Family; Visit Provider Internal Medicine Gastroenterology
PROC: 0DJ08ZZ Inspection of Upper Intestinal Tract, Via Natural or Artificial Opening Endoscopic (ICD-10-PCS; CPT 43239; principal; 2024-12-13 13:15)
DX: R76.8 Other specified abnormal immunological findings in serum (principal); K29.80 Duodenitis without bleeding; K44.9 Diaphragmatic hernia without obstruction or gangrene; K21.9 Gastro-esophageal reflux disease without esophagitis; K58.9 Irritable bowel syndrome, unspecified; F41.9 Anxiety disorder, unspecified; M20.42 Other hammer toe(s) (acquired), left foot; M20.41 Other hammer toe(s) (acquired), right foot; M20.5X2 Other deformities of toe(s) (acquired), left foot; G89.29 Other chronic pain; F12.90 Cannabis use, unspecified, uncomplicated; Z79.1 Long term (current) use of non-steroidal anti-inflammatories (NSAID); Z98.890 Other specified postprocedural states; Z98.51 Tubal ligation status; Z90.49 Acquired absence of other specified parts of digestive tract; Z80.51 Family history of malignant neoplasm of kidney; Z82.49 Family history of ischemic heart disease and other diseases of the circulatory system
CPT/HCPCS: 43239; 88305; J2704; J7120

== ENCOUNTER 2024-12-17 11:59 | Outpatient (CLI) | payer OTHER, SELFPAY ==
--- NOTE | ~2024-12-17 | US_ITS ---
US abdomen complete EXAMINATION: US Abdomen Complete INDICATION: Abnormal levels of serum enzymes. PROCEDURE: Realtime High Resolution abdomen ultrasound. COMPARISON: No prior studies for comparison FINDINGS: Gallbladder is surgically absent. Common bile duct measures 4 mm. Liver echotexture is heterogeneous. Liver surface is nodular, compatible with cirrhosis.. Pancreas w ithin normal limits. Pancreatic tail is obscured by bowel gas. Spleen is unremarkeable. Renal echot exture is within normal limits bilaterally without hydronephrosis, contour deforming mass or renal st one. Right kidney measures 10.2 cm. Left kidney measures 10.5 cm. Visualized aspects of the aorta and IVC are within normal limits. Portal vein is patent. No sonograph ic Mares's sign indicated by the technologist. IMPRESSION: 1: Cirrhosis of the liver. 2: Status post cholecystectomy. Reviewed, dictated and finalized at location B.
== END 2024-12-17 12:00 | disposition home or self-care (01) ==
LOC: GOSHIMG 11:59
PROVIDERS: PCP Family Medicine; Visit Provider Nurse Practitioner
DX: K74.60 Unspecified cirrhosis of liver (principal); R74.8 Abnormal levels of other serum enzymes; Z90.49 Acquired absence of other specified parts of digestive tract
CPT/HCPCS: 76700

== ENCOUNTER 2024-12-31 11:18 | Outpatient (CLI) | payer OTHER, SELFPAY ==
--- OUTSIDE RECORDS SUMMARY | 2024-12-31 11:43 | XMS_ITS | Patient Health Record ---
Author Organization [facility] [employer] Address [address] [place] [address] Care Team Providers Care Slitter Creaser Slotter Helper Name Role Phone Augusto Cai Unavailable [phone] Stefanie David Unavailable [phone] Migration, Provider Unavailable Unavailable Allergies Allergen (clinical [...] % (0.1 mg/gram) Vaginal *Pick strength-form from [employer] for eRX* 11/11/2023 Active lamoTRIgine 200 MG 1 tablet Oral twice a day for 90 days Active GEMTESA 75 MG TABLET *[facility] and Interaction Alerts* 11/11/2023 Active Diclofenac Sodium 1% Transdermal 11/11/2023 Active Sulfamethoxazole-Tri methoprim 800-160 MG Oral 11/11/2023 Active Omeprazole 20 MG Oral 11/11/2023 Ac tive Linzess 145 MCG Oral 11/11/2023 Act rosario clonazePAM 1 MG 1 tablet Oral Once a day for 30 days As needed 12/13/2024 Active Famotidine 20 MG Oral 11/11/2023 Ac tive Immunizations Vaccine Route Administration Date Status Comme [...] disorder, most recent episode mixed, in remission ([id number]) Bipolar disorder, currently in remission, most recent episode unspecified (F31.70) Active confirmed Problem Generalized anxiety disorder (50437895) Generalized anxiety disorder (F41.1) Active confirmed Vital Signs Blood pressure diastolic 70 mm Hg 07/06/2024 Height-cm 170.18 cm 07/06/2024 Weight-kg 81.83 kg 07/06/2024 Height 67.00 in 07/06/2024 Blood pressure systolic 104 mm Hg 07/06/2024 Weight 180.4 lbs 07/06/2024 BMI 28.25 kg/m2 07/06/2024 Encounters Encounter Location Date Provider Diagnosis [facility] [address] 02/24/2024 Stefanie Buckner [facility] [address] [address] 01/12/2024 Stefanie Buckner Generalized anxiety disorder F41.1 and Bipolar disorder, currently in remission, most recent episode unspecified F31.70 [facility] [address] [address] 03/11/2024 Augusto Cai Generalized anxiety disorder F41.1 and Bipolar disorder, currently in remission, most recent episode unspecified F31.70 [facility] [address] [facility] [address] [place] [address] 07/06/2024 Augusto Cai Generalized anxiety disorder F41.1 and Bipolar disorder, currently in remission, most recent episode unspecified F31.70 [facility] [address] 01/12/2024 Provider Migration [facility] [address] [facility] [address] [place] [address] 01/27/2024 Provider [facility] [address] [facility] [address] [place] [address] 02/14/2024 Provider [facility] [address] [facility] [address] [place] [address] 02/15/2024 Provider [facility] [address] [facility] [address] [place] [address] 12/13/2024 Augusto Cai Generalized anxiety disorder F41.1 Assessments Encounter Date Diagnosis (ICD Code) Assessment [...] The patient will require assistance with [employer] disability paperwork next year. Plan: - Schedule a follow-up appointment closer to the paperwork deadline to discuss and assist with the process - Review the patient's medical history and current status to ensure accurate documentation for disability determination 12/13/2024 Generalized anxiety disorder (ICD-10 - F41.1) 07/06/2024 [...] The patient will require assistance with [employer] disability paperwork next year. Plan: - Schedule a follow-up appointment closer to the paperwork deadline to discuss and assist with the process - Review the patient's medical history and current status to ensure accurate documentation for disability determination Plan Of Treatment Next Appt Details Provider Name:Augusto blanc, 01/17/2025 04:00:00 PM, [address] [facility] [address], [facility] [address], [place], [address], Insurance Providers Payer Name Payer Address Payer Phone Subscriber Number Group Number Insured Name Patient Relationship to Insured Coverage Start Date Coverage End Date [employer] [address] [place] [address] [id number] VARGAS Self - patient is the insured Medical (General) History Medical History History ICD Code Problems: Bipolar disorder in remission Generalized anxiety disorder , Surgical History Surgery Date(Month/Year) Tonsilectomy/adenoids 09/29/1991 Removal of gallbladder (02513) 7 Hysterectomy (77040) 09/29/2000
--- OUTSIDE RECORDS SUMMARY | 2024-12-31 11:43 | XMS_ITS | Clinical Summary ---
Author Organization [facility] [employer] Address [address] [place] [address] Care Team Providers Care Automotive Parts Manager Name Role Phone Ivy Feldman RN Unavailable Unavailable Torin Hercules DO Primary Care Provider [phone] Source Comments [facility],non-owned Affiliates and Associated Physician Practices is amultiple site organization consisting of ambulatory clinics and hospital sitesin [place], [place], [place] and [place]. This disclosure is being madepursuant to the Care Everywhere program and may not contain all information available regarding this patient. Last updated 18.[facility] [employer] Allergies Active Allergy Reactions Criticality Noted Date [...] female 11/26/2011 Overview (04/02/2018): Overview: Mamms @ [facility] 12/2013 negative 09/2014 TREE [...] COVID-19 VACCINE (1 - 2023- season) 2024 MAMMOGRAM 07/23/2024 07/23/2022, 03/2021, 04/15/2019, Additional history exists INFLUENZA VACCINE (Season Ended) 2025 Respiratory Syncytial Virus (RSV) Vaccine Pt: or [...] Recently Relevant to Health Maintenance Care Teams Automotive Parts Manager Relationship Specialty Start Date End Date Ivy Feldman, RN PCP - OBGYN Nurse Practitioner 01/06/13 Torin Hercules DO [address] [place] [address] PCP - General 04/23/21
[2024-12-31 14:17] LABS: INR 0.9; Prothrombin Time 12.4 Seconds (11.1-14.7)
[2024-12-31 15:39] LABS: Alanine Aminotransferase 14 U/L (6-35); Albumin Level 4.3 g/dL (3.5-5.1); Alkaline Phosphatase 96 U/L (38-126); Aspartate Amino Transferase 22 U/L (14-36); Bilirubin,Total 0.4 mg/dL (0.2-1.3)
[2024-12-31 15:47] LABS: Iron 71 ug/dL (37-170)
[2024-12-31 15:56] LABS: Percent Iron Saturation 30 % (20-50)
[2024-12-31 16:16] LABS: Hepatitis B Surface Antigen Negative (Negative)
[2024-12-31 16:22] LABS: HAV RESULT Negative (Negative); Hepatitis B Core IgM Result Negative (Negative)
[2024-12-31 16:33] LABS: Hepatitis C Virus Antibody Negative (Negative)
[2025-01-01 14:24] LABS: GGT 9 U/L (3-65)
[2025-01-02 01:48] LABS: Ceruloplasmin 33 mg/dL (14-48)
[2025-01-03 06:58] LABS: Alpha Fetoprotein Tumor Marker 1.2 ng/mL
[2025-01-04 20:44] LABS: Actin Antibody (IgG) <20 U (<20); LKM 1 Antibody <=20.0 U (<=20.0)
[2025-01-05 14:49] LABS: Anti Nuclear Antibody Pattern Nuclear, Homogeneous
[2025-01-05 20:38] LABS: Mitochondrial (M2) Ab (IgG) <20.0 U
== END 2024-12-31 11:19 | disposition home or self-care (01) ==
LOC: ANHGOSHLAB 11:19
PROVIDERS: PCP Family Medicine; Visit Provider Nurse Practitioner Family
DX: R79.89 Other specified abnormal findings of blood chemistry (principal); K74.60 Unspecified cirrhosis of liver
CPT/HCPCS: 36415; 80074; 80076; 81596; 82104; 82105; 82390; 82728; 82977; 83516; 83520; 83540; 83550; 85610; 86038; 86039; 86376

== ENCOUNTER 2025-02-11 11:10 | Outpatient (NON) | payer OTHER, SELFPAY ==
--- OUTSIDE RECORDS SUMMARY | 2025-02-11 11:14 | XMS_ITS | Clinical Summary ---
Author Organization [facility] Address [address] [place] [address] Care Team Providers Care Panel Edge Sealer Name Role Phone Ivy Feldman RN Unavailable Unavailable Torin Hercules DO Primary Care Provider [phone] Source Comments [facility],non-owned Affiliates and Associated Physician Practices is amultiple site organization consisting of ambulatory clinics and hospital sitesin [place], [place], [place] and [place]. This disclosure is being madepursuant to the Care Everywhere program and may not contain all information available regarding this patient. Last updated 18.[facility] [employer] Allergies Active Allergy Reactions Criticality Noted Date Comments Celecoxib Itching Diclofenac-Misoprostol Rash Medium 05/11/2008 Diclofenac-Misoprostol Other unsure Nitrofurantoin Rash Medium 05/11/2008 Penicillins Itching Low 12/05/2017 Sertraline Swelling Low 12/05/2017 pelvic swelling Medications * Be aware that medications may not be up to date on this document. Alwaysverify current medications with the patient. clonazePAM (KLONOPIN) 2 MG tablet Take by mouth at bedtime Active Multiple Vitamins-Minera ls (ONE-A-DAY 50 PLUS PO) Active lamoTRIgine (LAMICTAL) 200 MG tablet TK 1 T PO QAM AND 2 TS QHS 5 8 Active albuterol HFA (PROVENTIL;VENT JANIS;PROAIR) 108 (90 Base) MCG/ACT inhaler ProAir HFA 90 mcg/actuation aerosol inhaler INHALE 2 PUFFS PO QID PRF BREATHING Active FLUoxetine (PROZAC) 10 MG tablet fluoxetine 10 mg tablet Active meloxicam (MOBIC) 15 MG tablet meloxicam 15 mg tablet TK 1 T PO QD Active estradiol (VAGIFEM) 10 MCG vaginal tablet Insert 1 (one) tablet into the vagina every Friday & 8 tablet 11 1 Active Meth-Hyo-M Bl-Na Phos-Ph Aly (URIBEL) 118 MG Take 1 (one) capsule by mouth 2 times daily as needed 40 capsule 1 Active Cholecalciferol (VITAMIN D) 50 MCG (2000 UT) capsule Take 2,000 Units by mouth once daily 1 Active Linzess 145 MCG capsule TAKE 1 CAPSULE BY MOUTH DAILY 30 MINUTES BEFORE FIRST MEAL OF THE DAY ON AN EMPTY STOMACH 30 capsule 11 3 Active Active Problems Problem Noted Date Diagnosed [...] female 11/26/2011 Overview (04/02/2018): Overview: Mamms @ [facility] 12/2013 negative 09/2014 TREE Dx Mamm [...] drink = 0.6 oz pur e alcohol) Comments No Sex and Gender Information Value Date Recorded Sex Assigned at Not on file 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 us Monse Bass MD MAMMO ORDERABLES Final Res ult from Last 3 Months or Most Recently Relevant to Health Maintenance Insurance [facility] Address: [facility] [id number] [place] [address] [employer] SELF PAY NO INSURANCE Member Subscriber Plan / Payer (Ef fective for All Dates) Name:Kayla Mason Member ID:Not on file Relation to Subscriber:Not on file Name:KAYLA MASON Subscriber ID:Not on file (Home) Address: [address] [place] [id number] Payer ID:Not on file Group ID:Not on file Type:Self Pay Address: [place], [place] [employer] Care Teams Panel Edge Sealer Relationship Specialty Start Date End Date Ivy Feldman RN PCP - OBGYN Nurse Practitioner 01/06/13 Torin Hercules DO [address] [place] [address] PCP - General 04/23/21
== END 2025-02-11 11:11 | disposition home or self-care (01) ==
LOC: ANHGOSHLAB 11:11
PROVIDERS: PCP Family Medicine; Visit Provider Family Medicine
DX: R30.0 Dysuria (principal)
CPT/HCPCS: 87086

== ENCOUNTER 2025-03-16 08:45 | Outpatient (RCR) | payer OTHER, SELFPAY ==
--- NOTE | 2024-12-16 14:29 | OPREHPOC ---
Outpatient Therapy Plan of Care This is a Multidisciplinary Plan of Care that may contain components documented by all disciplines (PT, OT, and ST.) PT Problem 1 PT Problem #1 Knowledge Deficit PT Goal 1 Goal / Goal Update 1. Pt to be IND with issued HEP 2. Pt to report 80% complaince with her HEP Target Visit 8 PT Problem 2 PT Problem #2 Pain PT Goal 1 Goal / Goal Update 1. Pt to report knee pain no greater than 3/10 in the last week. 2. Pt to report being able to walk a mile without an increase in knee pain. Target Visit 8 PT Problem 3 PT Problem #3 Impaired Range of Motion PT Goal 1 Goal / Goal Update 1. pt to increase active knee flexion ROM to 125 deg. Target Visit 8 PT Problem 4 PT Problem #4 Impaired Gait PT Goal 1 Goal / Goal Update 1. pt to ambulate with equal stride length and equal arm swing. Target Visit 8
--- NOTE | 2024-12-16 14:29 | PTOPEVAL1 ---
Assessment and note entered by Rodrigue Radford, PT, DPT Evaluation Information Assessment Status Evaluation Diagnosis L knee pain ICD-10 Condition Codes (PT) Pain in left knee M25.562 Subjective Information Pt states she had a L TKA on 08/04/24, she states she did not get the therapy she should have. She completed 4 weeks of HH PT, and 6 weeks of OP PT. She states her knee aches. She reports multiple foot and ankles issues which she is seeing a director of web marketing for, states she walks on the outside of her and this is hurting her knee. Pt states when she was last discharged from therapy that was told she had hip weakness, was given an HEP to address these, reports zero compliance with these. States she is also no longer stretching her knee. Reports a 5/10 at rest and 8/10 when walking. She states her pain is worse than before her surgery. Reported Pain Level Pain Score 5: Self Report Assessment PT Clinical Summary Pt presents to therapy today for her initial evaluation following a recent L TKA, she reports residiual knee pain and gait deviations d/t antwon hammer toes. Today she demonstrates decreased active knee flexion ROM compared to her recent discharge reports. She also demonstrate L ankle tightness and weakness when compared to her R side . Having higher pain reports than in the recent 2 months. Skilled therapy services are indicated to address the deficits noted above, to manage pain, to improve functional mobility, and to return to PLOF. Plan of Care Interventions Electrical Stimulation,Gait Training,Hot Pack/Cold Pack,Manual Therapy,Neuro Re-education,Patient/ Caregiver Education,Therapeutic Activities, Therapeutic Exercise PT Services Indicated Yes Treatment Frequency and 2x/wk for 8 visits Duration These treatments will address the objective and functional deficits as defined above. The patient will be advanced safely and appropriately in order for the patient to progress towards his/her prior level of function. Additional exercises will be introduced and as well as a comprehensive home exercise program upon discharge, if needed, ?to ensure carryover of functional gains achieved in the clinic. This treatment plan has been reviewed and agreement upon by the patient.
--- NOTE | 2025-01-13 15:50 | OPREHPOC ---
Outpatient Therapy Plan of Care This is a Multidisciplinary Plan of Care that may contain components documented by all disciplines (PT, OT, and ST.) PT Problem 1 PT Problem #1 Knowledge Deficit PT Goal 1 Goal / Goal Update 1. Pt to be IND with issued HEP 2. Pt to report 80% complaince with her HEP 01/12/25: 1. met 2. met Target Visit 8 PT Problem 2 PT Problem #2 Pain PT Goal 1 Goal / Goal Update 1. Pt to report knee pain no greater than 3/10 in the last week. 2. Pt to report being able to walk a mile without an increase in knee pain. 01/13/25: 1-2. not met Target Visit 8 PT Problem 3 PT Problem #3 Impaired Range of Motion PT Goal 1 Goal / Goal Update 1. pt to increase active knee flexion ROM to 125 deg. 01/13/25: 1. met Target Visit 8 PT Problem 4 PT Problem #4 Impaired Gait PT Goal 1 Goal / Goal Update 1. pt to ambulate with equal stride length and equal arm swing. 01/13/25: 1. not met Target Visit 8
--- NOTE | 2025-01-13 15:50 | PTOPPROG ---
Assessment and note entered by Rodrigue Radford, PT, DPT Evaluation Information Assessment Status Progress Diagnosis L knee pain ICD-10 Condition Codes (PT) Pain in left knee M25.562 Subjective Information Pt states her flexibility has improved, she states she has realized how important strength is. She states stairs are still a big obstacle for her. States her pain at the worst is still up to an 8/ 10, when going on stairs and when walking in the grass. Assessment PT Clinical Summary Pt presents to therapy today for her progress report following 8 visits of skilled therapy to treat L knee pain and gait deviations d/t antwon hammer toes. Today she demonstrates improve knee motion and kne strength. She continues to have gait deviations and significant pain when ambulating straight. She continues to have decreased L ankle and toe ROM impacting her ability for toe off during ambulation. Continuation of skilled therapy services are indicated to address the deficits noted above, to manage pain, to improve functional mobility, and to return to PLOF. Plan of Care Interventions Electrical Stimulation,Gait Training,Hot Pack/Cold Pack,Manual Therapy,Neuro Re-education,Patient/ Caregiver Education,Therapeutic Activities, Therapeutic Exercise PT Services Indicated Yes Treatment Frequency and 2x/wk for 8 visits Duration These treatments will address the objective and functional deficits as defined above. The patient will be advanced safely and appropriately in order for the patient to progress towards his/her prior level of function. Additional exercises will be introduced and as well as a comprehensive home exercise program upon discharge, if needed, ?to ensure carryover of functional gains achieved in the clinic. This treatment plan has been reviewed and agreement upon by the patient.
--- NOTE | 2025-01-25 13:35 | PCPTNOTE ---
Patient called to cancel due to illness.
--- NOTE | 2025-02-16 12:14 | PTOPPROG ---
Assessment and note entered by Damian Proctor Evaluation Information Assessment Status Progress Diagnosis L knee pain ICD-10 Condition Codes (PT) Pain in left knee M25.562,Pain in left ankle and joints of left foot M25.572 Subjective Information Pt. reports that she is still having pain in left foot and knee. She reports that she is continuing to make a conscious effort to improve her gait mechanics. she feels she has been walking better, but still notes that she can revert to faulty mechanics. She has noticed a decrease in her pain since beginning therapy, and attributes the decrease to improved mobility in her left ankle. She states that stairs are still a difficult task and feels she has to change her mechanics with stair navigation due to lack of adequate ankle mobility. Pt. continues to have a primary goal of decreased foot and knee pain on the left and improving her ability to navigate steps. She reports that she would like to continue with skilled PT at this time. Assessment PT Clinical Summary Mrs. Castañeda has attended a total of 13 treatment sessions. Initial treatment focused on knee mobility and has recently transitioned to improving mobility at the left foot and ankle. Pt . provides subjective improvements in regards to pain and mobility, however still note impairments with functional activities, including gait over level surface and stair navigation, due to lack of adequate l.e. mobility and strength. Recommend continued skilled PT at this time to continue to improve left toe and ankle mobility, as well as improve proximal and distal l.e. strength in order to assist with the pt. being able to achieve her overall goal of improve gait/stair navigation and reduced left knee and ankle pain. New goals established on this date. Plan of Care Interventions Gait Training,Hot Pack/Cold Pack,Manual Therapy, Neuro Re-education,Patient/Caregiver Education, Therapeutic Activities,Therapeutic Exercise PT Services Indicated Yes Treatment Frequency and 1x/week x 4 visits. Focus on improving ankle and Duration toe mobility through manual techniques and stretching. Focus on proximal and distal l.e. strength to establish improved stability with standing activities and to improve standing endurance. Continue to view gait mechanics for improved toe off on the left. These treatments will address the objective and functional deficits as defined above. The patient will be advanced safely and appropriately in order for the patient to progress towards his/her prior level of function. Additional exercises will be introduced and as well as a comprehensive home exercise program upon discharge, if needed, ?to ensure carryover of functional gains achieved in the clinic. This treatment plan has been reviewed and agreement upon by the patient.
== END 2025-03-16 23:59 | disposition home or self-care (01) ==
LOC: ANHGOSHPT 08:45
PROVIDERS: PCP Family Medicine; Visit Provider Orthopaedic Surgery
DX: Z47.1 Aftercare following joint replacement surgery (principal); Z96.652 Presence of left artificial knee joint
CPT/HCPCS: 97110; 97112; 97116; 97140; 97161; 97530

== ENCOUNTER 2025-03-31 11:40 | Outpatient (CLI) | payer OTHER, SELFPAY ==
--- OUTSIDE RECORDS SUMMARY | 2025-03-31 11:45 | XMS_ITS | Clinical Summary ---
Author Organization [facility] Address [address] [facility] [place] [address] Care Team Providers Care Bell Ringer Name Role Phone Ivy Feldman RN Unavailable Unavailable Torin Hercules DO Primary Care Provider [phone] Source Comments [facility],non-owned Affiliates and Associated Physician Practices is amultiple site organization consisting of ambulatory clinics and hospital sitesin [place], [place] and [place]. This disclosure is being madepursuant to the Care Everywhere program and may not contain all information available regarding this patient. 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 Gender Identity Not on file Sexual Orientation [...] 10:42 AM CDT Height 170.2 cm (5' 7) 07/05/2021 10:42 AM CDT Body Mass Index [...] Recently Relevant to Health Maintenance Insurance [facility] Address: [facility] [id number] [phone] [employer] SELF PAY NO INSURANCE Member Subscriber Plan / Payer (Ef fective for All Dates) Name:Kayla Mason Member ID:Not on file Relation to Subscriber:Not on file Name:KAYLA MASON Subscriber ID:Not on file (Home) Address: [address] [place] [id number] Payer ID:Not on file Group ID:Not on file Type:Self Pay Address: [place], [place] [employer] Care Teams Bell Ringer Relationship Specialty Start Date End Date Ivy Feldman RN PCP - OBGYN Nurse Practitioner 01/06/13 Torin Hercules DO [address] [place] [address] PCP - General 04/23/21
--- OUTSIDE RECORDS SUMMARY | 2025-03-31 11:45 | XMS_ITS | Patient Health Record ---
Author Organization [facility] As [facility] Address [address] [place] [address] Care Team Providers Care Song Plugger Name Role Phone Mona Mack DO Primary Care Provider UnavailAugusto Sexton Unavailable [phone] Allergies Allergen (clinical drug ingredient) Drug/Non Drug [...] % (0.1 mg/gram) Vaginal *[facility]* 11/11/2023 Active Linzess 145 MCG Oral 11/11/2023 Act rosario Omeprazole 20 MG Oral 11/11/2023 Ac tive lamoTRIgine 200 MG TAKE 1 TABLET BY MOUTH TWICE DAILY; Duration: 90 Active lamoTRIgine 200 MG 1 tablet Oral twice a day; Duration: 30 days Active clonazePAM 1 MG 1 tablet Oral Once a day; Duration: 30 days 02/08/2025 Active Immunizations Vaccine Route Administration Date Status [...] disorder, most recent episode mixed, in remission ([id number]) Bipolar disorder, currently in remission, most recent episode unspecified (F31.70) 01/12/2024 Active confirmed Problem Generalized anxiety disorder (F41.1) 01/12/2024 Active confirmed Vital Signs Heart Rate 76 /min 01/17/2025 Height-cm 170.18 cm 01/17/2025 Blood pressure diastolic 70 mm Hg 01/17/2025 Weight-kg 76.66 kg 01/17/2025 Height 67.00 in 01/17/2025 Blood pressure systolic 102 mm Hg 01/17/2025 Weight 169 lbs 01/17/2025 BMI 26.47 kg/m2 01/17/2025 Encounters Encounter Location Date Provider Diagnosis [facility] [address] [address] 07/06/2024 Augusto Mayaa Generalized anxiety disorder F41.1 and Bipolar disorder, currently in remission, most recent episode unspecified F31.70 [facility] [employer] [address] [address] 01/17/2025 Augusto Cai Bipolar disorder, currently in remission, most recent episode unspecified F31.70 ; Encounter for screening for cardiovascular disorders Z13.6 ; Encounter for screening for depression Z13.31 and Generalized anxiety disorder F41.1 [facility] [place] [id number] [address] 12/13/2024 Augustotyrone Wagneroza Generalized anxiety disorder F41.1 [facility] [address] [address] 01/24/2025 Augusto Cai [facility] [employer] [address] [address] 02/04/2025 Augusto Mayaa Assessments Encounter Date Diagnosis (ICD Code) Assessment [...] 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 Plan: - Schedule a follow-up appointment closer to the paperwork deadline to discuss and assist with the process - Review the patient's medical history and current status to ensure accurate documentation for disability determination 12/13/2024 Generalized anxiety disorder (ICD-10 - F41.1) 01/17/2025 Bipolar disorder, currently in remission, most recent episode unspecified (ICD-10 - F31.70) lamotrigine + estradiol (hormone replacement) consider incr. lamotrigine maint. dose 2-fold, initial dose escalation unchanged; no change if also on carbamazepine , phenytoin, phenobarbital , primidone or rifampin: combo may decr. lamotrigine levels by 50% (UGT induced) 01/17/2025 Encounter for screening for cardiovascular disorders (ICD-10 - Z13.6) 07/06/2024 Bipolar disorder, currently in remission, most recent episode unspecified (ICD-10 - F31.70) lamotrigine + estradiol (hormone replacement) consider incr. lamotrigine maint. dose 2-fold, initial dose escalation unchanged; no change if also on carbamazepine , phenytoin, phenobarbital , primidone or rifampin: combo may decr. 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 Plan: - Schedule a follow-up appointment closer to the paperwork deadline to discuss and assist with the process - Review the patient's medical history and current status to ensure accurate documentation for disability determination 01/17/2025 Encounter for screening for depression (ICD-10 - Z13.31) 01/17/2025 Generalized anxiety disorder (ICD-10 - F41.1) 01/17/2025 [facility], female patient with history of bipolar disorder, presents with increased anxiety following recent diagnoses of celiac disease and liver sclerosis, as well as knee surgery complications. Anxiety Assessment: Patient reports experiencing significant anxiety, particularly in public settings such as stores. This anxiety appears to be exacerbated by recent health diagnoses and life changes, including celiac disease and liver sclerosis. Patient also mentioned thoughts of self-harm related to these stressors, though no active plans were reported. The anxiety seems to have become more prominent than previous bipolar symptoms. Plan: - Continue clonazepam 1 mg PO daily for anxiety management. - Assess efficacy of current medication regimen at follow-up appointment in 3 months. - Request and review recent lab results to inform treatment decisions. Bipolar Disorder Assessment: Patient has a history of bipolar disorder, currently managed with lamotrigine. While anxiety has become the predominant concern, continued mood stabilization remains important. Plan: - Continue lamotrigine 200 mg PO twice daily. - Monitor for any mood changes or return of bipolar symptoms. Celiac Disease Assessment: Recently diagnosed with celiac disease, necessitating significant dietary changes. This diagnosis was made following unexplained weight loss after discontinuing Wegovy. Plan: - Continue gluten-free diet as recommended. - Follow up with gastroenterology every 6 months for ultrasound, blood tests, and gluten level monitoring. Liver Sclerosis- per pt report Assessment: Patient recently diagnosed with liver sclerosis, etiology unclear as patient denies history of alcohol abuse or drug use. This diagnosis is causing significant stress and anxiety for the patient. Plan: - Follow up with hepatology every 6 months for ultrasound and blood tests. - Proceed with scheduled fibroscan on March 14 to assess liver fibrosis progression. the note is transcribed using speech recognition software. It is a reflection of a visit with the patient. It might have some inaccuracy, including medication names and transcribing errors, though efforts have been made to correct them. Plan Of Treatment Next Appt Details Provider Name:Augusto blanc, 04/19/2025 11:15:00 AM, [address], [facility] [address], [place], [address], Insurance Providers Payer Name Payer Address Payer Phone Subscriber Number Group Number Insured Name Patient Relationship to Insured Coverage Start Date Coverage End Date [employer] - [employer] [address] [place] [address] [id number] ANGELES LANGFORD Self - patient is the insured Medical (General) History Medical History History ICD Code Problems: Bipolar disorder in remission Generalized anxiety disorder , Surgical History Surgery Date(Month/Year) Tonsilectomy/adenoids 09/29/1991 Removal of gallbladder (26983) 7 Hysterectomy (67524) 09/29/2000 knee replacement
[2025-03-31 12:54] LABS: Alanine Aminotransferase 15 U/L (6-35); Albumin Level 4.1 g/dL (3.5-5.1); Alkaline Phosphatase 84 U/L (38-126); Anion Gap 5 mmol/L (4-12); Aspartate Amino Transferase 57 U/L (14-36); Bilirubin,Total 0.4 mg/dL (0.2-1.3); Blood Urea Nitrogen 14 mg/dL (7-17); Calcium 9.3 mg/dL (8.4-10.2); Carbon Dioxide 29 mmol/L (22-30); Chloride 106 mmol/L (98-107); Cholesterol 162 mg/dL (0-200); Estimated Glomerular Filt Rate > 60; Glucose 85 mg/dL (65-110); HDL Direct 85 mg/dL; Potassium 4.0 mmol/L (3.4-5.0); Sodium 140 mmol/L (137-145); Total Protein 6.8 g/dL (6.3-8.2); Triglycerides 44 mg/dL (<150)
== END 2025-03-31 11:41 | disposition home or self-care (01) ==
LOC: ANHGOSHLAB 11:41
PROVIDERS: PCP Family Medicine; Visit Provider Nurse Practitioner
DX: E78.5 Hyperlipidemia, unspecified (principal); I10 Essential (primary) hypertension; E55.9 Vitamin D deficiency, unspecified
CPT/HCPCS: 36415; 80053; 80061; 82306

== ENCOUNTER 2025-04-05 11:08 | Outpatient (CLI) | payer OTHER, SELFPAY ==
--- OUTSIDE RECORDS SUMMARY | 2025-04-05 11:11 | XMS_ITS | Clinical Summary ---
Author Organization [facility] Address [address] [place] [address] Care Team Providers Care Neurosurgery Physician Name Role Phone Ivy Feldman RN Unavailable Unavailable Torin Hercules DO Primary Care Provider [phone] Source Comments [facility],non-owned Affiliates and Associated Physician Practices is amultiple site organization consisting of ambulatory clinics and hospital sitesin [place], [place], [place] and [place]. This disclosure is being madepursuant to the Care Everywhere program and may not contain all information available regarding this patient. 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 Gender Identity Not on file Sexual Orientation [...] Recently Relevant to Health Maintenance Insurance [employer] SELF PAY NO INSURANCE Member Subscriber Plan / Payer (Ef fective for All Dates) Name:Kayla Mason Member ID:Not on file Relation to Subscriber:Not on file Name:KAYLA MASON Subscriber ID:Not on file (Home) Address: [address] [place] [id number] Payer ID:Not on file Group ID:Not on file Type:Self Pay Address: [place], [place] [employer] Care Teams Neurosurgery Physician Relationship Specialty Start Date End Date Ivy Feldman RN PCP - OBGYN Nurse Practitioner 01/06/13 Torin Hercules DO [address] [place] [address] PCP - General 04/23/21
[2025-04-05 12:20] LABS: Add Urine Microscopic? NO; Appearance Urine Clear (Clear); Glucose Urine UA Negative (Negative); Leukocyte Esterase Ur Negative LEU/UL (Negative); Nitrate Urine Negative (Negative); Specific Grav Ur 1.016 (1.001-1.035)
== END 2025-04-05 11:09 | disposition home or self-care (01) ==
LOC: ANHGOSHLAB 11:09
PROVIDERS: PCP Family Medicine; Visit Provider Nurse Practitioner
DX: N20.0 Calculus of kidney (principal)
CPT/HCPCS: 81003

== ENCOUNTER 2025-04-05 11:29 | Outpatient (CLI) | payer OTHER, SELFPAY ==
--- NOTE | ~2025-04-05 | XR_ITS ---
XR abdomen/kub 1V Ordering provider: Sylvia Holder MEDICARE SPECIALIST-C History: . N20.0 - Calculus of kidney . Comparison: None. FINDINGS: BOWEL: Nonobstructive bowel gas pattern. ORGANOMEGALY: None. SIGNIFICANT PATHOLOGIC CALCIFICATIONS: None. OTHER: No free air is seen under the diaphragm. Levoscoliosis with degenerative changes. Bilateral severe hip osteoarthritic changes. Bilateral sacro iliitis. IMPRESSION: NO ACUTE ABDOMINAL FINDINGS. Reviewed, dictated and finalized at location A.
== END 2025-04-05 11:30 | disposition home or self-care (01) ==
LOC: GOSHIMG 11:29
PROVIDERS: PCP Physician Assistant; Visit Provider Nurse Practitioner
DX: N20.0 Calculus of kidney (principal)
CPT/HCPCS: 74018

== ENCOUNTER 2025-04-06 10:39 | Outpatient (RCR) | payer OTHER, SELFPAY ==
--- NOTE | 2025-04-06 09:49 | PTOPDC ---
Assessment and note entered by Damian Proctor Evaluation Information Assessment Status Discharge Diagnosis L knee pain ICD-10 Condition Codes (PT) Pain in left knee M25.562,Pain in left ankle and joints of left foot M25.572 Subjective Information Pt. reports that she is moving better overall. She reports that she has been more consistent with her exercise. She still experiences on/off left knee pain, despite her progress. She states that she is having occasional left foot pain, but much less frequent. Pt. reports that stairs Reported Pain Level Pain Score 0,3: Self Report Assessment PT Clinical Summary Pt. has attended a total of 18 sessions. In this time she has demonstrated improvements in FLR, gait mechanics, l.e. ROM and l.e. strength. She presents with minimal functional deficits at this time. She has been provided a comprehensive HEP. She is appropriate for discharge at this time. Plan of Care PT Services Indicated No
== END 2025-04-06 15:02 | disposition home or self-care (01) ==
LOC: ANHGOSHPT 10:39
PROVIDERS: PCP Physician Assistant; Visit Provider Orthopaedic Surgery
DX: Z47.1 Aftercare following joint replacement surgery (principal); Z96.652 Presence of left artificial knee joint
CPT/HCPCS: 97110; 97530

== ENCOUNTER 2025-05-19 14:24 | Outpatient (CLI) | payer OTHER, SELFPAY ==
--- NOTE | ~2025-05-19 | XR_ITS ---
XR hand RT min 3V, XR wrist RT min 3V 05/19/2025 14:43 (accession [id number]), 05/19/2025 14:42 (accession [id number]) Indication: Right hand and wrist pain Procedure: 3 views right hand and 4 views right wrist Comparison: No prior studies for comparison. Findings: Osteopenia. There is severe osteoarthritis of the first carpometacarpal joint with adjacent loose bodies. There is mild osteoarthritis of the first MCP and IP joints. No acute fracture. No focal soft tissue abnormality. Impression: 1: Polyarticular osteoarthritis of the first digit, most severe at the carpal metacarpal joint. Reviewed, dictated and finalized at location O. Impression: 1: Polyarticular osteoarthritis of the first digit, most severe at the carpal m etacarpal joint. Impression: 1: Polyarticular osteoarthritis of the first digit, most severe at the carpal m etacarpal joint.
== END 2025-05-19 14:25 | disposition home or self-care (01) ==
PROVIDERS: PCP Anesthesiology Pain Medicine; Visit Provider Family Medicine
DX: M79.644 Pain in right finger(s) (principal); M25.531 Pain in right wrist
CPT/HCPCS: 73110; 73130

== ENCOUNTER 2025-05-31 19:34 | Emergency (ER) | payer OTHER, SELFPAY ==
--- NOTE | ~2025-05-31 | XR_ITS ---
XR hand LT min 3V 05/31/2025 19:54 Indication: Status post fall. Left first finger pain. Procedure: 3 views left hand Comparison: No prior studies for comparison. Findings: Osteopenia. 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 No fracture, subluxation or dislocation. Mild soft tissue swelling adjacent to the first carpal metacarpal joint. No foreign bodies. Impression: 1: No acute fracture. Reviewed, dictated and finalized at location O. Impression: 1: No acute fracture.
[2025-05-31 19:45] VITALS: BP 104/81; PULSE 72; RESP 16; TEMP 36.4; O2SAT 98
--- NOTE | 2025-05-31 20:00 | ED.UPPEXIN ---
HPI - Extremity Injury (Upper) General Chief Complaint: Extremity Injury, Upper Stated Complaint: L Hand Pain Time Seen by Provider: 05/31/25 20:00 Source: patient, RN notes reviewed and old records reviewed Mode of arrival: ambulatory Limitations: no limitations History of Present Illness HPI narrative: 59-year-old female presents to the [facility] with left hand pain. Patient reports that her dog made her fall landing on her hand. Left 1st medical carpal tenderness, mild bruising noted. Does have good range of motion, sensation intact, capillary refill under 2 seconds. Related Data Home Medications ?Medication ?Instructions ?Recorded ?Confirmed ?Last Taken ?Type vibegron 75 mg tablet (Gemtesa) 75 mg PO DAILY 05/07/22 05/19/25 12/12/24 History lamotrigine 200 mg tablet 200 mg PO .COMPLEX 09/06/22 05/19/25 12/13/24 08:45 History estradiol 0.01% (0.1 mg/gram) 1 appful vaginal DAILY 02/18/23 05/19/25 12/12/24 History vaginal cream cholecalciferol (vitamin D3) 25 25 mcg PO DAILY 12/02/23 05/19/25 12/12/24 History mcg (1,000 unit) capsule qgqpqcek-degqzxk-yrdx-lutein tablet 1 tablet PO DAILY 12/02/23 05/19/25 12/12/24 History clonazepam 1 mg tablet 1 mg PO DAILY 03/04/24 05/19/25 12/12/24 History calcium 600 mg (as 1 cap PO DAILY 12/03/24 05/19/25 12/12/24 History carbonate)-vitamin D3 5 mcg (200 unit) capsule (Calcium 600 + D(3)) cranberry 500 mg capsule 500 mg PO BID 04/05/25 05/19/25 Unknown History famotidine 20 mg tablet mg PO PRN 05/19/25 05/19/25 Unknown History Allergies Allergy/AdvReac Type Severity Reaction Status Date / Time nitrofurantoin (From Allergy Severe Rash Verified 05/23/25 08:10 Macrobid) cinnamon Allergy Mild Blister Verified 05/23/25 08:10 codeine Allergy Unknown vaginal Verified 05/23/25 08:10 itching Penicillins Allergy Unknown Itching Verified 05/23/25 08:10 ciprofloxacin AdvReac Unknown joint pain Verified 05/23/25 08:10 Review of Systems Review of Systems: All systems reviewed & are unremarkable except as noted in HPI and below Constitutional: Constitutional: Reports no additional constitutional complaints ENT: Reports system reviewed and no additional complaints, except as documented Musculoskeletal: Musculoskeletal: Reports as per HPI Integumentary/Breasts: Skin/Breast: Reports system reviewed and no additional complaints, except as docu PMFSH Past Medical History Medical History Celiac disease Cirrhosis 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 Enamorado History of bladder suspension procedure History of hysterectomy 2000 History of bunionectomy of left great toe 2016, 2018 History of left knee replacement 2004 History of right knee joint replacement 1980 Hx of tubal ligation 1994 Hx of ovarian cystectomy 1987 & 1992 Hx of cholecystectomy mid 1994 Hx of tonsillectomy early 1090s Hx of hysterectomy 2000 Family History Family History Father Cancer of kidney Mother Cancer of kidney Hypertension Heart problem Daughter Anxiety Grandparent Diabetes mellitus Grandparent Alcoholism Unknown Depression High cholesterol Social History Social History (Updated 05/23/25 @ 08:11 by Bety Willson MA) Smoking status: Never smoker Second hand tobacco smoke exposure: Yes Additional smoking assessment comments: Denies any nicotine in system Alcohol intake: never Substance use: former Substance use type: marijuana Other substance usage details: 3 x day for 20 years Last use: 11/2019 Do You Feel Safe in your Home?: Yes Lack of Transportation: No Lack of Food: Never True Current Housing: I Have Housing Concerned About Future Housing: No Difficulty Paying Gas/Electric Bills: No Difficulty Paying for Meds: No Currently Unemployed: No Education: Master's Degree or Higher Difficulty w/ Childcare or Family Care: No Living arrangements: with family Additional living arrangements comments: Occupation/Education: retired Gender identity (if verbalized by the patient): Female Spiritual care concerns: No Comments At the time of my signature, I reviewed and agree with the nursing past medical, surgical, social, and family history. There is no relevant family history pertinent to the patient complaint. Exam Const: General: cooperative, no acute distress, well developed, alert, ill appearing chronically, uncomfortable and well nourished Nutritional Appearance: well nourished Orientation/consciousness: patient oriented x3 Limitations: no limitations HENMT: Head: normal to inspection Eyes: General: appearance normal, both eyes and all related structures Alignment and Position: alignment normal Neck: Neck: normal visual inspection, full ROM, no lymphadenopathy and no meningeal signs Chest: Chest palpation & inspection: normal inspection of the chest Resp: Effort & Inspection: normal respiratory effort and able to speak in complete sentences Cardio: Rate: regular rate Skin: General skin exam: normal color and no rashes or lesions noted Neuro: General: patient oriented x3, gait normal, moves all extremities and no meningeal signs Cognition (Neuro): normal cognition Speech: normal speech Gait exam (Neuro): Normal gait present Extrem: General: normal to inspection, full ROM, capillary refill normal and normal gait Left upper extremity: hand normal capillary refill, tenderness of the dorsal hand over the 1st metacarpal, vascular exam radial pulse present and normal capillary refill and normal ROM of fingers Psych: Appearance: grossly normal and well kempt Mental Status: mental status grossly normal Speech and movement: Normal speech and movement present and Clear speech present Affect: normal affect Attitude: cooperative Course Course Level of Care: Express Care Visit Vital Signs Vital signs: Vital Signs Temperature 97.6 F 05/31/25 19:45 Pulse Rate 72 05/31/25 19:45 Respiratory Rate 16 05/31/25 19:45 Blood Pressure 104/81 05/31/25 19:45 Pulse Oximetry 98 05/31/25 19:45 Temperature 97.6 F 05/31/25 19:45 Pulse Rate 72 05/31/25 19:45 Respiratory Rate 16 05/31/25 19:45 Blood Pressure 104/81 05/31/25 19:45 Pulse Oximetry 98 05/31/25 19:45 Reviewed MDM - Extremity Injury (Upper) MDM Narrative Medical decision making narrative: Patient sitting in exam room. Patient is nontoxic, vitals stable. Patient presents with left hand pain over the 1st metacarpal. X-ray negative for fracture Patient appropriate for outpatient treatment with close follow-up, Brian wrap applied. Discharge instructions reviewed with patient, as well as provided in writing per nursing staff. The instructions also include specific and strict return/GO TO THE ER as well as f/u information. All questions have been answered, and the patient deny any further questions with discharge and discharge plan. Some parts of this dictation were generated by voice recognition software and may contain typographical and/or grammatical inaccuracies. Differential Diagnosis Differential diagnosis: Likely sprain and strain of wrist and other (Hand fracture, hand contusion) Imaging Data Radiologist's impression: XR hand LT min 3V 05/31/2025 19:54 Indication: Status post fall. Left first finger pain. Procedure: 3 views left hand Comparison: No prior studies for comparison. Findings: Osteopenia. 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 No fracture, subluxation or dislocation. Mild soft tissue swelling adjacent to the first carpal metacarpal joint. No foreign bodies. Impression: 1: No acute fracture. Critical Care Time Critical Care Time Critical Care Time: No Discharge Plan Discharge Clinical Impression: Contusion of hand, left Patient Disposition: Home Condition: Stable Instructions: Antibiotic Form, Contusion in Adults (ED) Additional Instructions: Your Xray did not show a fracture. Ice should be applied to help reduce swelling. It can be used for 20 to 30 minutes, every 2-3 hours while awake. Do not apply ice directly to your skin. You can alternate ibuprofen 600mg and Tylenol 650mg every 4 hours as needed for pain If you take your Celebrex do not take ibuprofen. Please schedule a follow-up visit with your personal physician for further evaluation and treatment within 2 weeks especially if symptoms persist. For new or worsening symptoms go directly to the emergency room Patient Language: Citizen Of [place] Prescriptions: No Action lamotrigine 200 mg tablet 200 mg PO .COMPLEX Rx Instructions: 200 mg orally 1 QAM and 2 QHS; one in the morning and two at night. equals to 600 mg daily estradiol 0.01 % (0.1 mg/gram) cream 1 appful vaginal DAILY clonazepam 1 mg tablet 1 mg PO DAILY cranberry 500 mg capsule 500 mg PO BID Rx Instructions: administer with meals omeprazole 20 mg capsule,delayed release(DR/EC) 20 mg PO DAILY 90 Days Qty: 90 3RF Gemtesa 75 mg tablet 75 mg PO DAILY jfoukwbp-jniihfm-usnv-lutein Tablet 1 tablet PO DAILY cholecalciferol (vitamin D3) 25 mcg (1,000 unit) capsule 25 mcg PO DAILY famotidine 20 mg tablet PO PRN Calcium 600 + D(3) 600 mg-5 mcg (200 unit) capsule 1 cap PO DAILY Linzess 290 mcg capsule 290 mcg PO DAILY 90 Days Qty: 90 3RF celecoxib 200 mg capsule 200 mg PO BID PRN (Reason: pain) Qty: 60 1RF Follow-up/Referrals: Mona Mack DO [Primary Care Provider, [facility]] - 1 Week Clinical Impression: Contusion of hand, left Time of Disposition: 20:25
== END 2025-05-31 20:27 | disposition home or self-care (01) ==
PROVIDERS: Emergency Provider Nurse Practitioner; PCP Family Medicine
DX: S60.222A Contusion of left hand, initial encounter (principal); W19.XXXA Unspecified fall, initial encounter; K90.0 Celiac disease; K74.60 Unspecified cirrhosis of liver; K21.9 Gastro-esophageal reflux disease without esophagitis; F41.9 Anxiety disorder, unspecified; Z96.653 Presence of artificial knee joint, bilateral
CPT/HCPCS: 73130; 99213; G0463

== ENCOUNTER 2025-07-01 08:00 | Outpatient (CLI) | payer OTHER, SELFPAY ==
--- NOTE | ~2025-07-01 | US_ITS ---
ULTRASOUND ABDOMEN LIMITED (RIGHT UPPER QUADRANT) Clinical History: K74.60 - Unspecified cirrhosis of liver Comparison: Ultrasound 12/17/2024 Technique: Right upper quadrant sonography Findings: Liver: Nodular contour. Normal size. Heterogeneous echotexture. No intrahepatic biliary ductal dilatation. Normal hepatopedal flow main portal vein. No discrete liver lesion noted. Common Duct: 8 mm. Gallbladder: Removed. Pancreas: Unremarkable. IMPRESSION: 1. Cirrhosis. No discrete hepatic mass identified. Reviewed, dictated and finalized at location R.
== END 2025-07-01 08:01 | disposition home or self-care (01) ==
PROVIDERS: PCP Family Medicine; Visit Provider Nurse Practitioner Family
DX: K74.60 Unspecified cirrhosis of liver (principal)
CPT/HCPCS: 76705

== ENCOUNTER 2025-07-01 08:27 | Outpatient (CLI) | payer OTHER, SELFPAY ==
--- OUTSIDE RECORDS SUMMARY | 2025-07-01 08:32 | XMS_ITS | Clinical Summary ---
Author Organization [facility] Address [address] [place] [address] Care Team Providers Care Lead Massage Therapist Name Role Phone Ivy Feldman RN Unavailable [phone] Torin Hercules DO Primary Care Provider [phone] Source Comments [facility],non-owned Affiliates and Associated Physician Practices is amultiple site organization consisting of ambulatory clinics and hospital sitesin [place], [place], [place] and [place]. This disclosure is being madepursuant to the Care Everywhere program and may not contain all information available regarding this patient. 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 Gender Identity Not on file Sexual Orientation [...] of 2) 2013 SCREENING FOR DIABETES 08/17/2020 MAMMOGRAM 07/23/2024 07/23/2022, 03/2021, 04/15/2019, Additional history exists COVID-19 VACCINE ( - season) 2025 INFLUENZA VACCINE (#1) 2025 Respiratory Syncytial Virus (RSV) Vaccine Pt: [...] MASON Subscriber ID:Not on file (Home) Address: [address] [place] [phone] Payer ID:Not on file Group ID:Not on file Type:Self Pay Address: [place], [place] [employer] Care Teams Lead Massage Therapist Relationship Specialty Start Date End Date Ivy Feldman RN PCP - OBGYN Nurse Practitioner 01/06/13 Torin Hercules DO [address] [address] PCP - General 04/23/21
--- OUTSIDE RECORDS SUMMARY | 2025-07-01 08:32 | XMS_ITS | Patient Health Record ---
Author Organization [facility] [employer] Address [address] [place] [address] Care Team Providers Care Drum Tender Name Role Phone Mona Mack DO Primary Care Provider Unavailab Augusto Wolfe Unavailable [phone] Allergies Allergen (clinical drug ingredient) Drug/Non Drug Allergy documented on EMR Reaction Allergy Type Onset Date Status penicillin V PENICILLIN V (uncoded) Unknown Allergy 11/11/2023 Active ciprofloxacin Cipro Unknown Drug Allergy 11/11/2023 Ac tive nitrofurantoin, macrocrystals / nitrofurantoin, monohydrate Macrobid Unknown Drug Allergy 11/11/2023 Active codeine Codeine Unknown Drug Allergy 11/11/2023 Active Gluten Gluten Unknown Allergy Active Reason For Referral No Information Medications Medication SIG (Take, Route, Frequency, Duration) Notes Start Date End Date Status clonazePAM 1 MG Tablet TAKE 1 TABLET BY MOUTH ONCE DAILY.; Duration: 30 06/06/2025 Active Estradiol 0.01 % (0.1 mg/gram) Cream Vaginal *Pick strength-form from [employer] for eRX* 11/11/2023 Active Magnesium Active lamoTRIgine 200 MG Tablet 1 tablet Oral twice a day; Duration: 30 days 05/24/2025 Active lamoTRIgine 200 MG Tablet TAKE 1 TABLET BY MOUTH TWICE DAILY; Duration: 90 Active Omeprazole 20 MG Capsule Delayed Release Oral 11/11/2023 Active Linzess 145 MCG Capsule Oral 11/11/2023 Active Immunizations Vaccine Route Administration Date Status Comme nts Pfizer-[employer] Covid-19 Vac cine 1st dose Unknown 08/29/2021 Administered Pfizer-[employer]ion[employer] Covid-19 Vac cine 1st dose Unknown 09/29/2021 Administered Social History Tobacco Use: Social History Observation Description Date Details (start date - stop date) Never Smoker NA - NA Sex Assigned At : Social History Observation Description Sex Assigned At Female Social History Tobacco Use: Social Info Question Answer Notes Tobacco Control (Standard) Tobacco use: Nonsmoker Additional Details Category Social Info Options Details Migrated Social History Migrated Social History Alcohol Intake: None 12/12/2022,Tobacco Years: Never smoker 12/12/2022 Problems Problem Type SNOMED Code ICD Code Onset Dates Problem Status W/U Status Risk Notes Problem Bipolar I disorder, most recent episode mixed, in remission (90451806) Bipolar disorder, currently in remission, most recent episode unspecified (F31.70) 4 Active confirmed Problem Generalized anxiety disorder (22910412) Generalized anxiety disorder (F41.1) 4 Active confirmed Vital Signs Heart Rate 75 /min 05/24/2025 Height-cm 170.18 cm 05/24/2025 Blood pressure diastolic 80 mm Hg 05/24/2025 Weight-kg 80.74 kg 05/24/2025 Height 67.00 in 05/24/2025 Blood pressure systolic 117 mm Hg 05/24/2025 Weight 178 lbs 05/24/2025 BMI 27.88 kg/m2 05/24/2025 Encounters Encounter Location Date Provider Diagnosis [employer] [address] [facility] [address] [address] 07/06/2024 Augusto Cai Generalized anxiety disorder F41.1 and Bipolar disorder, currently in remission, most recent episode unspecified F31.70 [employer] [address] [facility] [address] [place] [address] 01/17/2025 Augusto Cai Bipolar disorder, currently in remission, most recent episode unspecified F31.70 ; Encounter for screening for cardiovascular disorders Z13.6 ; Encounter for screening for depression Z13.31 and Generalized anxiety disorder F41.1 [employer] [address] [facility] [address] [facility] [address] [place] [address] 04/19/2025 Augusto Cai Bipolar disorder, currently in remission, most recent episode unspecified F31.70 and Generalized anxiety disorder F41.1 [employer] [address] [facility] [address] [place] [address] 05/24/2025 Augustotyrone Cai Bipolar disorder, currently in remission, most recent episode unspecified F31.70 and Generalized anxiety disorder F41.1 [facility] [address] [place] [address] 12/13/2024 Augusto Cai Generalized anxiety disorder F41.1 [facility] [address] [place] [address] 01/24/2025 Augustotyrone Wagneroza [facility], [facility] [address] [place] [address] 02/04/2025 Augustotyrone Mayaa [facility], [facility] [address] [place] [address] 04/11/2025 Augusto Mayaa [facility], [facility] [address] [place] [address] 04/22/2025 Augusto Cai Bipolar disorder, currently in remission, most recent episode unspecified F31.70 [facility] [employer] [facility] [address] [place] [address] 05/05/2025 Augusto Wagneroza [facility], [facility] [address] [place] [address] 05/09/2025 Augustotyrone Cai Bipolar disorder, currently in remission, most recent episode unspecified F31.70 Assessments Encounter Date Diagnosis (ICD Code) Assessment Notes Treatment Notes Treatment Clinical Notes Section Notes 05/09/2025 Bipolar disorder, currently in remission, most recent episode unspecified (ICD-10 - F31.70) 05/24/2025 Bipolar disorder, currently in remission, most recent episode unspecified (ICD-10 - F31.70) lamotrigine + estradiol (hormone replacement) consider incr. lamotrigine maint. dose 2-fold, initial dose escalation unchanged; no change if also on carbamazepine, phenytoin, phenobarbital, primidone or rifampin: combo may decr. 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 Plan: - Schedule [...] decr. lamotrigine levels by 50% (UGT induced) 04/19/2025 Bipolar disorder, currently in remission, most recent episode unspecified (ICD-10 - F31.70) lamotrigine + estradiol (hormone replacement) consider incr. lamotrigine maint. dose 2-fold, initial dose escalation unchanged; no change if also on carbamazepine, phenytoin, phenobarbital, primidone or rifampin: combo may decr. 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 Plan: - Schedule a follow-up appointment closer to the paperwork deadline to discuss and assist with the process - Review the patient's medical history and current status to ensure accurate documentation for disability determination 05/24/2025 Generalized anxiety disorder (ICD-10 - F41.1) 01/17/2025 Encounter for screening for depression (ICD-10 - Z13.31) 01/17/2025 Generalized anxiety disorder (ICD-10 - F41.1) 01/17/2025 [facility], female patient with history of bipolar [...] efforts have been made to correct them. 04/19/2025 Lashell Mason, a patient with a history of cirrhosis and bipolar disorder, presents with symptoms of depression and hypomania for the past 2 weeks, including sleep disturbances, loss of interest, and increased anxiety. Bipolar Disorder with Mixed Features Assessment: Patient reports symptoms consistent with a mixed episode of bipolar disorder, including depressive symptoms (loss of interest, sleep disturbances, lack of motivation) and hypomanic features (racing thoughts, restlessness, anxiety). The onset of these symptoms occurred approximately 2 weeks ago. Patient attempted to self-manage by doubling her medications for a couple of nights, which helped with sleep but caused difficulty waking up. She then switched to using Tylenol PM (acetaminophen) with 50 mg of Benadryl, recently reducing to 25 mg without success. Current medications include Lamotrigine 400 mg and Clonazepam. Patient has a history of adverse reactions to atypical antipsychotics, including facial paralysis with an unspecified medication. Plan: - Start Rexulti 0.5 mg PO daily - Provided samples - Informed patient that effects may be noticeable within a couple of days - Discussed potential side effects, including sedation - Continue Lamotrigine 400 mg - Continue Clonazepam - Follow-up appointment scheduled in approximately one month to assess response to new medication Cirrhosis Assessment: Patient reports a diagnosis of cirrhosis, managed by Dr. Susan Bangura. Recent fibroscan results from March 28 indicated a score of 7, suggesting a low risk of progression to higher stages of liver disease. Plan: - Continue follow-up with Dr. Susan Bangura for cirrhosis management 05/24/2025 Other Angeles Mason female patient with history of psychiatric medication use, reports improved sleep and overall well-being, but experienced side effects from Rexulti. Medication management Assessment: Patient reports adverse effects from Rexulti, including akathisia (twitches) and significant weight gain (15 pounds) within the first two weeks of use. She independently reduced the dose to half of the prescribed 0.5 mg. Sleep disturbances, which were the initial reason for considering a Rexulti dose increase, have resolved with the patient's self-initiated use of magnesium supplements and Epsom salt foot soaks. Plan: - Discontinue Rexulti - Continue magnesium supplement at night - Continue Epsom salt foot soaks - Clonazepam Insomnia - Resolved Assessment: Patient reports significant improvement in sleep quality for the past week and a half following the initiation of magnesium supplementation at night and Epsom salt foot soaks. This improvement occurred without the need to increase Rexulti as previously considered. Plan: - Continue current sleep hygiene practices, including magnesium supplementation and Epsom salt foot soaks - Monitor sleep quality and report any recurrence of insomnia the note is transcribed using speech recognition software. It is a reflection of a visit with the patient. It might have some inaccuracy, including medication names and transcribing errors, though efforts have been made to correct them. Plan Of Treatment Next Appt Details Provider Name:Augusto blanc, 08/09/2025 11:15:00 AM, [address] [facility] [address], [facility] [address], [place], [address], Insurance Providers Payer Name Payer Address Payer Phone Subscriber Number Group Number Insured Name Patient Relationship to Insured Coverage Start Date Coverage End Date [employer] - Brenden [address] [place] [address] [id number] ANGELES LANGFORD Self - patient is the insured Medical (General) History Medical History History ICD Code Problems: Bipolar disorder in remission Generalized anxiety disorder , Surgical History Surgery Date(Month/Year) Tonsilectomy/adenoids 09/29/1991 Removal of gallbladder (90873) 7 Hysterectomy (71419) 09/29/2000 knee replacement
[2025-07-01 12:51] LABS: Hematocrit 42.0 % (37.0-47.0); Hemoglobin 12.9 g/dL (12.0-15.0); Mean Corpuscular HGB Conc 30.7 g/dl (32-36); Mean Corpuscular Hemoglobin 29.3 pg (26-34); Mean Corpuscular Volume 95.5 fl (80-100); Platelet Count Result 274 k/mm3 (150-375); Red Blood Count 4.40 M/mm3 (4.2-5.4); White Blood Count 7.0 K/mm3 (4.5-10.0)
[2025-07-01 13:07] LABS: INR 0.9; Prothrombin Time 12.4 Seconds (11.1-14.7)
[2025-07-01 13:56] LABS: Alanine Aminotransferase 14 U/L (6-35); Albumin Level 4.2 g/dL (3.5-5.1); Alkaline Phosphatase 104 U/L (38-126); Anion Gap 4 mmol/L (4-12); Aspartate Amino Transferase 39 U/L (14-36); Bilirubin,Total 0.3 mg/dL (0.2-1.3); Blood Urea Nitrogen 22 mg/dL (7-17); Calcium 9.3 mg/dL (8.4-10.2); Carbon Dioxide 32 mmol/L (22-30); Chloride 103 mmol/L (98-107); Estimated Glomerular Filt Rate > 60; Glucose 71 mg/dL (65-110); Potassium 4.2 mmol/L (3.4-5.0); Sodium 139 mmol/L (137-145); Total Protein 6.9 g/dL (6.3-8.2)
== END 2025-07-01 08:28 | disposition home or self-care (01) ==
LOC: ANHGOSHLAB 08:28
PROVIDERS: PCP Family Medicine; Visit Provider Nurse Practitioner Family
DX: K74.60 Unspecified cirrhosis of liver (principal); K90.0 Celiac disease
CPT/HCPCS: 36415; 80053; 85027; 85610; 86231

== ENCOUNTER 2025-08-09 08:57 | Outpatient (CLI) | payer OTHER, SELFPAY ==
--- OUTSIDE RECORDS SUMMARY | 2024-02-24 05:00 | XMS_ITS ---
Author Organization [facility] [employer] [facility] Address [address] [facility] [address] [place] [address] Care Team Providers Care Head Of Research & Insights Name Role Phone Mona Mack DO Primary Care Provider Unavailab Augusto Wolfe Unavailable [phone] Stefanie David Unavailable [phone] Social History Sex Assigned At : Social History Observation Description Sex Assigned At Female Encounters Encounter Location Date Provider Diagnosis [facility] [employer] [facility] [address] [facility] [address] [place] [address] 02/24/2024 Stefanie Hugo Plan Of Treatment Next Appt Details Provider Name:Augusto blanc, 08/09/2025 11:15:00 AM, [address], [facility] [address], [place], [address], Progress Notes * ANH MASONOB: 4 (59 yo F)Acc No.[id number]:02/24/2024 Patient: ANGELES RODRIGUEZ Provider: Edgardo HUGO LCSW :1965 A ge:58 Y S ex:Female Date:02/24/2024 Address:[address] [place], [place] [id number] Pcp:Mona Mack DO * Electronic signature of Alyse Hugo LCSW on 08/09/2025 at 09:12 AM AUTOMOBI[employer] SALESMAN Sign off status: Pending * Provider: Edgardo HUGO LCSW Date: 0 02/24/2024 Generated for Keith obrien/Alba/Donalditting on: 1 10/09/2024 09:12 AM AUTOMOBILE SALESMAN
--- OUTSIDE RECORDS SUMMARY | 2025-08-09 09:13 | XMS_ITS | Clinical Summary ---
Author Organization [facility] Address [address] [place] [address] Care Team Providers Care Systems Management Consultant Name Role Phone Ivy Feldman RN Unavailable [phone] Torin Hercules DO Primary Care Provider [phone] Source Comments [facility] [employer],non-owned Affiliates and Associated Physician Practices is amultiple site organization consisting of ambulatory clinics and hospital sitesin [place], [place], [place] and [place]. This disclosure is being madepursuant to the Care Everywhere program and may not contain all information available regarding this patient. 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[employer] Gender Identity Not on file Sexual Orientation [...] Relevant to Health Maintenance Insurance [employer] [facility] Address: [address] [place] [address] SELF PAY NO INSURANCE Member Subscriber Plan / Payer (Ef fective for All Dates) Name:Kayla Mason Member ID:Not on file Relation to Subscriber:Not on file Name:KAYLA MASON Subscriber ID:Not on file (Home) Address: [address] [place] [id number] Payer ID:Not on file Group ID:Not on file Type:Self Pay Address: [place], [place] [employer] Care Teams Systems Management Consultant Relationship Specialty Start Date End Date Ivy Feldman RN PCP - OBGYN Nurse Practitioner 01/06/13 Torin Hercules DO [address] [place] [id number] PCP - General 04/23/21
--- OUTSIDE RECORDS SUMMARY | 2025-08-09 09:13 | XMS_ITS | Patient Health Record ---
Author Organization [facility] [employer] Address [address] [place] [address] Care Team Providers Care Business Process Modeler Name Role Phone Mona Mack DO Primary Care Provider UnavailAugusto Sexton Unavailable [phone] Allergies Allergen (clinical drug ingredient) Drug/Non Drug [...] Date Status Estradiol 0.01 % (0.1 mg/gram) Cream Vaginal *Pick strength-form from [email or web address] for eRX* 11/11/2023 Active Magnesium Active lamoTRIgine 200 MG Tablet TAKE 1 TABLET BY MOUTH TWICE DAILY; Duration: 90 Active clonazePAM 1 MG Tablet TAKE 1 TABLET BY MOUTH DAILY; Duration: 30 08/08/2025 Active Omeprazole 20 MG Capsule Delayed Release [...] disorder, most recent episode mixed, in remission (23675658) Bipolar disorder, currently in remission, most recent episode unspecified (F31.70) 4 Active confirmed Problem Generalized anxiety disorder (51186844) Generalized anxiety disorder (F41.1) 4 Active confirmed Vital Signs Heart Rate 75 /min 05/24/2025 Height-cm 170.18 cm 05/24/2025 Blood pressure diastolic 80 mm Hg 05/24/2025 Weight-kg 80.74 kg 05/24/2025 Height 67.00 in 05/24/2025 Blood pressure systolic 117 mm Hg 05/24/2025 Weight 178 lbs 05/24/2025 BMI 27.88 kg/m2 05/24/2025 Encounters Encounter Location Date Provider Diagnosis [facility] [address] [place] [address] 01/17/2025 Augusto Cai Bipolar disorder, currently in remission, most recent episode unspecified F31.70 ; Encounter for screening for cardiovascular disorders Z13.6 ; Encounter for screening for depression Z13.31 and Generalized anxiety disorder F41.1 [facility] [address] [place] [address] 04/19/2025 Augusto Cai Bipolar disorder, currently in remission, most recent episode unspecified F31.70 and Generalized anxiety disorder F41.1 [facility] [address] [place] [address] 05/24/2025 Augusto Cai Bipolar disorder, currently in remission, most recent episode unspecified F31.70 and Generalized anxiety disorder F41.1 [facility] [address] [place] [address] 12/13/2024 Augusto Cai Generalized anxiety disorder F41.1 [facility] [address] [place] [address] 01/24/2025 Augusto Cai [facility], [facility] [address] [place] [address] 02/04/2025 Augusto Cai [facility], [facility] [address] [place] [address] 04/11/2025 Augusto Cai [facility], [facility] [address] [place] [address] 04/22/2025 Augustotyrone Wagneroza Bipolar disorder, currently in remission, most recent episode unspecified F31.70 [facility] [address] [place] [address] 05/05/2025 Augustotyrone Wagneroza [facility] [address] [place] [address] 05/09/2025 Augustotyrone Wagneroza Bipolar disorder, currently in remission, most recent episode unspecified F31.70 [place] [facility] [address] [facility] [address] [place] [address] 08/08/2025 Augustotyrone Wagneroza Generalized anxiety disorder F41.1 Assessments Encounter Date [...] decr. lamotrigine levels by 50% (UGT induced) 12/13/2024 Generalized anxiety disorder (ICD-10 - F41.1) 01/17/2025 Bipolar disorder, currently in remission, most recent episode unspecified (ICD-10 - F31.70) lamotrigine + estradiol (hormone replacement) consider incr. lamotrigine maint. dose 2-fold, initial dose escalation unchanged; no change if also on carbamazepine, phenytoin, phenobarbital, primidone or rifampin: combo may decr. lamotrigine levels by 50% (UGT induced) 08/08/2025 Generalized anxiety disorder (ICD-10 - F41.1) 04/19/2025 Bipolar disorder, currently in remission, most recent episode unspecified (ICD-10 - F31.70) lamotrigine + estradiol (hormone replacement) consider incr. lamotrigine maint. dose 2-fold, initial dose escalation unchanged; no change if also on carbamazepine, phenytoin, phenobarbital, primidone or rifampin: combo may decr. lamotrigine levels by 50% (UGT induced) 04/22/2025 Bipolar disorder, currently in remission, most recent episode unspecified (ICD-10 - F31.70) 04/19/2025 Generalized anxiety disorder (ICD-10 - F41.1) 05/24/2025 Generalized anxiety disorder (ICD-10 - F41.1) 01/17/2025 Encounter for screening for cardiovascular disorders (ICD-10 - Z13.6) 01/17/2025 Encounter for screening for depression (ICD-10 - Z13.31) 01/17/2025 Generalized anxiety disorder (ICD-10 - F41.1) 01/17/2025 [facility], female patient with history of bipolar [...] Dr. Susan Bangura for cirrhosis management 05/24/2025 Lashell Mason, female patient with history of psychiatric medication [...] Details Provider Name:Augusto blanc, 08/09/2025 11:15:00 AM, [facility] [address], [facility] [address], [place], [address], Insurance Providers Payer Name Payer Address Payer Phone Subscriber Number Group Number Insured Name Patient Relationship to Insured Coverage Start Date Coverage End Date [employer]an [address] [place] [address] [id number] ANGELES LANGFORD Self - patient is the insured Medical (General) History Medical History History ICD Code Problems: Bipolar disorder in remission Generalized anxiety disorder , Surgical History Surgery Date(Month/Year) Tonsilectomy/adenoids 09/29/1991 Removal of gallbladder (07797) 7 Hysterectomy (87493) 09/29/2000 knee replacement
[2025-08-09 15:09] LABS: Alanine Aminotransferase 15 U/L (6-35); Albumin Level 4.5 g/dL (3.5-5.1); Alkaline Phosphatase 93 U/L (38-126); Anion Gap 5 mmol/L (4-12); Aspartate Amino Transferase 37 U/L (14-36); Bilirubin,Total 0.4 mg/dL (0.2-1.3); Blood Urea Nitrogen 22 mg/dL (7-17); Calcium 9.3 mg/dL (8.4-10.2); Carbon Dioxide 31 mmol/L (22-30); Chloride 104 mmol/L (98-107); Cholesterol 164 mg/dL (0-200); Estimated Glomerular Filt Rate 59; HDL Direct 91 mg/dL; Potassium 4.5 mmol/L (3.4-5.0); Sodium 140 mmol/L (137-145); Total Protein 7.3 g/dL (6.3-8.2); Triglycerides 50 mg/dL (<150)
[2025-08-09 15:10] LABS: Glucose 59 mg/dL (65-110)
== END 2025-08-09 08:58 | disposition home or self-care (01) ==
LOC: ANHGOSHLAB 08:58
PROVIDERS: PCP Family Medicine; Visit Provider Nurse Practitioner
DX: E78.5 Hyperlipidemia, unspecified (principal); E55.9 Vitamin D deficiency, unspecified
CPT/HCPCS: 36415; 80053; 80061; 82306